=== PATIENT | male | born 1960 | race Caucasian/White ===

== ENCOUNTER 2020-11-05 05:53 | Inpatient (IN) | payer OTHER, SELFPAY ==
[~2020-11-05] VITALS: Ht 157.5 cm; Wt 48.1 kg
--- NOTE | 2020-11-05 05:54 | NUR ---
PT BIBA TO BED 08.
[2020-11-05] MEDS ORDERED: PIPERACILLIN/TAZOBACTAM 3.375 GM in DEXTROSE 5% 50 ML IV ONE (06:00)
[2020-11-05] MEDS ORDERED: ALBUTEROL SULFATE/IPRATROPIU 3 ML SOL IH ONE (06:00)
[2020-11-05] MEDS ORDERED: LEVOFLOXACIN 750 MG/D5W PREMIX 150 ML IV ONE (06:00)
[2020-11-05] MEDS ORDERED: VANCOMYCIN 1,000 MG in DEXTROSE 5% 250 ML IV ONE (06:00)
[2020-11-05] MEDS ORDERED: DEXAMETHASONE 4 MG/ML VIAL IVP ONE (06:00)
--- NOTE | 2020-11-05 06:00 | NUR ---
60 Y/O MALE BIBA FROM HOME WITH SOB, 76% ON CPAP. COVID+ ON 10/22/20. PT PLACED ON BIPAP BY RT. O2 SATURATION 93%. LUNGS SOUNDS WHEEZING. TACHYPNEA. MEDHX- DM NKA
--- NOTE | 2020-11-05 06:00 | NUR ---
20 G IV SITE ESTABLISHED TO R AC, SITE WAS PATENT. FLUSHED WITH 10 ML OF 0.9% NS. NO INFILTRATION, PAIN OR REDNESS NOTED. BLOOD WAS COLLECTED.
[2020-11-05 06:05] VITALS: BP 123/79
[2020-11-05] MEDS ORDERED: PIPERACILLIN/TAZOBACTAM 3.375 GM VIAL IV ONE (06:13)
[2020-11-05] MEDS ORDERED: VANCOMYCIN 1,000 MG VIAL ONE (06:13)
--- NOTE | 2020-11-05 06:15 | NUR ---
BLOOD DRAWS, LATONYA, NOVEL, AND FLU SAMPLES COLLECTED AND SENT TO LAB.
--- NOTE | 2020-11-05 06:44 | NUR ---
XRAY AT BEDSIDE
--- NOTE | 2020-11-05 06:44 | NUR ---
RT AT BEDSIDE
[2020-11-05 06:58] LABS: EOSINOPHILS % (AUTO) 0.2 % (0.0-4.0); HEMATOCRIT 44.7 % (36-52); HEMOGLOBIN 15.3 g/dL (12.0-18.0); LYMPHOCYTES # (AUTO) 0.9 K/uL (2.0-11.5); LYMPHOCYTES % (AUTO) 7.2 % (20.5-51.1); MEAN CORPUSCULAR HEMOGLOBIN 31 pg (27-31); MEAN CORPUSCULAR HGB CONC 34 g/dL (33-37); MEAN CORPUSCULAR VOLUME 89.9 fL (80-94); MONOCYTES # (AUTO) 0.6 K/uL (0.8-1.0); NEUTROPHILS # (AUTO) 10.7 K/uL (1.8-7.7); NEUTROPHILS % (AUTO) 87.6 % (42.2-75.2); PLATELET COUNT (AUTO) 304 K/uL (140-450); RED BLOOD CELL COUNT(AUTO) 4.97 MIL/uL (4.20-6.10); RED CELL DISTRIBUTION WIDTH 13.6 % (11.6-13.7); WHITE BLOOD COUNT (AUTO) 12.2 K/uL (4.8-10.8)
[2020-11-05 07:08] LABS: ALBUMIN 2.3 g/dL (3.4-5.0); ANION GAP 17.6 (8-16); CREATININE 0.8 mg/dL (0.6-1.3); POTASSIUM 3.6 mmol/L (3.5-5.1); TOTAL BILIRUBIN 1.4 mg/dL (0.0-1.0)
[2020-11-05] MEDS ORDERED: METF500T2 PO (07:11)
--- NOTE | 2020-11-05 07:21 | NUR ---
REPORT GIVEN TO TEE JOSEPH FOR CONTINUITY OF CARE
[2020-11-05 07:22] LABS: D-DIMER > 5000 ng/ml (0-400)
[2020-11-05] MEDS ORDERED: ENOXAPARIN 60 MG/0.6 ML SYR SUBQ ONE (07:45)
[2020-11-05 08:22] LABS: FIBRINOGEN > 475 mg/dL (200-400)
[2020-11-05] MEDS ORDERED: HYDROcodone/APAP 5/325 MG 1 TAB TAB PO ONE (08:30)
--- NOTE | 2020-11-05 08:46 | NUR ---
Performed WILBERT GUZMAN, walked to lab.
--- NOTE | 2020-11-05 09:10 | NUR ---
FAMILY CONTACT INFO TISHA (DAUGHTER) [phone] KARUNA (SON) [phone]
--- NOTE | 2020-11-05 10:15 | NUR ---
Lactic acid 2.8--critical value received from lab.
[2020-11-05] MEDS ORDERED: KCL 20 MEQ/WATER INJ PREMIX 200 ML IV PRN (11:00)
[2020-11-05] MEDS ORDERED: MORPHINE SULFATE 4 MG/ML SYR IVP PRN (11:00)
[2020-11-05] MEDS ORDERED: NACL 0.9% 1,000 ML IV SCH (11:00)
[2020-11-05] MEDS ORDERED: HYDROcodone/APAP 5/325 MG 1 TAB TAB PO PRN (11:00)
[2020-11-05] MEDS ORDERED: LORazepam 1 MG TAB PO PRN (11:00)
[2020-11-05] MEDS ORDERED: ONDANSETRON 4 MG/2 ML VIAL IVP PRN (11:00)
[2020-11-05] MEDS ORDERED: POTASSIUM CHLORIDE 10 MEQ TABER PO PRN (11:00)
[2020-11-05] MEDS ORDERED: MAGNESIUM OXIDE 400 MG TAB PO PRN (11:00)
[2020-11-05] MEDS ORDERED: MAG SULF 2000 MG/WATER PREMIX 50 ML IV PRN (11:00)
[2020-11-05] MEDS ORDERED: remdesivir COMMUNICATION ORDER 1 EA MISC MC PRN (11:05)
[2020-11-05] MEDS ORDERED: LORazepam 2 MG/ML VIAL IVP PRN (11:45)
[2020-11-05 11:46] VITALS: BP 118/69
[2020-11-05] MEDS ORDERED: AZITHROMYCIN 500 MG in DEXTROSE 5% 250 ML IV SCH (13:00)
[2020-11-05] MEDS ORDERED: AZITHROMYCIN 500 MG INJ VIAL IV ONE (13:03)
[2020-11-05] MEDS ORDERED: remdesivir CLINICAL MONITORING 1 EA MISC MC PRN (13:35)
--- NOTE | 2020-11-05 14:20 | NUR ---
PT AT LUNCH PT WAS PLACED ON HIGH FLOW NASAL CANNULA TO EAT. Sp02 WAS CONSISTENTLY IN THE MID 80S ALTHOUGH PT DENIED DYSPNEA/SOB AND WAS ABLE TO EAT ~1/2 HIS MEAL TRAY. PLACED PT BACK ON BiPAP 16 15/8 50%; Sp02 95% AND TOLERATING WELL.
[2020-11-05] MEDS ORDERED: REMDESIVIR (EUA) 200 MG in NACL 0.9% 100 ML IV SCH (17:00)
--- NOTE | 2020-11-05 18:16 | NUR ---
Spoke with grandson, Tanmay [phone] for pt updates.
[2020-11-05 18:42] VITALS: BP 116/70
--- NOTE | 2020-11-05 19:00 | NUR ---
RECEIVED TRANSFER OF CARE REPORT FROM TEE JOSEPH FOR CONTINUATION OF CARE.
--- NOTE | 2020-11-05 19:30 | NUR ---
60 YR OLD MALE AOX4. PATIENT WAS FOUND AWAKE ON BED IN SEMI-FOWLERS POSITION. PATIENT STATES NO PAIN, NO NAUSEA, AND NO VOMITING. PATIENT LUNG SOUNDS WHEEZES BILATERALLY. HEART SOUNDS WNL. BED LOCKED LOWEST POSITION WITH 2 SIDE RAILS UP AND CALL LIGHT WITHIN REACH. WILL CONTINUE TO MONITOR.
--- NOTE | 2020-11-05 21:45 | NUR ---
AOX4. PATIENT WAS FOUND AWAKE ON BED IN SEMI-FOWLERS POSITION. PATIENT STATES NO PAIN, NO NAUSEA, AND NO VOMITING. PATIENT LUNG SOUNDS WHEEZES BILATERALLY. HEART SOUNDS WNL. BED LOCKED LOWEST POSITION WITH 2 SIDE RAILS UP AND CALL LIGHT WITHIN REACH. WILL CONTINUE TO MONITOR.
[2020-11-05] MEDS: ENOXAPARIN 60 MG/0.6 ML SYR SUBQ SCH (21:57)
--- NOTE | 2020-11-05 22:40 | NUR ---
PATIENT WAS FOUND AWAKE ON BED IN SEMI-FOWLERS POSITION. PATIENT STATES NO PAIN, NO NAUSEA, AND NO VOMITING. PATIENT LUNG SOUNDS WHEEZES BILATERALLY WITH EQUAL RISE AND FALL UPON RESPIRATIONS. HEART SOUNDS WNL. BED LOCKED LOWEST POSITION WITH 2 SIDE RAILS UP AND CALL LIGHT WITHIN REACH. WILL CONTINUE TO MONITOR.
--- NOTE | 2020-11-05 22:54 | NUR ---
RT AT PATIENT BEDSIDE.
--- NOTE | 2020-11-06 01:20 | NUR ---
PATIENT WAS FOUND ASLEEP ON BED IN SEMI-FOWLERS POSITION. PATIENT HAS EQUAL RISE AND FALL UPON RESPIRATIONS. BED LOCKED LOWEST POSITION WITH 2 SIDE RAILS UP AND CALL LIGHT WITHIN REACH. WILL CONTINUE TO MONITOR.
--- NOTE | 2020-11-06 02:39 | NUR ---
PATIENT WAS FOUND AWAKE ON BED IN SEMI-FOWLERS POSITION. PATIENT STATES NO PAIN. PATIENT LUNG SOUNDS WHEEZES BILATERALLY WITH EQUAL RISE AND FALL UPON RESPIRATIONS. PATIENT REQUESTED URINAL. PATIENT WAS PROVIDED URINAL TO USE. BED LOCKED LOWEST POSITION WITH 2 SIDE RAILS UP AND CALL LIGHT WITHIN REACH. WILL CONTINUE TO MONITOR.
--- NOTE | 2020-11-06 03:37 | NUR ---
PATIENT WAS FOUND AWAKE ON BED IN SEMI-FOWLERS POSITION. PATIENT STATES NO PAIN. PATIENT HAS EQUAL RISE AND FALL UPON RESPIRATIONS. 425 ML OF CLEAR DARK YELLOW URINE EMPTIED FROM URINAL. BED LOCKED LOWEST POSITION WITH 2 SIDE RAILS UP AND CALL LIGHT WITHIN REACH. WILL CONTINUE TO MONITOR.
--- NOTE | 2020-11-06 04:25 | NUR ---
PATIENT FOUND ASLEEP IN SEMI-FOWLERS POSITION IN BED. PATIENT HAS EQUAL RISE AND FALL UPON RESPIRATIONS. BED LOCKED IN LOWEST POSITION WITH 2 SIDE RAILS UP. CALL LIGHT WITHIN REACH. [facility]
[2020-11-06 04:48] VITALS: BP 127/65
--- NOTE | 2020-11-06 06:06 | NUR ---
PATIENT FOUND ASLEEP IN SEMI-FOWLERS POSITION IN BED. PATIENT LUNG SOUNDS WHEEZES BILATERALLY. PATIENT HAS EQUAL RISE AND FALL UPON RESPIRATIONS. BED LOCKED IN LOWEST POSITION WITH 2 SIDE RAILS UP. CALL LIGHT WITHIN REACH. WILL CONTINUE TO MONTIOR.
--- NOTE | 2020-11-06 06:51 | NUR ---
PATIENT FOUND AWAKE IN SEMI-FOWLERS POSITION IN BED. PATIENT HAS EQUAL RISE AND FALL UPON RESPIRATIONS. PATIENT STATES NO PAIN. BED LOCKED IN LOWEST POSITION WITH 2 SIDE RAILS UP. CALL LIGHT WITHIN REACH. WILL CONTINUE TO MONTIOR.
[2020-11-06 07:17] LABS: BASOPHILS % (AUTO) 0.1 % (0.0-2.0); HEMATOCRIT 40.3 % (36-52); HEMOGLOBIN 13.5 g/dL (12.0-18.0); LYMPHOCYTES # (AUTO) 0.7 K/uL (2.0-11.5); MEAN CORPUSCULAR HEMOGLOBIN 30 pg (27-31); MEAN CORPUSCULAR HGB CONC 34 g/dL (33-37); MEAN CORPUSCULAR VOLUME 90.4 fL (80-94); MONOCYTES % (AUTO) 5.4 % (1.7-9.3); NEUTROPHILS # (AUTO) 17.2 K/uL (1.8-7.7); PLATELET COUNT (AUTO) 306 K/uL (140-450); RED BLOOD CELL COUNT(AUTO) 4.46 MIL/uL (4.20-6.10); RED CELL DISTRIBUTION WIDTH 13.8 % (11.6-13.7); WHITE BLOOD COUNT (AUTO) 18.9 K/uL (4.8-10.8)
--- NOTE | 2020-11-06 07:17 | NUR ---
TRANSFER OF CARE REPORT PROVIDED TO HEIDI JOSEPH.
--- NOTE | 2020-11-06 07:18 | NUR ---
REPORT RECEIVED FROM JAKE MORROW
[2020-11-06 07:26] VITALS: BP 103/64
[2020-11-06 07:44] LABS: LYMPHOCYTES % (AUTO) 3.5 % (20.5-51.1)
--- NOTE | 2020-11-06 07:45 | NUR ---
PT RESTING IN SEMI-FOWLERS. PT REPOSITIONED IN BED TO POSITION OF COMFORT. ALL PT NEEDS MET AT THIS TIME. VIDEO NETWORK ENGINEER IN PLACE. BED LOCKED IN LOWEST POSITION, SIDE RAILS X 2, CALL LIGHT IN REACH
--- NOTE | 2020-11-06 07:50 | NUR ---
FAMILY CALLED TO REQUEST UPDATE. STATUS UPDATE PROVIDED VIA PHONE CALL TO TISHA/SON (OSD CLERK).
[2020-11-06 07:56] LABS: ALBUMIN 1.9 g/dL (3.4-5.0); ANION GAP 14.9 (8-16); CARBON DIOXIDE 22.8 mmol/L (21-32); CREATININE 0.7 mg/dL (0.6-1.3); MAGNESIUM 2.3 mg/dL (1.8-2.4); POTASSIUM 3.7 mmol/L (3.5-5.1); TOTAL BILIRUBIN 0.6 mg/dL (0.0-1.0)
[2020-11-06] MEDS: DOCUSATE SODIUM 100 MG GELCAP PO SCH (08:25)
[2020-11-06] MEDS: ENOXAPARIN 60 MG/0.6 ML SYR SUBQ SCH ×2 (08:26→20:20)
[2020-11-06] MEDS: DEXAMETHASONE 4 MG/ML VIAL IVP SCH (08:26)
--- NOTE | 2020-11-06 08:27 | NUR ---
PATIENT HAS BEEN SCREENED AND CATEGORIZED MODERATE NUTRITION RISK. PATIENT WILL BE SEEN WITHIN 3-5 DAYS OF ADMISSION. 11/08/20 - 11/10/[address]
--- NOTE | 2020-11-06 08:50 | NUR ---
PT RESTING IN SEMI-FOWLERS POSITION. ALL PT NEEDS MET AT THIS TIME. AUXILIARY EQUIPMENT TENDER IN PLACE. EQUAL CHEST RISE AND FALL AND NO DISTRESS NOTED. BED LOCKED IN LOWEST POSITION, SIDE RAILS X2, CALL LIGHT IN REACH
--- NOTE | 2020-11-06 09:47 | NUR ---
STAYED AT BEDSIDE WHILE PT WAS SWITCHED TO 10L OXIMIZER DURING BREAKFAST, PT DESAT TO 80% WHILE EATING, PLACED BACK ON BIPAP.
--- NOTE | 2020-11-06 10:15 | NUR ---
GAVE REPORT TO JAKE BARTON VIA TELEPHONE
--- NOTE | 2020-11-06 10:15 | NUR ---
RECEIVED PHONE REPORT FROM ER NURSE BRISA, PT CC: WHEEING AND SOB WITH 60% PO2 ON ROOM AIR, ADMITTED FOR COVID PNA SEPSIS, HISTORY OF DM, ON BIPAP 90% FIO2, SATURATING @ 94-100%, IV TO R AC 20G, AND L FA 18G SL. PT ON CCHO 60GMN DIET, UNABLE TO EAT DUE TO DESATURATION. PT SKIN INTACT, USES URINAL. COVID POSITIVE ON RAPID, PENDING COVID PCR. FULL CODE, ADMITTING DR IS DR. REYEZ.
[2020-11-06 10:45] VITALS: BP 133/67
--- NOTE | 2020-11-06 10:45 | NUR ---
Patient will be admitted to care of Dr. Schulz. Admited to ICU. Will go to room 128-B. Belongings list completed. Report to JAKE Coyle.
--- NOTE | 2020-11-06 10:45 | NUR ---
Patient will be admitted to care of Dr. Schulz. Admited to Telemetry. Will go to room [facility]. [facility]-IT list completed. Report to JAKE Coyle. Addendum: 11/06/20 at 1105 by [facility] Amendment undone in EDM - 11/06/20 at 1110 by [facility] Patient will be admitted to care of Dr. Schulz. Admited to ICU. Will go to room 128-. [facility] list completed. Report to JAKE Coyle.
--- NOTE | 2020-11-06 11:00 | NUR ---
PT ARRIVED AT UNIT IN STABLE CONDITION, STABLE ON NON REBREATHER MASK 15LPM, SATURATING @ 96%. PT ABLE TO MOVE TO BED, TOLERATING WELL. WILL CONTINUE TO MONITOR.
--- NOTE | 2020-11-06 11:02 | NUR ---
PT MOVED FROM ER 8 TO [address] AND [address] ON NRB AT 15L 100% DOING WELL O2 SAT 98% AND HR 65 RR24 PT IS AWAKE AND ALERT BIPAP AT BEDSIDE RN ORALIA NOTIFIED
[2020-11-06 12:00] VITALS: BP 122/66
--- NOTE | 2020-11-06 15:33 | NUR ---
CALLED LAB TO FOLLOW-UP ON 1 UNIT CONVALESCENT PLASMA. PER LAB THEY HAVE ONE AND WILL CALL ME BACK. WILL CONTINUE TO MONITOR.
[2020-11-06 16:00] VITALS: BP 126/72
--- NOTE | 2020-11-06 16:52 | NUR ---
REC'D PT FROM ICU, PT ON 15L NRB, SATURATION 94%, A/Ox4, CCHO 60G DIET, LFA 15G, R.AC 20G SL. PT STABLE
--- NOTE | 2020-11-06 16:58 | NUR ---
GAVE REPORT TO TELEMETRY NURSE FOR CONTINUITY OF CARE. PATIENT IN STABLE CONDITION.
[2020-11-06] MEDS: REMDESIVIR (EUA) 100 MG in NACL 0.9% 100 ML IV SCH (17:00)
--- NOTE | 2020-11-06 18:00 | NUR ---
BEGAN PLASMA TRANSFUSION, PT STABLE NO SIGN OF DISTRESS. L. FOREARM 18G PATENT,
--- NOTE | 2020-11-06 18:30 | NUR ---
209ML OF PLASMA INFUSED PT TOLERATED PROCEDURE WELL.
--- NOTE | 2020-11-06 19:20 | NUR ---
RECEIVED BEDSIDE REPORT FROM DAY SHIFT NURSE. PATIENT AWAKE, RESPIRATION EVEN UNLABORED ON 15L NRB MASK O2 SATING 91% NO DISTRESS NOTED. SKIN IS WARM AND DRY. IV PATENT AND INTACT. S/P PLASMA. PLAN OF CARE WAS DISCUSSED. ALL SAFETY MEASURES IN PLACE. BED IS AT LOW POSITION. CALL LIGHT WITHIN REACH. WILL CONTINUE TO MONITOR
--- NOTE | 2020-11-06 19:30 | NUR ---
ENDORSED PT TO SAFE DEPOSIT ATTENDANT NURSE, PT STABLE, EATING. NO SIGN OF DISTRESS . 15L NRB SATURATION 92%
[2020-11-06 20:00] VITALS: BP 156/72
--- NOTE | 2020-11-06 20:20 | NUR ---
ALL SCHEDULED MEDS WERE GIVEN PER ORDER. NO ASE NOTED. WILL CONTINUE TO MONITOR
[2020-11-07] VITALS: BP 155/56
--- NOTE | 2020-11-07 00:20 | NUR ---
VITALS WERE TAKEN
--- NOTE | 2020-11-07 01:47 | NUR ---
MADE ROUNDS. PATIENT SLEEPING RESPIRATION EVEN UNLABORED ON 15L NRB MASK NO DISTRESS NOTED. WILL CONTINUE TO MONITOR
--- NOTE | 2020-11-07 02:50 | NUR ---
MADE ROUNDS. PATIENT SLEEPING RESPIRATION EVEN UNLABORED ON 15L NRB MASK NO DISTRESS NOTED. WILL CONTINUE TO MONITOR
[2020-11-07 04:00] VITALS: BP 148/74
--- NOTE | 2020-11-07 05:00 | NUR ---
MORNING CARE PROVIDED
--- NOTE | 2020-11-07 07:23 | NUR ---
ENDORSED PATIENT TO DAY SHIFT NURSE FOR CONTINUITY OF CARE.
[2020-11-07 08:00] VITALS: BP 153/78
--- NOTE | 2020-11-07 08:00 | NUR ---
RECEIVED REPORT FROM ANALYTICAL STRATEGIST FOR CONTINUITY OF CARE. PATIENT ALERT AWAKE ORIENTED X4. PATIENT ON 15L NRB SATURATION 96%. ON MONITOR SHOWS SR. WITH IV @ TKO, DRY AND INTACT. DENIES PAIN. INITIAL ASSESSMENT INITIATED. NEEDS ATTENDED. WILL CONTINUE TO MONITOR.
[2020-11-07 08:37] LABS: HEMATOCRIT 41.4 % (36-52); HEMOGLOBIN 13.9 g/dL (12.0-18.0); LYMPHOCYTES # (AUTO) 0.8 K/uL (2.0-11.5); LYMPHOCYTES % (AUTO) 3.5 % (20.5-51.1); MEAN CORPUSCULAR HEMOGLOBIN 31 pg (27-31); MEAN CORPUSCULAR HGB CONC 34 g/dL (33-37); MONOCYTES # (AUTO) 1.2 K/uL (0.8-1.0); MONOCYTES % (AUTO) 5.4 % (1.7-9.3); NEUTROPHILS # (AUTO) 20.3 K/uL (1.8-7.7); NEUTROPHILS % (AUTO) 91.1 % (42.2-75.2); PLATELET COUNT (AUTO) 373 K/uL (140-450); RED BLOOD CELL COUNT(AUTO) 4.55 MIL/uL (4.20-6.10); RED CELL DISTRIBUTION WIDTH 14.1 % (11.6-13.7); WHITE BLOOD COUNT (AUTO) 22.2 K/uL (4.8-10.8)
[2020-11-07] MEDS: DEXAMETHASONE 4 MG/ML VIAL IVP SCH (08:37)
[2020-11-07] MEDS: DOCUSATE SODIUM 100 MG GELCAP PO SCH (08:37)
[2020-11-07] MEDS: ENOXAPARIN 60 MG/0.6 ML SYR SUBQ SCH ×2 (08:38→20:46)
[2020-11-07 08:51] LABS: ALBUMIN 1.9 g/dL (3.4-5.0); ANION GAP 16.5 (8-16); CARBON DIOXIDE 22.2 mmol/L (21-32); CREATININE 0.6 mg/dL (0.6-1.3); MAGNESIUM 2.1 mg/dL (1.8-2.4); POTASSIUM 3.7 mmol/L (3.5-5.1); TOTAL BILIRUBIN 0.6 mg/dL (0.0-1.0)
[2020-11-07 12:00] VITALS: BP 142/75
[2020-11-07 13:17] LABS: FERRITIN 1739 ng/mL (30 - 400); LACTATE DEHYDROGENASE 631 IU/L (0-214)
--- NOTE | 2020-11-07 13:43 | NUR ---
SOCIAL WORK NOTE: Patient's Orientation Unable To Assess Information Provided By TISHA KING - DAUGHTER Comments SW WAS UNABLE TO MEET PATIENT AT BEDSIDE. SW COMPLETED ASSESSMENT WITH PATIENT'S DAUGHTER. Film Loader, Realtionship and Phone Number TISHA CARLOS [phone] [facility] Power of Secondary School Teacher No Does Patient Have a POLST No Identifying Problems No Social Work Triggers Is A Social Work Consult Needed No Mandate Report Filed No Explanation Of Identifying Problems PATIENT IS A 60-YEAR-OLD MALE ADMITTED FOR COVID, PNEUMONIA, AND SEPSIS. PATIENT HAS PMHX OF NIDDM. Admitted From Home Pre-Admission Level Of Functioning Status Independent/Ambulatory Prior Resources/Services Used In Last 12 Months No Prior Resources Used Prior DME No Prior DME Used Dialysis Comments N/A Living Situation Apartment Lives With Family Patient Had Caregiver No Home Support No Caregiver Issues Financial Issues No Known Financial Issue Referral To The Financial Counselor Needed No Factors/Needs No D/C Needs Identified Pt/Rep Participated In Discharge Plan Yes Patient/Family Agress With Discharge Plan Yes Discharge Plan Comments TENTATIVE DISCHARGE PLAN IS FOR PATIENT TO RETURN HOME. DC Plan Status Initiated Addendum: 12/02/20 at 0851 by Blas Bradshaw YEMI RECEIVED PHYSICIANS ORDER TO REMOVE TISHA MALIK DECISION MAKER. YEMI CONTACTED EVELIA MALIK PER PHYSICIANS ORDER [phone]. EVELIA PROVIDED PHONE TO FATHER, KARUNA MALIK WHO CAN BE CONTACTED [phone]. KARUNA STATED THAT PATIENT REQUESTED FOR CHANGE WELL. YEMI CONTACTED MEDICAL TECHNOLOGIST BLOOD BANK WHO STATED THAT PATIENT WAS NOT ALERT AND ORIENTED. YEMI CONTACTED EVELIA AND STATED THAT REQUEST CANNOT BE DONE WITHOUT CONSENT OF PATIENT.
[2020-11-07 16:00] VITALS: BP 137/68
--- NOTE | 2020-11-07 16:02 | NUR ---
DC PLANNIN YRS OLD MALE PATIENT WAS ADMITTED FROM HOME WITH A DX OF COVID PNEUMONIA AND SEPSIS. PT HAS A HX OF COVID ON 10/22/20 . CXR SHOWED CONSISTENT WITH COVID 19 MULTIFOCAL PNEUMONIA . ON 15L/NRB SATING 92%. STARTED COVID TREATMENT, ROCEPHIN AND AZITHROMYCIN IV ABX. CONSULTED WITH ID AND PULMO. DC PLAN TO GO HOME WHEN STABLE CM TO FOLLOW. Addendum: 11/11/20 at 0816 by Isaura Parnell RECEIVED A CALL FROM JUAN J OF [employer]. CM ASSIGNED IS ELIZABETH [phone], MAIN NUMBER [phone] [facility] FOR CASE MANAGEMENT AND FAX [phone]. Addendum: 11/14/20 at 1210 by Christine Figueroa RN DC PLANNING CALLED [facility] SPOKE WITH ISRAEL WOOD I NEED TO CALL [phone], CALLED THE NUMBER SPOKE WITH DAQUAN THE CASE SOCIAL SCIENCE MANAGER STATED [facility] IS NO AT RISK AND TO CALL [facility] IS AT RISK FOR HOSPITAL STAY [facility] NUMBER [phone]. CALLED THE NUMBER SPOKE WITH PAVITHRA BRINK UPDATED HER PT'S CLINICAL PROVIDE AUTH # [id number] STATED REVIEWED AND APPROVED THE STAY. KADE ARSHAD PROVIDE HER CELL # [phone] AND TO LET HER KNOW ANY DC PLAN OR UPDATE. CM TO FOLLOW Addendum: 11/15/20 at 1118 by Christine Figueroa RN DC PLANNING: CALLED PAVITHRA BRINK AT [facility] [phone] LEFT A MESSAGE. CM TO FOLLOW Addendum: 11/15/20 at 1347 by Christine Figueroa RN DC PLANNING: PT HAD LTAC ORDER FAXED TO [employer] AND FAXED TO JAMES AT [facility]. CUBA TO FOLLOW. CALLED PT'S DAUGHTER SPOKE WITH TISHA EXPLAIN THE NEED FOR LTAC AND JAMES FROM [facility] WILL CONTACT HER. CM TO FOLLOW Addendum: 11/16/20 at 1424 by Valery Petty CM NIKKO EARLY: SET UP WILL CALL TRANSPORTATION WITH [facility] [phone]. SET UP WITH AN RT. PENDING BED NUMBER FOR [facility]. Addendum: 11/16/20 at 1435 by Valery Petty CM NIKKO EARLY: SPOKE TO CUBA LAUREANO AT [facility] TO GET AUTH FOR TRANSPORTATION. SHE ASKED WHERE PATIENT WAS GOING PROVIDED HER WITH THE [facility] LOCATION. SHE STATED THAT SHE HAS TO GET APPROVAL FROM THE DOCTOR FIRST ON LOCATION BECAUSE PATIENT WAS SUPPOSED TO GO TO [facility] HOWEVER SHE SAID IT SHOULD BE APPROVED BECAUSE THERE IS AN OUTBREAK AT THIS TIME IN [facility]. SHE IS GOING TO REACH OUT TO THE DOCTOR. SHE IS REQUESTING THAT JAMES FROM [place] CONTACTS HER. PROVIDED JAMES WITH SRIDEVI'S NUMBER Addendum: 11/17/20 at 0924 by Valery Petty CM NIKKO FARM EQUIPMENT OPERATOR: SPOKE TO CUBA RIZO FOR [facility] [id number] AND AUTH FOR [facility] [id number] Addendum: 11/17/20 at 1521 by Christine Figueroa RN DC PLANNING: STILL AWAITING FOR BED AT [facility],PER JAMES AT [facility] WILL CALL BACK WHEN HE HAS A BED. CM TO FOLLOW Addendum: 11/18/20 at 1355 by Christine Figueroa RN DC PLANNING: CALLED JAMES JIMENEZ TO FOLLOW UP WITH THE TRANSFER TO [facility]. PER JAMES NO BED AVAILABLE AT THIS TIME. ON O2 HIGH FLOW 40L/NC FIO2 100% SATING 90%. CM TO FOLLOW UP Addendum: 11/18/20 at 1640 by Christine Figueroa RN DC PLANNING: RECEIVED A CALL FROM TONY TONG WITH [facility] [place] [phone] ACCEPTED PATIENT UNDER THE CARE OF DR RODRIGUEZ/DEVON ROOM NUMBER [id number]. BUT PT CONDITION CHANGED AND TRANSFERRED TO ICU, NOTIFIED JAMES AND CUBA TO FOLLOW. Addendum: 11/18/20 at 1645 by Christine Figueroa RN DC PLANNING: CALLED INSURANCE [employer] SPOKE WITH PAVITHRA NOTIFIED HER PT IS IN ICU AT THIS TIME, AND HEL THE TRANSFER TO LTAC. Addendum: 11/21/20 at 1409 by Isaura Parnell CM REMAINS IN ICU. INTUBATED TO VENT FIO2 40%, PEEP 10, O2 SAT 92%. SEDATED WITH FENTANYL AND PROPOFOL. ON TPN, ROCEPHIN. PER PULMO -DAILY SAT TOLERATED, O2 SAT GOAL 88% AND ABOVE. Addendum: 11/21/20 at 1618 by Isaura Parnell CM CONTACTED CUBA LAUREANO AT [employer] [phone] TO PROVIDE UPDATES, NO ANSWER. LEFT MESSAGE. Addendum: 11/29/20 at 1429 by Isaura Parnell CM REMAINS INTUBATED TO VENT FIO2 50%, PEEP 6, O2 SAT 93%. SEDATED WITH FENTANYL, PROPOFOL. PER PULMO - WEAN TOLERATED, O2 SAT GOAL 88% AND ABOVE.
[2020-11-07] MEDS: REMDESIVIR (EUA) 100 MG in NACL 0.9% 100 ML IV SCH (17:24)
--- NOTE | 2020-11-07 18:53 | NUR ---
PATIENT RESTING IN BED, TITRATE O2 TO 12L NRB, SATURATION 94%. WILL ENDORSE TO THE NEXT SHIFT.
--- NOTE | 2020-11-07 19:20 | NUR ---
RECEIVED BEDSIDE REPORT FROM DAY SHIFT NURSE. PATIENT AWAKE, RESPIRATION EVEN UNLABORED ON 15L NRB MASK O2 SATING 91-93% NO DISTRESS NOTED. SKIN IS WARM AND DRY. IV PATENT AND INTACT. PLAN OF CARE WAS DISCUSSED. ALL SAFETY MEASURES IN PLACE. BED IS AT LOW POSITION. CALL LIGHT WITHIN REACH. WILL CONTINUE TO MONITOR
[2020-11-07 20:00] VITALS: BP 137/72
--- NOTE | 2020-11-07 20:45 | NUR ---
ALL SCHEDULED MEDS WERE GIVEN PER ORDER. NO ASE NOTED. WILL CONTINUE TO MONITOR
--- NOTE | 2020-11-07 23:26 | NUR ---
MADE ROUNDS. PATIENT SLEEPING RESPIRATION EVEN UNLABORED ON 15L NRB MASK. NO DISTRESS NOTED. WILL CONTINUE TO MONITOR.
[2020-11-08] VITALS: BP 131/66
--- NOTE | 2020-11-08 02:07 | NUR ---
MADE ROUNDS. PATIENT SLEEPING RESPIRATION EVEN UNLABORED ON 15L NRB MASK. NO DISTRESS NOTED. WILL CONTINUE TO MONITOR.
[2020-11-08 04:00] VITALS: BP 138/68
--- NOTE | 2020-11-08 04:15 | NUR ---
MORNING CARE PROVIDED
--- NOTE | 2020-11-08 07:18 | NUR ---
ENDORSED PATIENT TO DAY SHIFT NURSE FOR CONTINUITY OF CARE
--- NOTE | 2020-11-08 07:22 | NUR ---
RECEIVED REPORT FROM NIGHT NURSE PATIENT IS AAOX4 ON 15LPM NON REBREATHER MASK SATURATION AT 90-91% S/P PLASMA ON NOVEMBER 06, 2020 SKIN INTACT, IV INTACT ON LEFT FA AND RIGHT AC, TKO SAFETY MEASURES IN PLACE AND CALL LIGHT WITHIN REACH.
[2020-11-08 08:00] VITALS: BP 131/67
[2020-11-08] MEDS: DOCUSATE SODIUM 100 MG GELCAP PO SCH (08:25)
[2020-11-08] MEDS: ENOXAPARIN 60 MG/0.6 ML SYR SUBQ SCH ×2 (08:26→20:34)
[2020-11-08] MEDS: DEXAMETHASONE 4 MG/ML VIAL IVP SCH (08:26)
[2020-11-08 08:38] LABS: BASOPHILS % (AUTO) 0.1 % (0.0-2.0); HEMATOCRIT 41.3 % (36-52); HEMOGLOBIN 13.9 g/dL (12.0-18.0); LYMPHOCYTES # (AUTO) 0.9 K/uL (2.0-11.5); LYMPHOCYTES % (AUTO) 4.9 % (20.5-51.1); MEAN CORPUSCULAR HEMOGLOBIN 31 pg (27-31); MEAN CORPUSCULAR HGB CONC 34 g/dL (33-37); MEAN CORPUSCULAR VOLUME 90.9 fL (80-94); MONOCYTES # (AUTO) 0.9 K/uL (0.8-1.0); MONOCYTES % (AUTO) 5.2 % (1.7-9.3); NEUTROPHILS # (AUTO) 15.8 K/uL (1.8-7.7); NEUTROPHILS % (AUTO) 89.8 % (42.2-75.2); PLATELET COUNT (AUTO) 366 K/uL (140-450); RED BLOOD CELL COUNT(AUTO) 4.54 MIL/uL (4.20-6.10); RED CELL DISTRIBUTION WIDTH 13.7 % (11.6-13.7); WHITE BLOOD COUNT (AUTO) 17.6 K/uL (4.8-10.8)
--- NOTE | 2020-11-08 08:40 | NUR ---
MEDICATION DUE GIVEN CHECK VITAL SIGNS PRIOR TO MEDICATION BP 131/67 AL 83 AND OXYGEN SATURATION AT 90% NO DISTRESS NOTED PATIENT TOLERATED WELL, GAVE PT BREAKFAST, SAFETY MEASURES IN PLACE AND CALL L8IGHT WITHIN REACH. WILL CONTINUE TO MONITOR.
[2020-11-08 09:53] LABS: CREATININE 0.6 mg/dL (0.6-1.3); MAGNESIUM 2.3 mg/dL (1.8-2.4); POTASSIUM 3.8 mmol/L (3.5-5.1); TOTAL BILIRUBIN 0.8 mg/dL (0.0-1.0)
[2020-11-08 12:00] VITALS: BP 118/65
--- NOTE | 2020-11-08 12:00 | NUR ---
MADE ROUNDS AT THIS TIME PATIENT IS STABLE NO DISTRESS NOTED AND VITAL SIGNS TAKEN.
[2020-11-08 12:53] LABS: ANION GAP 16.9 (8-16); CARBON DIOXIDE 19.9 mmol/L (21-32)
--- NOTE | 2020-11-08 14:00 | NUR ---
PATIENT IS STABLE NO DISTRESS NOTED
[2020-11-08] MEDS: REMDESIVIR (EUA) 100 MG in NACL 0.9% 100 ML IV SCH (16:41)
--- NOTE | 2020-11-08 16:48 | NUR ---
MEDICATION DUE GIVEN INFUSING WELL.
[2020-11-08 17:00] VITALS: BP 144/73
--- NOTE | 2020-11-08 19:30 | NUR ---
RECEIVED BEDSIDE REPORT FROM DAY SHIFT NURSE. PATIENT AWAKE EATING DINNER, RESPIRATION EVEN UNLABORED ON 15L NRB MASK O2 SATING 91-93% NO DISTRESS NOTED. SKIN IS WARM AND DRY. IV PATENT AND INTACT. PLAN OF CARE WAS DISCUSSED. ALL SAFETY MEASURES IN PLACE. BED IS AT LOW POSITION. CALL LIGHT WITHIN REACH. WILL CONTINUE TO MONITOR
--- NOTE | 2020-11-08 19:40 | NUR ---
GAVE ENDORSEMENT TO PROJECT ENGINEERING MANAGER NURSE. PATIENT IS IN STABLE CONDITION.
[2020-11-08 20:00] VITALS: BP 96/42
--- NOTE | 2020-11-08 20:30 | NUR ---
ALL SCHEDULED MEDS WERE GIVEN PER ORDER. NO ASE NOTED. WILL CONTINUE TO MONITOR
--- NOTE | 2020-11-08 22:25 | NUR ---
MADE ROUNDS. PATIENT IS AWAKE RESPIRATION EVEN UNLABORED ON 15LNRB MASK NO DISTRESS NOTED. WILL CONTINUE TO MONITOR
[2020-11-09] VITALS: BP 114/59
--- NOTE | 2020-11-09 01:27 | NUR ---
MADE ROUNDS. PATIENT SLEEPING RESPIRATION EVEN UNLABORED ON 15L NRB MASK NO DISTRESS NOTED. WILL CONTINUE TO MONITOR
--- NOTE | 2020-11-09 03:08 | NUR ---
MADE ROUNDS. PATIENT SLEEPING RESPIRATION EVEN UNLABORED ON 15L NRB MASK. NO DISTRESS NOTED. WILL CONTINUE TO MONITOR
[2020-11-09 04:00] VITALS: BP 129/68
--- NOTE | 2020-11-09 07:33 | NUR ---
ENDORSED PATIENT TO DAY SHIFT NURSE FOR CONTINUITY OF CARE
[2020-11-09 08:00] VITALS: BP 114/67
[2020-11-09 08:01] LABS: BASOPHILS % (AUTO) 0.1 % (0.0-2.0); EOSINOPHILS % (AUTO) 0.2 % (0.0-4.0); HEMATOCRIT 42.4 % (36-52); HEMOGLOBIN 14.1 g/dL (12.0-18.0); LYMPHOCYTES # (AUTO) 0.9 K/uL (2.0-11.5); LYMPHOCYTES % (AUTO) 4.9 % (20.5-51.1); MEAN CORPUSCULAR HEMOGLOBIN 30 pg (27-31); MEAN CORPUSCULAR HGB CONC 33 g/dL (33-37); MEAN CORPUSCULAR VOLUME 90.8 fL (80-94); MONOCYTES % (AUTO) 5.2 % (1.7-9.3); NEUTROPHILS # (AUTO) 16.8 K/uL (1.8-7.7); NEUTROPHILS % (AUTO) 89.6 % (42.2-75.2); PLATELET COUNT (AUTO) 359 K/uL (140-450); RED BLOOD CELL COUNT(AUTO) 4.67 MIL/uL (4.20-6.10); RED CELL DISTRIBUTION WIDTH 13.6 % (11.6-13.7); WHITE BLOOD COUNT (AUTO) 18.8 K/uL (4.8-10.8)
[2020-11-09] MEDS: ACETAMINOPHEN 325 MG TAB PO PRN (08:28)
[2020-11-09 09:23] LABS: ANION GAP 19.7 (8-16); CARBON DIOXIDE 19.2 mmol/L (21-32); CREATININE 0.6 mg/dL (0.6-1.3); MAGNESIUM 1.9 mg/dL (1.8-2.4); POTASSIUM 3.9 mmol/L (3.5-5.1); TOTAL BILIRUBIN 0.9 mg/dL (0.0-1.0)
[2020-11-09] MEDS: DOCUSATE SODIUM 100 MG GELCAP PO SCH (10:59)
[2020-11-09] MEDS: DEXAMETHASONE 4 MG/ML VIAL IVP SCH (10:59)
[2020-11-09] MEDS: ENOXAPARIN 60 MG/0.6 ML SYR SUBQ SCH ×2 (11:00→21:31)
[2020-11-09 12:00] VITALS: BP 103/51
[2020-11-09 16:00] VITALS: BP 117/70
[2020-11-09] MEDS: REMDESIVIR (EUA) 100 MG in NACL 0.9% 100 ML IV SCH (17:26)
[2020-11-09 20:00] VITALS: BP 108/63
[2020-11-10] VITALS: BP 100/52
--- NOTE | 2020-11-10 | NUR ---
MADE ROUNDS , NO S/SX OF ACUTE DISTRESS NOTED . WILL CONT. TO MONITOR
--- NOTE | 2020-11-10 02:00 | NUR ---
SLEEPING - O2 SAT WNL .
--- NOTE | 2020-11-10 02:08 | NUR ---
PT SEEN AND ASSESSED. PT ON NON REBREATHER 15L WITH SPO2 98%. PT IN NO RESPIRATORY DISTRESS AT THIS TIME. WILL CONTINUE TO MONITOR PT.
[2020-11-10 04:00] VITALS: BP 97/60
--- NOTE | 2020-11-10 04:00 | NUR ---
NO S/SX OF ACUTE DISTRESS NOTED - O2 SAT WNL .
--- NOTE | 2020-11-10 06:00 | NUR ---
NO COMPLAIN MADE . O2 SAT WNL .
[2020-11-10 06:07] LABS: LD2 FRACTION 25 % (25-40); LD3 FRACTION 27 % (17-27); LD5 FRACTION 18 % (4-20)
--- NOTE | 2020-11-10 07:40 | NUR ---
ENDORSED - PT - STABLE
[2020-11-10 09:10] LABS: BASOPHILS % (AUTO) 0.1 % (0.0-2.0); EOSINOPHILS % (AUTO) 0.1 % (0.0-4.0); HEMATOCRIT 41.5 % (36-52); HEMOGLOBIN 13.8 g/dL (12.0-18.0); LYMPHOCYTES # (AUTO) 0.8 K/uL (2.0-11.5); MEAN CORPUSCULAR HEMOGLOBIN 30 pg (27-31); MEAN CORPUSCULAR HGB CONC 33 g/dL (33-37); MEAN CORPUSCULAR VOLUME 91.1 fL (80-94); MONOCYTES # (AUTO) 1.2 K/uL (0.8-1.0); MONOCYTES % (AUTO) 6.2 % (1.7-9.3); NEUTROPHILS # (AUTO) 16.8 K/uL (1.8-7.7); NEUTROPHILS % (AUTO) 89.6 % (42.2-75.2); PLATELET COUNT (AUTO) 355 K/uL (140-450); RED BLOOD CELL COUNT(AUTO) 4.56 MIL/uL (4.20-6.10); RED CELL DISTRIBUTION WIDTH 13.6 % (11.6-13.7); WHITE BLOOD COUNT (AUTO) 18.8 K/uL (4.8-10.8)
[2020-11-10 09:17] VITALS: BP 97/60
[2020-11-10 10:17] LABS: ANION GAP 16.3 (8-16); CARBON DIOXIDE 20.9 mmol/L (21-32); CREATININE 0.6 mg/dL (0.6-1.3); MAGNESIUM 2.6 mg/dL (1.8-2.4); POTASSIUM 4.2 mmol/L (3.5-5.1); TOTAL BILIRUBIN 0.7 mg/dL (0.0-1.0)
[2020-11-10 10:25] LABS: ALBUMIN 1.9 g/dL (3.4-5.0)
[2020-11-10] MEDS: DEXAMETHASONE 4 MG/ML VIAL IVP SCH (11:51)
[2020-11-10] MEDS: DOCUSATE SODIUM 100 MG GELCAP PO SCH (11:51)
[2020-11-10] MEDS: ENOXAPARIN 60 MG/0.6 ML SYR SUBQ SCH ×2 (11:53→22:40)
[2020-11-10 12:00] VITALS: BP 102/60
[2020-11-10 14:08] LABS: LD1 FRACTION 10 % (17-32); LD4 FRACTION 20 % (5-13)
[2020-11-10 16:00] VITALS: BP 96/59
--- NOTE | 2020-11-10 16:32 | NUR ---
11/10/20 RD INITIAL ASSESSMENT COMPLETED PLEASE REFER TO NUTRITION ASSESSMENT UNDER CARE ACTIVITY FOR ESTIMATED NUTRITIONAL NEEDS. 1. CONTINUE [facility] DIET TOLERATED 2. RECOMMEND GLUCERNA TID 3. RD TO FOLLOW-UP 3-5 DAYS, MODERATE RISK JOSE LUIS DOS SANTOS, RD
--- NOTE | 2020-11-10 18:56 | NUR ---
Patient alert and oriented and remains on 15 L non rebreather oxygen. Vitals stable and able to verbalize needs. Breathing is labored when in supine position but improves with proning and side sleeping. Educated patient on importance of proning, coughing and deep breathing, patient verbalized understanding.
[2020-11-10 20:00] VITALS: BP 113/56
[2020-11-11] VITALS: BP 104/56
--- NOTE | 2020-11-11 | NUR ---
MADE ROUNDS , NO S/SX OF ACUTE DISTRESS NOTED - O2 SAT WNL .
[2020-11-11 04:00] VITALS: BP 101/58
--- NOTE | 2020-11-11 04:00 | NUR ---
MADE ROUNDS . NO S/SX OF ACUTE DISTRESS NOTED .
--- NOTE | 2020-11-11 05:00 | NUR ---
AWAKE C/O COUGH - WILL REFER TO DR. VERONICA . Addendum: 11/11/20 at 0847 by Yolette Davis RN NO REPONSE TO DR. VERONICA .
--- NOTE | 2020-11-11 07:30 | NUR ---
ENDORSED - PT - STABLE . INFORMED AM NURSE PT C/O COUGH AND I REFERRED ABOUT IT TO DR. VERONICA BUT NO RESPONSE
[2020-11-11 09:25] VITALS: BP 110/60
[2020-11-11] MEDS: DOCUSATE SODIUM 100 MG GELCAP PO SCH (10:49)
[2020-11-11] MEDS: DEXAMETHASONE 4 MG/ML VIAL IVP SCH (10:50)
[2020-11-11] MEDS: ENOXAPARIN 60 MG/0.6 ML SYR SUBQ SCH ×2 (10:51→21:38)
[2020-11-11 12:00] VITALS: BP 111/54
[2020-11-11 16:00] VITALS: BP 97/60
[2020-11-11 20:00] VITALS: BP 112/74
[2020-11-12] VITALS: BP 115/61
[2020-11-12 04:00] VITALS: BP 109/61
--- NOTE | 2020-11-12 07:35 | NUR ---
REC'D BEDSIDE ENDORSEMENT FROM NIGHTSHIFT NURSE TO PROCEED W/ CONTINUITY OF CARE.
[2020-11-12 08:00] VITALS: BP 99/58
[2020-11-12 08:32] LABS: BASOPHILS # (AUTO) 0.1 K/uL (0.00-0.22); EOSINOPHILS # (AUTO) 0.2 K/uL (0-0.4); LYMPHOCYTES # (AUTO) 0.9 K/uL (2.0-11.5); MEAN CORPUSCULAR HGB CONC 34 g/dL (33-37); MEAN CORPUSCULAR VOLUME 91.8 fL (80-94)
[2020-11-12 08:39] LABS: BASOPHILS % (AUTO) 0.6 % (0.0-2.0); EOSINOPHILS % (AUTO) 1.1 % (0.0-4.0); HEMATOCRIT 45.3 % (36-52); HEMOGLOBIN 15.2 g/dL (12.0-18.0); LYMPHOCYTES % (AUTO) 4.5 % (20.5-51.1); MEAN CORPUSCULAR HEMOGLOBIN 31 pg (27-31); MONOCYTES # (AUTO) 1.5 K/uL (0.8-1.0); MONOCYTES % (AUTO) 7.2 % (1.7-9.3); NEUTROPHILS # (AUTO) 17.8 K/uL (1.8-7.7); NEUTROPHILS % (AUTO) 86.6 % (42.2-75.2); PLATELET COUNT (AUTO) 419 K/uL (140-450); RED BLOOD CELL COUNT(AUTO) 4.94 MIL/uL (4.20-6.10); RED CELL DISTRIBUTION WIDTH 14.1 % (11.6-13.7); WHITE BLOOD COUNT (AUTO) 20.6 K/uL (4.8-10.8)
[2020-11-12 09:29] LABS: ANION GAP 16.9 (8-16); CARBON DIOXIDE 22.1 mmol/L (21-32); CREATININE 0.6 mg/dL (0.6-1.3); TOTAL BILIRUBIN 0.8 mg/dL (0.0-1.0)
[2020-11-12] MEDS: DOCUSATE SODIUM 100 MG GELCAP PO SCH (09:33)
[2020-11-12] MEDS: DEXAMETHASONE 4 MG/ML VIAL IVP SCH (09:33)
[2020-11-12] MEDS: ENOXAPARIN 60 MG/0.6 ML SYR SUBQ SCH ×2 (09:38→21:25)
--- NOTE | 2020-11-12 09:47 | NUR ---
ADMINISTERED PRESCRIBED MEDS PER MD ORDER. PATIENT TOLERATED WELL. MEDICATION REINFORCEMENT NEEDED DUE TO LANGUAGE BARRIER. SAFETY MEASURES IN PLACE. WILL CONT TO MONITOR.
[2020-11-12 12:00] VITALS: BP 124/61
--- NOTE | 2020-11-12 12:06 | NUR ---
HOURLY ROUNDING PERFORMED ON PATIENT. PATIENT LAYING DOWN IN BED. DENIES PAIN. SPO2 93%. NO SIGNS OF DISTRESS. SAFETY MEASURES IN PLACE. WILL CONT TO MONITOR.
--- NOTE | 2020-11-12 15:48 | NUR ---
PATIENT RR 35, SPO2 86%, PATIENT USING ACCESSORY MUSCLES. STATES FEELS LIKE THE O2 IS LEAKING OUT OF MASK. CALLED RT TO ASSESS. ADMINISTERED PRN ATIVAN PER MD ORDER. SAFETY MEASURES IN PLACE. WILL CONT TO MONITOR.
[2020-11-12 16:00] VITALS: BP 107/56
[2020-11-12 20:00] VITALS: BP 108/57
--- NOTE | 2020-11-12 23:30 | NUR ---
MID SHIFT NOTE: PT'S FAMILY AT WINDOW. PT APPEARED UNCOMFORTABLE W MASK. PT VERBALIZED BEING HUNGRY. FAMILY ON PHONE CALLED TO EXPRESS CONCERN. EXPLAINED TO PT'S FAMILY EATING W/O MASK COULD CAUSE OXYGENATION PROBLEMS (O2 SAT AT THIS TIME WAS 87% AND RR 44). ENCOURAGED PT TO DRINK ENSURE (AT BEDSIDE) WHILE STILL WEARING MASK. PT AGREED AND DID SO (COMPLETED ONE CARTON). PT DID STILL HAVE TROUBLE WEARING MASK, SO KERLIX PADDING APPLIED TO SIDES BUT PT REMOVED THEM. PT THEN GIVEN ATIVAN PER EMAR. MEDICATION VERY EFFECTIVE IN TREATING PT'S ANXIETY. RR DOWN TO 32, O2 SAT = 91%, AND PT APPEARS TO BE SLEEPING COMFORTABLY. PT'S FAMILY CALLED AGAIN AND THIS NURSE TRIED TO EXPLAIN TO FAMILY THAT PT IS NOW MORE RELAXED, SLEEPING, WITH A HIGHER O2 SAT AND BREATHING THAT IS MORE CLOSE TO A NORMAL RATE
[2020-11-13 02:49] VITALS: BP 111/63
[2020-11-13] MEDS ORDERED: LORazepam 1 MG TAB ONE (06:24)
--- NOTE | 2020-11-13 07:30 | NUR ---
RECEIVED BEDSIDE ENDORSEMENT FROM NIGHTSMTFT NURSE FOR CONTINUITY OF CARE.
[2020-11-13 08:00] VITALS: BP 106/60
[2020-11-13] MEDS: DOCUSATE SODIUM 100 MG GELCAP PO SCH (10:10)
[2020-11-13] MEDS: DEXAMETHASONE 4 MG/ML VIAL IVP SCH (10:10)
[2020-11-13] MEDS: ENOXAPARIN 60 MG/0.6 ML SYR SUBQ SCH ×2 (10:13→19:59)
--- NOTE | 2020-11-13 10:28 | NUR ---
ADMINISTERED PRESCRIBED MEDS PER MD ORDER. PATIENT TOLERATED WELL. MEDICATION EDUCATION REINFORCEMENT NEEDED DUE TO LANGUAGE BARRIER. ASSISTED PATIENT TO PRONE POSITION PER MD RECOMMENDATION. PATIENT SPO2 95% AFTER PRONING. SAFETY MEASURES IN PLACE. WILL CONT TO MONITOR.
[2020-11-13 12:00] VITALS: BP 106/56
--- NOTE | 2020-11-13 12:16 | NUR ---
HOURLY ROUNDING PERFORMED. PATIENT FOUND SIDE LYING W/ HIGH FLOW NC OFF. SPO2 81%. PLACED PATIENT BACK TO PRONE POSITION, PLACED HI FLOW NC BACK ON UNDERNEATH NRB. PATIENT SPO2 NOW AT 90%. ADVSD IMPORTANCE OF O2 CANNULA AND PRONE POSITION. REINFORCEMENT NEEDED. SAFETY MEASURES IN PLACE. WILL CONT TO MONITOR.
--- NOTE | 2020-11-13 14:21 | NUR ---
HOURLY ROUNDING PERFORMED. PATIENT SIDE LYING, SPO2 87%. ASSISTED PATIENT W/ HYDRATION NEEDS. ASKED IF HE WANTED ANY FOOD, PATIENT REFUSED FOOD AND ENSURE, ONLY WANTED WATER. ENCOURAGED PATIENT TO TURN TO PRONE POSITION. RESPIRATIONS CONT TO BE LABORED, UNEVEN AND USE OF ACCESSORY MUSCLES. SAFETY MEASURES IN PLACE. WILL CONT TO MONITOR.
[2020-11-13 16:00] VITALS: BP 99/48
--- NOTE | 2020-11-13 17:34 | NUR ---
HOURLY ROUNDING PERFORMED. PATIENT SELF TURNED TO SEMI FOWLERS , SPO2 92%; RR 46. ENCOURAGED PATIENT TO TURN TO PRONE POSITION. RESPIRATIONS CONTINUE TO BE LABORED, UNEVEN AND USE OF ACCESSORY MUSCLES. SAFETY MEASURES IN PLACE. WILL CONT TO MONITOR.
--- NOTE | 2020-11-13 18:06 | NUR ---
PATIENT RAC IV LINE PULLED OUT. REMOVED AND DISCARDED.
--- NOTE | 2020-11-13 19:15 | NUR ---
RECEIVED REPORT FROM DAY JAKE WASSERMAN. PT AOX3 ON HIFLOW 30L AND 15L NRB, O2 SAT 92%. NO S/S RESPIRATORY DISTRESS. NO C/O PAIN AT THIS TIME. IV SITE LFA 18G, S.L. SAFETY MEASURES IN PLACE. CALL LIGHT WITHIN REACH. WILL CONTINUE TO MONITOR
--- NOTE | 2020-11-13 19:44 | NUR ---
ENDORSED PATIENT TO NIGHTSHIFT NURSE FOR CONTINUITY OF CARE.
[2020-11-13 20:00] VITALS: BP 105/66
[2020-11-13] MEDS: LORazepam 1 MG TAB PO PRN (20:00)
--- NOTE | 2020-11-13 20:00 | NUR ---
ADMINISTERED SCHEDULED MEDICATION, TOLERATED WELL. WILL CONTINUE TO MONITOR
--- NOTE | 2020-11-13 22:30 | NUR ---
PT ASLEEP IN BED. HIFLOW AND NRB IN PLACE, O2 SAT 91%, NO S/S ACUTE RESPIRATORY DISTRESS. WILL CONTINUE TO MONITOR
[2020-11-14] VITALS: BP 97/60
--- NOTE | 2020-11-14 01:35 | NUR ---
FOUND PT NRB MASK AND HIFLOW OFF, DESAT TO LOW 70S, PLACED NRB AND HIFLOW BACK ON. INSTRUCTED PT TO PRONE, PT INSISTED TO SIDE LYING POSITION, CALLED RT. PT O2 SAT SLOWLY CLIMBING TO 85%. EXPLAINED THE RISKS AND BENEFITS OF KEEPING THE MASK AND HIFLOW ON. PT NODDED. PT IS STABLE. WILL CONTINUE TO MONITOR
--- NOTE | 2020-11-14 03:21 | NUR ---
PT RESTING IN BED. O2 SAT 86%, NRB AND HIFLOW IN PLACE. NO S/S ACUTE DISTRESS NOTED. WILL CONTINUE TO MONITOR
[2020-11-14 04:00] VITALS: BP 98/60
--- NOTE | 2020-11-14 05:00 | NUR ---
PT ASLEEP IN BED. NRB AND HIFLOW IN PLACE, O2 SAT 91%, NO S/S ACUTE DISTRESS NOTED. WILL CONTINUE TO MONITOR
--- NOTE | 2020-11-14 07:35 | NUR ---
ENDORSED PT TO DAY RN FOR CONTINUITY OF CARE. PT IS IN STABLE CONDITION
--- NOTE | 2020-11-14 07:36 | NUR ---
RECEIVED ENDORSEMENT FROM CARTON COUNTER FEEDER, AWAKE, ALERT, ORIENTEDX4, ON HIGH FLOW METER 100%, FLOW RATE-35L/MIN, L7VLH-73-99%, TACHYPNIEC-38 BPM, SLIGHT LABORED BREATHING NOTED. WITH IV CANNULA G18 AT LEFT FOREARM NOTED. SAFETY MEASURES IN PLACE AND CONTINUE MONITOR.
[2020-11-14 08:00] VITALS: BP 119/73
[2020-11-14] MEDS: DOCUSATE SODIUM 100 MG GELCAP PO SCH (08:58)
[2020-11-14] MEDS: DEXAMETHASONE 4 MG/ML VIAL IVP SCH (08:59)
[2020-11-14] MEDS: ENOXAPARIN 60 MG/0.6 ML SYR SUBQ SCH ×2 (09:03→21:00)
[2020-11-14] MEDS ORDERED: DEXTROSE 50% 50 ML SYR IVP PRN (09:25)
--- NOTE | 2020-11-14 09:35 | NUR ---
FULLY AWAKE AND ALERT, P0IIO-22%, DUE MEDICATION GIVEN
--- NOTE | 2020-11-14 10:27 | NUR ---
PT PLACED ON BIPAP DUE TO SOB AND REQUEST OF . SETTINGS 16/8, R12 AND FIO2 100% PT RECEIVING ADEQUATE VT. BIPAP ALARMS ON AND FUNCTIONING. WILL CONTINUE TO MONITOR.
--- NOTE | 2020-11-14 10:28 | NUR ---
RT AT BEDSIDE, PATIENT PLACE ON BIPAP 03/06, RATE-20, FIO2-100% ORDERED BY DR. BALLESTEROS PULMERT.
--- NOTE | 2020-11-14 10:55 | NUR ---
BIPAP SETTINGS CHANGED TO 18/10. PATIENT WITH INCREASED WORK OF BREATHING AND SPO2 BETWEEN. 78% -80%. SATURATIONS IMPROVED AFTER CHANGES.
[2020-11-14] MEDS: BLOOD GLUCOSE MONITORING 1 DEV DEV FS SCH ×3 (11:34→21:00)
--- NOTE | 2020-11-14 11:35 | NUR ---
GLUCOSE-128, NO INSULIN COVERAGE, APPARENTLY 02SAT-85%, COMPLAINING OF SOB, RT CONTACTED AND MADE AWARE. CONTINUE MONITOR
[2020-11-14 12:00] VITALS: BP 115/64
--- NOTE | 2020-11-14 13:23 | NUR ---
PATIENTS SON CALLED AND UPDATE PATIENT STATUS
--- NOTE | 2020-11-14 14:41 | NUR ---
ASLEEP, STILL ON BIPAP, D2PWI-86%
[2020-11-14 16:00] VITALS: BP 122/77
[2020-11-14] MEDS: INSULIN LISPRO SLIDING SCALE 100 UNITS/ML VIAL SUBQ PRN ×2 (16:25→22:06)
--- NOTE | 2020-11-14 16:31 | NUR ---
STILL ON BIPAP-/, O2 SAT-91%, AFTERNOON CARE DONE, GLUCOSE-200, HUMALOG 2UNITS SUBQ PER SLIDING SCALE GIVEN
--- NOTE | 2020-11-14 17:24 | NUR ---
11/14/20 RD INITIAL ASSESSMENT COMPLETED PLEASE REFER TO NUTRITION ASSESSMENT UNDER CARE ACTIVITY FOR ESTIMATED NUTRITIONAL NEEDS. 1. CONSIDER TPN PER PHARMACY ORDER D/T DIFFICULTY EATING WITH BIPAP 2. PT CURRENTLY ON CCHO 60GM WITH GLUCERNA TID 3. RECOMMEND GROUND CCHO 4. RD TO FOLLOW-UP 3-5 DAYS, MODERATE RISK JOSE LUIS DOS SANTOS RD
--- NOTE | 2020-11-14 18:10 | NUR ---
ASSISTED TO DRINK GLUCERNA, CONSUMED 1/2 NOTED
--- NOTE | 2020-11-14 19:30 | NUR ---
RECEIVED PATIENT FROM AM SHIFT NURSE FOR CONTINUITY OF CARE. ABLE TO MAKE NEEDS KNOWN. RESPIRATIONS EVEN AND UNLABORED. CONTINUES ON BIPAP 100%. NO S/S RESPIRATORY DISTRESS. NO C/O PAIN. NO S/S ACUTE DISTRESS. SKIN WARM, DRY. SALINE LOCK TO LEFT FOREARM 18G PATENT/INTACT. ABDOMEN SOFT, NONTENDER, NONDISTENDED. BOWEL SOUNDS ACTIVE X4 QUADRANTS. PATIENT CONTINENT OF B/B. PLAN OF CARE DISCUSSED. ISOLATION PRECAUTIONS OBSERVED. SAFETY PRECAUTIONS IN PLACE. CALL LIGHT WITHIN REACH.
--- NOTE | 2020-11-14 19:30 | NUR ---
ENDORSED TO DIALS SUPERVISOR FOR CONTINUITY OF CARE, STILL ON BIPAP, 02SAT-95% NOTED
[2020-11-14 20:00] VITALS: BP 139/80
--- NOTE | 2020-11-14 21:00 | NUR ---
DUE MEDS GIVEN. PATIENT CONTINUES TO BE COMPLIANT ON BIPAP. NO S/S ACUTE DISTRESS. ISOLATION PRECAUTIONS OBSERVED. CALL LIGHT WITHIN REACH.
--- NOTE | 2020-11-14 23:00 | NUR ---
ENCOURAGED PO INTAKE. PATIENT IS DRINKING GLUCERNA SHAKE AT THIS TIME. NO S/S ACUTE DISTRESS. ISOLATION PRECAUTIONS OBSERVED. CALL LIGHT WITHIN REACH.
[2020-11-15] VITALS: BP 158/89
--- NOTE | 2020-11-15 01:00 | NUR ---
MADE ROUNDS. PATIENT IS ASLEEP. NO S/S ACUTE DISTRESS. ISOLATION PRECAUTIONS OBSERVED. CALL LIGHT WITHIN REACH.
--- NOTE | 2020-11-15 03:00 | NUR ---
PATIENT IS AWAKE AND DRINKING SHAKE AT THIS TIME. NO S/S ACUTE DISTRESS. ISOLATION PRECAUTIONS OBSERVED. CALL LIGHT WITHIN REACH.
[2020-11-15 04:00] VITALS: BP 112/61
--- NOTE | 2020-11-15 05:00 | NUR ---
ALL NEEDS ANTICIPATED AND MET. NO S/S ACUTE DISTRESS. ISOLATION PRECAUTIONS OBSERVED. CALL LIGHT WITHIN REACH.
[2020-11-15] MEDS: BLOOD GLUCOSE MONITORING 1 DEV DEV FS SCH ×4 (06:36→21:38)
--- NOTE | 2020-11-15 07:31 | NUR ---
ENDORSED PATIENT TO AM SHIFT NURSE FOR CONTINUITY OF CARE.
--- NOTE | 2020-11-15 07:32 | NUR ---
RECEIVED ENDORSEMENT FROM CNA LTC, AWAKE,ALERT, ORIENTEDX4, ON BIPAP SETTING 06/07, [id number]%, O9UCI-07%. NOT IN DISTRESS NOTED. WITH IV CANNULA G18 AT LEFT FOREARM NOTED ON SALINE LOCK. SAFETY MEASURES IN PLACE AND CONTINUE MONITOR
[2020-11-15 07:43] LABS: EOSINOPHILS % (AUTO) 0.1 % (0.0-4.0); HEMATOCRIT 45.8 % (36-52); HEMOGLOBIN 15.1 g/dL (12.0-18.0); LYMPHOCYTES # (AUTO) 0.9 K/uL (2.0-11.5); LYMPHOCYTES % (AUTO) 3.8 % (20.5-51.1); MEAN CORPUSCULAR HEMOGLOBIN 31 pg (27-31); MEAN CORPUSCULAR HGB CONC 33 g/dL (33-37); MEAN CORPUSCULAR VOLUME 92.4 fL (80-94); MONOCYTES # (AUTO) 1.1 K/uL (0.8-1.0); MONOCYTES % (AUTO) 4.9 % (1.7-9.3); NEUTROPHILS # (AUTO) 20.8 K/uL (1.8-7.7); NEUTROPHILS % (AUTO) 91.2 % (42.2-75.2); PLATELET COUNT (AUTO) 271 K/uL (140-450); RED BLOOD CELL COUNT(AUTO) 4.95 MIL/uL (4.20-6.10); WHITE BLOOD COUNT (AUTO) 22.7 K/uL (4.8-10.8)
[2020-11-15 08:00] VITALS: BP 113/64
[2020-11-15] MEDS: DOCUSATE SODIUM 100 MG GELCAP PO SCH (09:09)
[2020-11-15] MEDS: ENOXAPARIN 60 MG/0.6 ML SYR SUBQ SCH ×2 (09:10→21:34)
--- NOTE | 2020-11-15 09:27 | NUR ---
FULLY AWAKE AND ALERT, MORNING CARE DONE, PLACE ON HIGH BACK REST POSITION, GLUCERNA OFFERED AND SIPS 50ML, DUE MEDICATION GIVEN
--- NOTE | 2020-11-15 10:24 | NUR ---
DR. VERONICA, ATTENDING PHYSICIAN MADE ROUNDS. SHAHEEN CONTACTED BY DR. VERONICA AND UPDATE PATIENT STATUS
--- NOTE | 2020-11-15 11:28 | NUR ---
GLUCOSE-122, NO INSULIN COVERAGE, GLUCERNA GIVEN, O2 SAT-91% ON BIPAP, CONTINUE MONITOR
[2020-11-15 12:00] VITALS: BP 129/60
--- NOTE | 2020-11-15 13:28 | NUR ---
GLUCERNA OFFERED, ABLE TO DRINK 100ML, TOLERATED WELL, MILD SOB NOTED
--- NOTE | 2020-11-15 15:23 | NUR ---
DR. SLOAN PULMO MADE ROUNDS AND UPDATE PATIENT STATUS
[2020-11-15 16:00] VITALS: BP 92/63
[2020-11-15] MEDS: INSULIN LISPRO SLIDING SCALE 100 UNITS/ML VIAL SUBQ PRN (17:19)
--- NOTE | 2020-11-15 17:26 | NUR ---
APPARENTLY ASLEEP, STILL ON BIPAP SETTING 06/08, FIO2-90%, R0RAI-40%, NOT IN DISTRESS NOTED
--- NOTE | 2020-11-15 18:10 | NUR ---
FULLY AWAKE AND ALERT, STILL ON BIPAP, NOT IN DISTRESS, N8FDA-38% NOTED
--- NOTE | 2020-11-15 19:29 | NUR ---
ENDORSED TO NUTRITION INTERNSHIP FOR CONTINUITY OF CARE, STILL ON BIPAP, W3XWK-47%, NOT IN DISTRESS NOTED
--- NOTE | 2020-11-15 19:30 | NUR ---
RECEIVED BEDSIDE ENDORSEMENT FROM AM SHIFT RN, PT IS AOX4, ON BIPAP, O2 SAT AT 94%, NO DISTRESS, SAFETY MEASURES IN PLACE, PLAN OF CARE DISCUSSED, CALL LIGHT WITHIN REACH.
[2020-11-15 20:00] VITALS: BP 126/66
--- NOTE | 2020-11-15 21:42 | NUR ---
DUE MEDS GIVEN ORDERED, TOLERATED WELL, O2 SAT 93%-95%, CALL LIGHT WITHIN REACH.
--- NOTE | 2020-11-15 23:30 | NUR ---
CHECKED PT, O2 SAT 96%, KEPT COMFORTABLE, CALL LIGHT WITHIN REACH.
[2020-11-16] VITALS: BP 103/65
--- NOTE | 2020-11-16 01:50 | NUR ---
PT IS NOT IN DISTRESS, O2 SAT AT 93%, WILL CONTINUE TO MONITOR, CALL LIGHT WITHIN REACH.
--- NOTE | 2020-11-16 03:02 | NUR ---
ASLEEP, O2 SAT 99% ON BIPAP, CALL LIGHT WITHIN REACH.
[2020-11-16 04:00] VITALS: BP 114/63
[2020-11-16] MEDS: BLOOD GLUCOSE MONITORING 1 DEV DEV FS SCH ×4 (06:13→20:03)
--- NOTE | 2020-11-16 06:16 | NUR ---
BLOOD SUGAR 118, NO INSULIN COVERAGE NEEDED, KEPT WARM AND COMFORTABLE, NO DISTRESS, ALL NEEDS ATTENDED, CALL LIGHT WITHIN REACH.
[2020-11-16 06:52] LABS: ALBUMIN 1.9 g/dL (3.4-5.0); ANION GAP 13.6 (8-16); CARBON DIOXIDE 24.7 mmol/L (21-32); CREATININE 0.6 mg/dL (0.6-1.3); POTASSIUM 4.3 mmol/L (3.5-5.1)
[2020-11-16 07:05] LABS: BASOPHILS # (AUTO) 0.1 K/uL (0.00-0.22); BASOPHILS % (AUTO) 0.5 % (0.0-2.0); EOSINOPHILS # (AUTO) 0.1 K/uL (0-0.4); EOSINOPHILS % (AUTO) 0.3 % (0.0-4.0); HEMATOCRIT 48.5 % (36-52); LYMPHOCYTES # (AUTO) 0.7 K/uL (2.0-11.5); LYMPHOCYTES % (AUTO) 3.1 % (20.5-51.1); MEAN CORPUSCULAR HEMOGLOBIN 31 pg (27-31); MEAN CORPUSCULAR HGB CONC 33 g/dL (33-37); MEAN CORPUSCULAR VOLUME 92.7 fL (80-94); MONOCYTES # (AUTO) 0.7 K/uL (0.8-1.0); MONOCYTES % (AUTO) 3.1 % (1.7-9.3); NEUTROPHILS # (AUTO) 20.7 K/uL (1.8-7.7); PLATELET COUNT (AUTO) 214 K/uL (140-450); RED BLOOD CELL COUNT(AUTO) 5.23 MIL/uL (4.20-6.10); RED CELL DISTRIBUTION WIDTH 13.9 % (11.6-13.7); WHITE BLOOD COUNT (AUTO) 22.2 K/uL (4.8-10.8)
--- NOTE | 2020-11-16 07:45 | NUR ---
PT STABLE, NO DISTRESS, BEDSIDE ENDORSEMENT GIVEN TO AM SHIFT RN FOR CONTINUITY OF CARE.
[2020-11-16 08:00] VITALS: BP 109/67
[2020-11-16] MEDS: ENOXAPARIN 60 MG/0.6 ML SYR SUBQ SCH ×2 (09:31→20:05)
[2020-11-16] MEDS: DOCUSATE SODIUM 100 MG GELCAP PO SCH (09:32)
--- NOTE | 2020-11-16 09:43 | NUR ---
ADMINISTERED PRESCRIBED MEDS PER MD ORDER. PATIENT TOLERATED WELL. MEDICATION EDUCATION REINFORCEMENT NEEDED DUE TO LANGUAGE BARRIER. SAFETY MEASURES IN PLACE. WILL CONT TO MONITOR.
[2020-11-16 12:00] VITALS: BP 112/66
[2020-11-16 16:00] VITALS: BP 89/55
--- NOTE | 2020-11-16 16:53 | NUR ---
11/16/20 RD INITIAL ASSESSMENT COMPLETED PLEASE REFER TO NUTRITION ASSESSMENT UNDER CARE ACTIVITY FOR ESTIMATED NUTRITIONAL NEEDS. 1. CONSIDER TPN PER PHARMACY ORDER D/T DIFFICULTY EATING WITH BIPAP 2. PT CURRENTLY ON GROUND CCHO 60GM WITH GLUCERNA TID 3. RD TO FOLLOW-UP 3-5 DAYS, MODERATE RISK JOSE LUIS DOS SANTOS RD
--- NOTE | 2020-11-16 17:14 | NUR ---
BG CHECK COMPLETED ON PATIENT. NO INSULIN COVERAGE NEEDED. PATIENT IS RESTING IN BED. SPO2 97%. NO SIGNS OF DISCOMFORT OR DISTRESS. SAFETY MEASURES IN PLACE. WILL CONT TO MONITOR.
--- NOTE | 2020-11-16 19:10 | NUR ---
RECEIVED BEDSIDE REPORT FROM DAY SHIFT NURSE FOR CONTINUITY OF CARE. PT IS AWAKE AND ALERT, A&OX4. ROMANIAN SPEAKING. ON BIPAP 75% FIO2 WITH BREATHING UNLABORED. PT APPEARS TO BE CALM AT THIS TIME. SR ON TELE MONITORING. SKIN IS WARM, DRY, AND INTACT. IV IS IN THE LEFT FOREARM 18 GAUGE SALINE LOCKED. COVID POSITIVE. DROPLET PRECAUTIONS AND FALL PRECAUTIONS IN PLACE. AWAITING BED AT [place] PER DAY SHIFT NURSE. PT IS STABLE. PLAN OF CARE DISCUSSED.
[2020-11-16 20:00] VITALS: BP 111/54
--- NOTE | 2020-11-16 21:30 | NUR ---
ROUNDED ON PT. HE IS SPEAKING APPROPRIATELY. NO SIGNS OF DISTRESS. PULSE OX CHANGED TO EARLOBE DUE TO COLD HANDS, POOR PERFUSION. O2 SAT IS AT 100% ON BIPAP FIO2 75%. RT AT BEDSIDE. RT TITRATED FIO2 TO 65%. O2 SAT IS NOW 98%. WILL CONTINUE TO MONITOR. PT IS STABLE AT THIS TIME.
--- NOTE | 2020-11-16 23:30 | NUR ---
PT IS ASLEEP. BIPAP IN PLACE WITH O2 SAT AT 99%. NO RESPIRATORY DISTRESS NOTED. NO COUGHING OR SOB. BELONGINGS WITHIN REACH AT BEDSIDE TABLE. BED IN LOWEST POSITION.
[2020-11-17] VITALS (8 sets, daily range): BP systolic 92–120; BP diastolic 60–70
--- NOTE | 2020-11-17 01:30 | NUR ---
PT IS SLEEPING IN HIGH FOWLERS POSITION. BIPAP IN PLACE WITH O2 SAT AT 99%. FIO2 IS AT 65%. RR IS 24. PT IS STABLE. WATER WITHIN REACH AND CALL LIGHT WITHIN REACH.
--- NOTE | 2020-11-17 03:30 | NUR ---
MADE ROUNDS ON PT. HE IS ASLEEP. NO RESPIRATORY DISTRESS NOTED. BIPAP IS AT 65% FIO2. O2 SAT IS 95%. CHEST RISE AND FALL IS SYMMETRICAL. WILL CONTINUE TO MONITOR.
--- NOTE | 2020-11-17 05:30 | NUR ---
PT IS AWAKE, RESTING COMFORTABLY. A&OX4. ON BIPAP. BREATHING UNLABORED. O2 SAT AT 98%. NO DISTRESS NOTED. PT IS STABLE.
[2020-11-17] MEDS: BLOOD GLUCOSE MONITORING 1 DEV DEV FS SCH ×4 (06:11→21:00)
--- NOTE | 2020-11-17 07:05 | NUR ---
ENDORSED PT TO DAY SHIFT NURSE FOR CONTINUITY OF CARE. PT IS STABLE AT THIS TIME. PLAN OF CARE DISCUSSED.
--- NOTE | 2020-11-17 07:05 | NUR ---
BIPAP FIO2 AT 50% AND O2 SAT AT 95%. BREATHING IS UNLABORED. NO RESPIRATORY DISTRESS NOTED.
--- NOTE | 2020-11-17 07:10 | NUR ---
RECEIVED BEDSIDE ENDORSEMENT FROM NIGHTSNMFT NURSE FOR CONTINUITY OF CARE.
[2020-11-17 07:26] LABS: BASOPHILS # (AUTO) 0.1 K/uL (0.00-0.22); BASOPHILS % (AUTO) 0.4 % (0.0-2.0); EOSINOPHILS # (AUTO) 0.2 K/uL (0-0.4); EOSINOPHILS % (AUTO) 1.2 % (0.0-4.0); HEMATOCRIT 46.6 % (36-52); HEMOGLOBIN 15.4 g/dL (12.0-18.0); LYMPHOCYTES # (AUTO) 0.9 K/uL (2.0-11.5); LYMPHOCYTES % (AUTO) 5.1 % (20.5-51.1); MEAN CORPUSCULAR HEMOGLOBIN 31 pg (27-31); MEAN CORPUSCULAR HGB CONC 33 g/dL (33-37); MEAN CORPUSCULAR VOLUME 92.7 fL (80-94); MONOCYTES # (AUTO) 0.6 K/uL (0.8-1.0); MONOCYTES % (AUTO) 3.6 % (1.7-9.3); NEUTROPHILS # (AUTO) 15.1 K/uL (1.8-7.7); NEUTROPHILS % (AUTO) 89.7 % (42.2-75.2); PLATELET COUNT (AUTO) 201 K/uL (140-450); RED BLOOD CELL COUNT(AUTO) 5.03 MIL/uL (4.20-6.10); RED CELL DISTRIBUTION WIDTH 13.8 % (11.6-13.7); WHITE BLOOD COUNT (AUTO) 16.8 K/uL (4.8-10.8)
[2020-11-17 07:52] LABS: ALBUMIN 1.7 g/dL (3.4-5.0); CARBON DIOXIDE 26.3 mmol/L (21-32); CREATININE 0.5 mg/dL (0.6-1.3); POTASSIUM 4.3 mmol/L (3.5-5.1)
[2020-11-17] MEDS: DOCUSATE SODIUM 100 MG GELCAP PO SCH (09:34)
[2020-11-17] MEDS: ENOXAPARIN 60 MG/0.6 ML SYR SUBQ SCH ×2 (09:35→23:13)
--- NOTE | 2020-11-17 09:45 | NUR ---
ADMINISTERED PRESCRIBED MEDS PER MD ORDER. PATIENT TOLERATED WELL. MEDICATION EDUCATION REINFORCEMENT NEEDED DUE TO LANGUAGE BARRIER. ASSISTED PATIENT W/ BREAKFAST TRAY. REFUSED FOOD, DRANK 1 GLUCERNA. SPO2 98% BIPAP FIO2 50%. SAFETY MEASURES IN PLACE. WILL CONT TO MONITOR.
--- NOTE | 2020-11-17 12:03 | NUR ---
BG CHECK PER MD ORDER, 122: NO INSULIN COVERAGE NEEDED. PATIENT LAYING IN BED, [place], SPO2 91%. NO SIGNS OF DISTRESS. RESPIRATIONS EVEN W/ SOME ACCESSORY MUSCLE USE. SAFETY MEASURES IN PLACE. WILL CONTINUE TO MONITOR.
--- NOTE | 2020-11-17 13:25 | NUR ---
HOURLY ROUNDING PERFORMED, PATIENT IS RESTING IN BED. NO SIGNS OF DISTRESS NOTED. SPO2 95%. SAFETY MEASURES IN PLACE. WILL CONT TO MONITOR.
--- NOTE | 2020-11-17 15:32 | NUR ---
HOURLY ROUNDING PERFORMED. PATIENT SLEEPING IN BED. RESPIRATIONS 36 BPM, SOME USE OF ACCESSORY MUSCLES. PATIENT DENIES PAIN. SAFETY MEASURES IN PLACE. WILL CONT TO MONITOR.
--- NOTE | 2020-11-17 17:21 | NUR ---
BG CHECK, 117 NO INSULIN COVERAGE NEEDED. PATIENT RESTING IN BED. EMPTIED 400 ML CAROLINE URINE FROM URINAL. PATIENT FAMILY AT WINDOW. SPO2 92%. SAFETY MEASURES IN PLACE. WILL CONT TO MONITOR.
--- NOTE | 2020-11-17 19:28 | NUR ---
GAVE BEDSIDE ENDORSEMENT TO NIGHTSHIFT NURSE FOR CONTINUITY OF CARE
[2020-11-18] VITALS (10 sets, daily range): BP systolic 99–145; BP diastolic 55–73
[2020-11-18 06:01] LABS: BASOPHILS # (AUTO) 0.1 K/uL (0.00-0.22); BASOPHILS % (AUTO) 0.4 % (0.0-2.0); EOSINOPHILS # (AUTO) 0.2 K/uL (0-0.4); EOSINOPHILS % (AUTO) 0.7 % (0.0-4.0); HEMATOCRIT 45.1 % (36-52); HEMOGLOBIN 14.8 g/dL (12.0-18.0); LYMPHOCYTES % (AUTO) 4.7 % (20.5-51.1); MEAN CORPUSCULAR HEMOGLOBIN 31 pg (27-31); MEAN CORPUSCULAR HGB CONC 33 g/dL (33-37); MEAN CORPUSCULAR VOLUME 93.1 fL (80-94); MONOCYTES # (AUTO) 0.7 K/uL (0.8-1.0); MONOCYTES % (AUTO) 3.5 % (1.7-9.3); NEUTROPHILS % (AUTO) 90.7 % (42.2-75.2); PLATELET COUNT (AUTO) 197 K/uL (140-450); RED BLOOD CELL COUNT(AUTO) 4.84 MIL/uL (4.20-6.10); RED CELL DISTRIBUTION WIDTH 13.8 % (11.6-13.7); WHITE BLOOD COUNT (AUTO) 20.9 K/uL (4.8-10.8)
[2020-11-18 06:28] LABS: ALBUMIN 1.7 g/dL (3.4-5.0); ANION GAP 12.7 (8-16); CARBON DIOXIDE 26.2 mmol/L (21-32); CREATININE 0.5 mg/dL (0.6-1.3); POTASSIUM 3.9 mmol/L (3.5-5.1)
[2020-11-18] MEDS: BLOOD GLUCOSE MONITORING 1 DEV DEV FS SCH ×4 (06:54→21:00)
--- NOTE | 2020-11-18 07:30 | NUR ---
RECEIVED BEDSIDE REPORT FROM KNITTING TEACHER NURSE FOR CONTINUITY OF CARE. PT IS AWAKE AND ALERT, A&OX4. TURKISH SPEAKING. ON BIPAP 35% FIO2 WITH BREATHING UNLABORED. PT APPEARS TO BE CALM AT THIS TIME. SR ON TELE MONITORING. SKIN IS WARM, DRY, AND INTACT. IV IS IN THE LEFT FOREARM 18 GAUGE SALINE LOCKED. PLAN OF CARE WAS DISCUSSED. DROPLET PRECAUTIONS IN PLACE. SAFETY PRECAUTIONS IN PLACE. AWAITING BED AT [place]. WILL CONTINUE TO MONITOR.
--- NOTE | 2020-11-18 09:25 | NUR ---
PT. WITH LOW LING SCALE AT RISK, CONTINUE TO FOLLOW PRESSURE INJURY PREVENTION INTERVENTIONS. -TURN AND REPOSITION PATIENT Q 2H -ASSESS AND MONITOR SKIN CONDITION DURING POSITION CHANGE -OFFLOAD BILATERAL HEELS BY PLACING PILLOWS UNDER CALVES AT ALL TIMES, UNLESS OTHERWISE CONTRAINDICATED -PRESSURE REDISTRIBUTION BY PLACING PILLOWS AND OFFLOADING SACRALCOCCYX -KEEP SKIN CLEAN AND DRY AT ALL TIMES.
--- NOTE | 2020-11-18 11:00 | NUR ---
ALL SCHEDULED MEDS GIVEN. PATIENT IS STABLE. NO DISTRESS NOTED. WILL CONTINUE TO MONITOR.
[2020-11-18] MEDS: DOCUSATE SODIUM 100 MG GELCAP PO SCH (11:02)
[2020-11-18] MEDS: ENOXAPARIN 60 MG/0.6 ML SYR SUBQ SCH ×2 (11:04→20:12)
[2020-11-18] MEDS: INSULIN LISPRO SLIDING SCALE 100 UNITS/ML VIAL SUBQ PRN ×2 (12:14→17:30)
--- NOTE | 2020-11-18 12:20 | NUR ---
PT DOING GOOD IN BIPAP. PT WAS PLACED ON VAPOTHERM 40L 100% TO TRY AND WEAN OFF OXYGEN. PT DID VERY WELL FOR AN HOUR. THEN PT STATED THAT WANTED TO BE PLACED BACK ON BIPAP. PT VITAL SIGNS REMAINED STABLE DURING VAPOTHERM TIME WHICH ENDED AT 1310 WITH HR OF 80 AND OXYGEN SATURATION OF 91%+. PT IS STABLE AND REMAINS NOW IN BIPAP.
--- NOTE | 2020-11-18 12:22 | NUR ---
PATIENT IS NOW ON HI FLOW 40%.PATIENT O2 SATURATION IS AT 96%. NO DISTRESS NOTED. WILL CONTINUE TO MONITOR.
--- NOTE | 2020-11-18 13:25 | NUR ---
PATIENT BACK ON BIPAP 75%. PATIENT IS STABLE. NO DISTRESS NOTED AT THIS MOMENT. WILL CONTINUE TO MONITOR.
[2020-11-18] MEDS ORDERED: LORazepam 2 MG/ML VIAL ONE (13:35)
--- NOTE | 2020-11-18 13:43 | NUR ---
PATIENT SHOWED SIGNS OF RESPIRATORY DISTRESS. MD REQUESTED ATIVAN TO BE ADMINISTERED STAT. PT IS NOW STABLE AND O2 SATURATION AT 96%
--- NOTE | 2020-11-18 14:45 | NUR ---
PATIENT IS ORDERED TO BE TRANSFERRED TO ICU. GAVE PATIENT REPORT TO ICU NURSE VIA TELEPHONE.
--- NOTE | 2020-11-18 14:50 | NUR ---
PATIENT TRANSFERRED TO ICU-06.
--- NOTE | 2020-11-18 14:50 | NUR ---
RECEIVED PT FROM CHECKER [employer] JOHN. PT IS AGITATED AT THIS TIME, NOT RESPONDING TO QUESTIONS. PT IS ON BIPAP FIO2 75% AT THIS TIME. RESPIRATIONS ARE DEEP AND LABORED. PT IS SATTING 95%. [facility]. AT THIS TIME PT IS ST ON THE MONITOR. TEMPERATURE WAS 97.5 TEMPORALLY. PT HAS LFA 18 G THAT IS SALINE LOCKED. PT HAD BOWEL MOVEMENT, WAS CLEANED AND SHEETS CHANGED. WILL CONTINUE TO MONITOR.
[2020-11-18] MEDS ORDERED: TPN PER PHARMACY MC PRN (15:45)
--- NOTE | 2020-11-18 16:00 | NUR ---
PT REQUESTED BED BOUCHER, HAD BOWEL MOVEMENT AND URINATED WELL. PT CLEANED AND SHEETS CHANGED
[2020-11-18] MEDS: DEXTROSE 10% 1,000 ML IV SCH (16:45)
--- NOTE | 2020-11-18 16:45 | NUR ---
BS 162, 2 UNITS INSULIN ADMINISTERED.
--- NOTE | 2020-11-18 19:25 | NUR ---
HANDOFF GIVEN TO ENGINE LATHE OPERATOR RN FOR CONTINUITY OF CARE
[2020-11-18 19:44] LABS: PROTHROMBIN TIME 11.4 secs (10.8-13.4)
[2020-11-18] MEDS: LORazepam 1 MG TAB PO PRN (20:13)
[2020-11-19] VITALS (29 sets, daily range): BP systolic 80–170; BP diastolic 46–87
[2020-11-19] MEDS: LORazepam 1 MG TAB PO PRN (04:44)
[2020-11-19 06:24] LABS: ALBUMIN 1.6 g/dL (3.4-5.0); ANION GAP 8.8 (8-16); CREATININE 0.5 mg/dL (0.6-1.3); POTASSIUM 3.8 mmol/L (3.5-5.1)
[2020-11-19 06:25] LABS: BASOPHILS % (AUTO) 0.1 % (0.0-2.0); CHOL/HDL RATIO 4.8 (1-4.5); EOSINOPHILS # (AUTO) 0.4 K/uL (0-0.4); EOSINOPHILS % (AUTO) 1.9 % (0.0-4.0); HEMATOCRIT 42.4 % (36-52); HEMOGLOBIN 14.3 g/dL (12.0-18.0); LYMPHOCYTES # (AUTO) 0.9 K/uL (2.0-11.5); LYMPHOCYTES % (AUTO) 4.3 % (20.5-51.1); MAGNESIUM 2.1 mg/dL (1.8-2.4); MEAN CORPUSCULAR HEMOGLOBIN 31 pg (27-31); MEAN CORPUSCULAR HGB CONC 34 g/dL (33-37); MONOCYTES # (AUTO) 0.6 K/uL (0.8-1.0); MONOCYTES % (AUTO) 2.5 % (1.7-9.3); NEUTROPHILS # (AUTO) 20.4 K/uL (1.8-7.7); NEUTROPHILS % (AUTO) 91.2 % (42.2-75.2); PHOSPHORUS 2.7 mg/dL (2.5-4.9); PLATELET COUNT (AUTO) 181 K/uL (140-450); RED BLOOD CELL COUNT(AUTO) 4.61 MIL/uL (4.20-6.10); RED CELL DISTRIBUTION WIDTH 13.9 % (11.6-13.7); WHITE BLOOD COUNT (AUTO) 22.3 K/uL (4.8-10.8)
[2020-11-19] MEDS: BLOOD GLUCOSE MONITORING 1 DEV DEV FS SCH (06:34)
[2020-11-19] MEDS: INSULIN LISPRO SLIDING SCALE 100 UNITS/ML VIAL SUBQ PRN ×3 (06:35→23:14)
--- NOTE | 2020-11-19 07:19 | NUR ---
RECEIVED WINDOW-SIDE REPORT FROM KEYBOARD SPECIALIST NURSE. PATIENT IN BED, SUPINE, HOB 30 DEGREES. ON BIPAP, 80% FIO2, TACHYPNEIC, LABORED BREATHING. PATIENT IN ENHANCED DROPLET PRECAUTIONS FOR COVID-19. NPO EXCEPT MEDS, URINAL BY BED. RFA 18G, RYNE PICC, CLEAN DRY INTACT. INFUSING: D10 @ 40 ML/HR. BED IN LOW POSITION, SAFETY MEASURES IN PLACE. CLEAN UP PERSON IN PLACE. NO SIGNS OF ACUTE DISTRESS NOTED.
--- NOTE | 2020-11-19 07:19 | NUR ---
ENDORSED TO DAY SHIFT RN FOR CONTINUITY OF CARE
[2020-11-19] MEDS: DOCUSATE SODIUM 100 MG GELCAP PO SCH (08:37)
[2020-11-19] MEDS: ENOXAPARIN 60 MG/0.6 ML SYR SUBQ SCH ×2 (08:43→20:35)
[2020-11-19] MEDS: LORazepam 2 MG/ML VIAL IVP PRN ×2 (08:50→12:46)
--- NOTE | 2020-11-19 08:50 | NUR ---
ADMINISTERED MEDS PER MD ORDER. 1MG ATIVAN IVP ADMINISTERED PER PATIENT COMPLAINT OF ANXIETY, TACHYPNEIC. MED EDUCATION PROVIDED, PATIENT VERBALIZES UNDERSTANDING. MORNING HYGIENE PROVIDED, ORAL CARE, HCG BATH, CHANGED ALL DIRTY LINEN. PATIENT REPOSITIONED AND OFFLOADED PRESSURE WITH PILLOWS. JACQUARD LACE WEAVER IN PLACE SAFETY MEASURES IN PLACE.
--- NOTE | 2020-11-19 09:20 | NUR ---
SPOKE WITH PATIENT DAUGHTER, TISHA MALIK VIA PHONE. SHE WAS UPDATED ON PATIENT STATUS. ANSWERED ALL QUESTIONS. MRS MALIK VERBALIZES UNDERSTANDING.
[2020-11-19] MEDS ORDERED: fentaNYL citrate 1 MG in NACL 0.9% 80 ML IV PRN (10:45)
[2020-11-19] MEDS ORDERED: SUCCINYLCHOLINE CHLORIDE 200 MG/10 ML VIAL IVP SCH (11:00)
[2020-11-19] MEDS ORDERED: ETOMIDATE 20 MG/10 ML VIAL IVP SCH (11:00)
--- NOTE | 2020-11-19 11:20 | NUR ---
INTUBATED WITH DR OSORIO AND RT ASSISTANCE. PATIENT STARTED ON PROPOFOL. URINARY CATHETER AND NG TUBE INSERTED AT THIS TIME. PENDING XRAY FOR PLACEMENT OF NG TUBE AND INTUBATION. XRAY ORDERED. ACTIVITY TOLERATED WELL, NO SIGNS OF ACUTE DISTRESS NOTED. SPO2 100%, RR 25.
[2020-11-19] MEDS: PROPOFOL 1000 MG/100 ML PREMIX 100 ML IV PRN ×2 (11:30→14:18)
[2020-11-19] MEDS: NOREPINEPHRINE 4 MG in DEXTROSE 5% 250 ML IV PRN (12:56)
--- NOTE | 2020-11-19 12:56 | NUR ---
BLOOD PRESSURE DROP TO 80/47, LEVOPHED STARTED PER MD ORDERS. WILL CONTINUE TO MONITOR CLOSELY.
--- NOTE | 2020-11-19 15:23 | NUR ---
11/19/20 RD FOLLOW UP COMPLETED PLEASE REFER TO NUTRITION PROGRESS NOTE UNDER CARE ACTIVITY FOR ESTIMATED NUTRITION NEEDS. RD RECOMMENDATIONS: 1. CONSIDER RE-EVALUATING THE NEED FOR PARENTERAL NUTRITION PER MD. 2. WHEN MEDICALLY APPROPRIATE, RECOMMEND GLUCERNA 1.2 AT GOAL RATE OF 55 ML/HR X 24 HRS. START AT 25 ML/HR AND INCREASE TOLERATED TO GOAL RATE. -THIS WILL PROVIDE 1320 ML TOTAL VOLUME, 1584 KCAL, AND 79 GM OF PROTEIN, WHICH IS ADEQUATE TO MEET 100% OF ESTIMATED NUTRITION NEEDS. 3. RECOMMEND 200 ML FREE WATER FLUSH Q8H. 4. IF PT WILL NEED TO BE IN PRONE POSITION, RECOMMEND GLUCERNA 1.2 AT 100 ML/HR X 8 HRS WITH PROSOURCE TID. 5. RD TO FOLLOW-UP 2-3 DAYS, HIGH RISK BOB CEDEÑO, RD
[2020-11-19] MEDS: DEXTROSE 10% 1,000 ML IV SCH (16:11)
--- NOTE | 2020-11-19 17:11 | NUR ---
SPOKE WITH PATIENT DAUGHTER, TISHA MALIK IN REGARDS TO PATIENT CONDITION. SHE VERBALIZES UNDERSTANDING OF PATIENT CONDITION AND ALL HER QUESTIONS WERE ANSWERED. MESSENGER FAMILY CALL ARRANGED FOR HER, MESSENGER CALL IN PATIENT ROOM ACTIVE AT THIS TIME.
--- NOTE | 2020-11-19 19:14 | NUR ---
ENDORSED PATIENT TO DEPUTY CONTROLLER NURSE FOR CONTINUITY OF CARE. PATIENT STABLE AT THIS TIME.
--- NOTE | 2020-11-19 19:15 | NUR ---
ASSUMED CARE OF PT.INITIAL ASSESSMENT COMPLETED.PT SEDATED.ORALLY INTUBATED FIO1 95% RATE 20 PC 26 PEEP 10; ORAL SECRETIONS SUCTIONED.MODERATE TO LARGE AMT OF WHITISH SECRETIONS.W/RYNE PICC LINE INTACT.GOOD BLOOD RETURN.INFUSING D10 AT 40ML/HR; LEVOPHED 4MG IN 250ML D5W AT 2MCG/MIN AND PROPOFOL DRIP 30MCG/KG/MIN PTS DRY WT 47.6KG.W/OGT INTACT.CLAMPED.PT NPO EXCEPT MEDS, WITH ORDER TO START TPN AT 1999.W/FRANCO CATHETER TO BSD DRAINING SMALL AMT OF YELLOW URINE.FLACC 0.W/PRESSURE ULCER TO NOSE FROM ADMINISTRATIVE NURSING SUPERVISOR; PT ON BIPAP PRIOR TO INTUBATION.REPOSITIONED.
[2020-11-19] MEDS: BLOOD GLUCOSE MONITORING 1 DEV DEV MC SCH ×2 (20:00→23:14)
--- NOTE | 2020-11-19 20:05 | NUR ---
ORAL CARE USING VAP KIT RENDERED.TPN STARTED ORDERED.D10 DC'D.
[2020-11-19] MEDS: DEXTROSE IV SCH ×4 (20:33)
[2020-11-19] MEDS: [UNRECOGNIZED DRUG - OTHER] IV SCH ×4 (20:33)
[2020-11-19] MEDS: AMINO ACIDS IV SCH ×4 (20:33)
[2020-11-19] MEDS: MULTIVITAMIN IV SCH ×4 (20:33)
--- NOTE | 2020-11-19 22:00 | NUR ---
PHONE CALL FROM FAMILY.FACE TIME DONE, PT GETTING AGITATED.EXPLAINED TO FAMILY TO CALL LATER, PT AGITATED.
--- NOTE | 2020-11-19 23:00 | NUR ---
BP 85/57; LEVOPHED DRIP RESTARTED AT 2 MCG/MIN.WILL CONTINUE TO CLOSELY MONITOR PT
[2020-11-20] VITALS (29 sets, daily range): BP systolic 87–134; BP diastolic 4–74
--- NOTE | 2020-11-20 | NUR ---
ORAL CARE USING VAP KIT RENDERED.STILL ON ETT TO VENT FIO2 95%.REPOSITIONED.FLACC 0
[2020-11-20] MEDS: PROPOFOL 1000 MG/100 ML PREMIX 100 ML IV PRN (01:07)
--- NOTE | 2020-11-20 04:00 | NUR ---
AFEBRILE.PTS CONDITION REMAINS UNCHANGED.FLACC 0.REPOSITIONED
[2020-11-20] MEDS: BLOOD GLUCOSE MONITORING 1 DEV DEV MC SCH ×3 (05:48→18:10)
[2020-11-20] MEDS: INSULIN LISPRO SLIDING SCALE 100 UNITS/ML VIAL SUBQ PRN (05:49)
--- NOTE | 2020-11-20 06:10 | NUR ---
MORNING CARE DONE.REPOSITIONED.FLACC 0
[2020-11-20 06:22] LABS: BASOPHILS # (AUTO) 0.2 K/uL (0.00-0.22); BASOPHILS % (AUTO) 0.5 % (0.0-2.0); EOSINOPHILS # (AUTO) 0.3 K/uL (0-0.4); EOSINOPHILS % (AUTO) 1.2 % (0.0-4.0); HEMATOCRIT 38.6 % (36-52); HEMOGLOBIN 12.6 g/dL (12.0-18.0); LYMPHOCYTES # (AUTO) 1.1 K/uL (2.0-11.5); MEAN CORPUSCULAR HEMOGLOBIN 30 pg (27-31); MEAN CORPUSCULAR HGB CONC 33 g/dL (33-37); MEAN CORPUSCULAR VOLUME 93.5 fL (80-94); MONOCYTES # (AUTO) 0.6 K/uL (0.8-1.0); MONOCYTES % (AUTO) 2.1 % (1.7-9.3); PLATELET COUNT (AUTO) 157 K/uL (140-450); RED BLOOD CELL COUNT(AUTO) 4.13 MIL/uL (4.20-6.10); RED CELL DISTRIBUTION WIDTH 14.3 % (11.6-13.7)
[2020-11-20 06:25] LABS: WHITE BLOOD COUNT (AUTO) 28.2 K/uL (4.8-10.8)
[2020-11-20 06:49] LABS: ALBUMIN 1.3 g/dL (3.4-5.0); ANION GAP 8.9 (8-16); CARBON DIOXIDE 27.7 mmol/L (21-32); CREATININE 0.5 mg/dL (0.6-1.3); POTASSIUM 3.6 mmol/L (3.5-5.1); TOTAL BILIRUBIN 0.7 mg/dL (0.0-1.0)
[2020-11-20 07:10] LABS: MAGNESIUM 1.9 mg/dL (1.8-2.4); PHOSPHORUS 2.4 mg/dL (2.5-4.9)
[2020-11-20 07:16] LABS: LYMPHOCYTES % (AUTO) 3.8 % (20.5-51.1); NEUTROPHILS % (AUTO) 92.4 % (42.2-75.2)
--- NOTE | 2020-11-20 07:20 | NUR ---
[facility]CE[facility], FOR CONTINUITY OF CARE. SEDATED TO RASS -2, PER MD ORDERS. PUPILS 3 MM, PERRL, SLUGGISH. FLACC 0. ETT TO VENT, ON PRESCRIBED SETTINGS. SPO2 100%. LUNGS DIMINISHED THROUGHOUT. +S1, S2 UPON AUSCULTATION. OGT IN PLACE, CLAMPED, NPO AT THIS TIME. ZERO RESIDUAL ASPIRATED. RYNE PICC IN PLACE INFUSING TPN @ 50 ML/HR. LEVOPHED (CONC:2/250ML) 2 MCG/MIN (7.5 ML/HR) PROPOFOL 30 MCG/KG/MIN. SEE IV SPREADSHEET. LINE ASYMPTOMATIC WITH GOOD BLOOD RETURN. BOWEL SOUNDS ACTIVE X4. NO DISTENTION NOTED. FRANCO IN PLACE WITH CLOUDY ORANGE URINE NOTED. SKIN WARM AND DRY, SEE WOUND ASSESSMENT FOR DETAILS. SAFETY PRECAUTIONS IN PLACE WITH BED LOW AND LOCKED. HOB >30 DEGREES. WILL CONT TO MONITOR FOR CHANGES.
[2020-11-20] MEDS: DOCUSATE SODIUM 100 MG GELCAP PO SCH (08:56)
[2020-11-20] MEDS ORDERED: ENOXAPARIN 60 MG/0.6 ML SYR SUBQ ONE (09:37)
--- NOTE | 2020-11-20 11:11 | NUR ---
DR OSORIO AT BEDSIDE. UPDATED ON PT STATUS. NO NEW ORDERS AT THIS TIME.
--- NOTE | 2020-11-20 19:20 | NUR ---
ENDORSED PT REPORT TO NIGHTSHIFT NURSE, AT WINDOW, FOR CONTINUITY OF CARE. PICC LINE PATENT AT THIS TIME.
--- NOTE | 2020-11-20 20:00 | NUR ---
RECEIVED PATIENT IN SUPINE, ETT TO VENT WITH FIO2 90%, OG TUBE IS CLAMPED , ON TPN AT 50 ML/HR, PROPOFOL 40MCG/KG/MIN, LEVOPHED 2 MCG/MIN , ALL IV MEDICATION INFUSING AT RYNE PICC LINE, FRANCO CATHETER IN PLACE AND DRAINING TO GRAVITY, SINUS TACHY ON THE MONITOR. WILL CONTINUE TO MONITOR.
[2020-11-20] MEDS: AMINO ACIDS IV SCH ×4 (21:14)
[2020-11-20] MEDS: [UNRECOGNIZED DRUG - OTHER] IV SCH ×4 (21:14)
[2020-11-20] MEDS: MULTIVITAMIN IV SCH ×4 (21:14)
[2020-11-20] MEDS: DEXTROSE IV SCH ×4 (21:14)
[2020-11-21] VITALS (31 sets, daily range): BP systolic 93–156; BP diastolic 54–81
--- NOTE | 2020-11-21 | NUR ---
BS 146 AND NO COVERAGE PER SLIDING SCALE.
[2020-11-21] MEDS: BLOOD GLUCOSE MONITORING 1 DEV DEV MC SCH ×4 (00:36→18:36)
--- NOTE | 2020-11-21 05:00 | NUR ---
AM CARE GIVEN , TURN AND REPOSITION Q2H TO KEEP SKIN CLEAN ADN DRY.
[2020-11-21] MEDS: INSULIN LISPRO SLIDING SCALE 100 UNITS/ML VIAL SUBQ PRN ×3 (05:53→18:37)
--- NOTE | 2020-11-21 06:00 | NUR ---
BS 205 HUMALOG 4 UNIT GIVEN PER SLIDING SCALE.
[2020-11-21 06:40] LABS: HEMATOCRIT 42.5 % (36-52); HEMOGLOBIN 13.9 g/dL (12.0-18.0); MEAN CORPUSCULAR HEMOGLOBIN 31 pg (27-31); MEAN CORPUSCULAR HGB CONC 33 g/dL (33-37); MEAN CORPUSCULAR VOLUME 93.4 fL (80-94); PLATELET COUNT (AUTO) 142 K/uL (140-450); RED BLOOD CELL COUNT(AUTO) 4.55 MIL/uL (4.20-6.10); RED CELL DISTRIBUTION WIDTH 13.9 % (11.6-13.7)
[2020-11-21 06:58] LABS: ALBUMIN 1.3 g/dL (3.4-5.0); ANION GAP 12.4 (8-16); CARBON DIOXIDE 26.1 mmol/L (21-32); CREATININE 0.5 mg/dL (0.6-1.3); POTASSIUM 3.5 mmol/L (3.5-5.1); TOTAL BILIRUBIN 0.7 mg/dL (0.0-1.0)
[2020-11-21 07:02] LABS: MAGNESIUM 2.1 mg/dL (1.8-2.4); PHOSPHORUS 2.7 mg/dL (2.5-4.9)
--- NOTE | 2020-11-21 07:15 | NUR ---
RECEIVED REPORT FROM VISUALLY IMPAIRED TEACHER RN FOR CONTINUITY OF CARE. RASS -3, FLACC 0, DRY WEIGHT 47.6 KG, ETT TO VENT, AC/PC FIO2 40%, RATE 20, PEEP 10, RYNE PICC CLEAN, DRY AND INTACT, INURSING PROPOFOL AT 50 MCG/KG/MIN, TPN 50ML/HR, NS AT 5ML/HR TKO, LEVO AT 2 MCG/MIN, OGT IN PLACE. FRANCO IN PLACE WITH YELLOW URINE, CENTRAL SCHEDULER, PULSE OXIMETER, AND SAFETY MEASURES IN PLACE, BED IN LOW POSITION, WILL CONTINUE TO MONITOR.
[2020-11-21 08:31] LABS: LYMPHOCYTES % (MANUAL) 3 % (20-46); MONOCYTES % (MANUAL) 4 % (5-12)
[2020-11-21] MEDS: DOCUSATE 100 MG/10 ML UDC GT SCH (09:08)
--- NOTE | 2020-11-21 09:10 | NUR ---
CHECKED OGT FOR RESIDUAL, NO RESIDUAL, ADMINISTERED SCHEDULED AM MEDS. FLUSHED BEFORE AND AFTER, HYGIENE CARE, ORAL CARE, FRANCO CARE, AND CHG BATH PROVIDED, PATIENT TURNED, SUPERVISOR MIXING, PULSE OXIMETER, AND SAFET MEASURES IN PLACE, BED IN LOW POSITION, WILL CONTINUE TO MONITOR.
[2020-11-21] MEDS: PROPOFOL 1000 MG/100 ML PREMIX 100 ML IV PRN ×2 (10:34→19:09)
[2020-11-21] MEDS: fentaNYL citrate - 50mL vial 2.5 MG in NACL 0.9% 200 ML IV PRN (10:45)
--- NOTE | 2020-11-21 12:29 | NUR ---
DR. DEREJE ROBERTSON, UPDATED ON PATIENTS STATUS AND AWARE OF 30.0 WBC. WILL CONTINUE TO MONITOR.
--- NOTE | 2020-11-21 13:00 | NUR ---
CHECKED PATIENT BLOOD SUGAR, 192, COVERED 2 UNITS PER MD SLIDING SCALE, WILL CONTINUE TO MONITOR.
--- NOTE | 2020-11-21 15:30 | NUR ---
CHECKED BLOOD SUGAR, 192, CIOVERED WITH 2 UNITS PER MD SLIDING SCALE, WILL CONTINUE TO MONITOR. Addendum: 11/21/20 at 1918 by Jesenia Jain RN RN DISREGARD ABOVE NOTE, MEANT FOR [id number]
--- NOTE | 2020-11-21 17:30 | NUR ---
CHECKED BLOOD SUGAR, 192, CIOVERED WITH 2 UNITS PER MD SLIDING SCALE, WILL CONTINUE TO MONITOR.
--- NOTE | 2020-11-21 19:00 | NUR ---
CHECK PLACEMENT OF TUBE, OGT IN PLACE, STARTED TUBE FEEDING AT 10ML/HR. WILL CONTINUE TO MONITOR.
--- NOTE | 2020-11-21 19:30 | NUR ---
ENDORSED TO DIVISIONAL HUMAN RESOURCES DIRECTOR RN BRENNA FOR CONTINUITY OF CARE.
--- NOTE | 2020-11-21 19:49 | NUR ---
RECEIVED PATIENT IN SUPINE POSITION , INTUBATED AND SEDATED , ETT TO VENT WITH FIO2 40% , SINUS TACHY WITH RATE OF 138 ON THE MONITOR. RR 64 , IV DRIP: FENTANYL 2 MCG/KG/MIN PROPOFOL 45 MCG/KG/MIN, TPN 50 ML/HR, ALL IV MEDS GIVEN VIA RYNE PICC LINE WITH SITE CLEAN INTACT. OG TUBE FEEDING WITH GLUCENATE AT 10 ML/HR FRANCO CATHETER IN PLACE AND DRAINING TO GRAVITY, COOL MEASURE WITH ICE PACK APPLIED TO NECK AND HEAD , HR NOW IS 127 , WILL CONTINUE TO MONITOR.
[2020-11-21] MEDS ORDERED: MULTIVITAMIN-12 10 ML in DEXTROSE 50% 600 ML, AMINO ACIDS 8.5% 500 ML, FAT EMULSION 20%... IV SCH ×4 (20:00)
[2020-11-21] MEDS: DEXTROSE IV SCH ×4 (20:00)
[2020-11-21] MEDS: MULTIVITAMIN IV SCH ×4 (20:00)
[2020-11-21] MEDS: AMINO ACIDS IV SCH ×4 (20:00)
[2020-11-21] MEDS: [UNRECOGNIZED DRUG - OTHER] IV SCH ×4 (20:00)
[2020-11-22] VITALS (35 sets, daily range): BP systolic 92–139; BP diastolic 48–76
--- NOTE | 2020-11-22 00:37 | NUR ---
HUMALOG 2 UNITS SQ GIVEN PER SLIDING SCALE FOR BS 161.
--- NOTE | 2020-11-22 01:32 | NUR ---
increased fio2 to 50% sats 88%
[2020-11-22] MEDS: PROPOFOL 1000 MG/100 ML PREMIX 100 ML IV PRN ×3 (01:36→17:32)
[2020-11-22] MEDS: BLOOD GLUCOSE MONITORING 1 DEV DEV MC SCH ×5 (05:34→23:49)
[2020-11-22] MEDS: INSULIN LISPRO SLIDING SCALE 100 UNITS/ML VIAL SUBQ PRN ×3 (05:35→19:28)
[2020-11-22 06:08] LABS: MAGNESIUM 2.4 mg/dL (1.8-2.4); PHOSPHORUS 4.3 mg/dL (2.5-4.9)
--- NOTE | 2020-11-22 07:00 | NUR ---
RECEIVED A CALL FROM LAB FOR GLUCOSE 488 , ACCUCHECK DONE 108, PATIENT RUN TPN, REDREW BLOOD FROM PERIPHERAL LINE FOR RECHECK GLUCOSE.
--- NOTE | 2020-11-22 07:05 | NUR ---
RECEIVED REPORT FROM SECOND CUTTER RN FOR CONTINUITY OF CARE. RASS -2, FLACC 0, DRY WEIGHT 47.6 KG, ETT TO VENT, AC/PC FIO2 40%, RATE 20, PEEP 10, RYNE PICC CLEAN, DRY AND INTACT, INURSING PROPOFOL AT 50 MCG/KG/MIN, TPN 50ML/HR, NS AT 5ML/HR TKO, FENTANYL AT 2 MCG/HR, OGT IN PLACE, RUNNING GLUCERNA 1.2 AT 50ML/HR. FRANCO IN PLACE WITH URINE IN BAG, TRAINING ENGINEER, PULSE OXIMETER, AND SAFETY MEASURES IN PLACE, BED IN LOW POSITION, WILL CONTINUE TO MONITOR.
[2020-11-22 07:15] LABS: ANION GAP 6.8 (8-16); CARBON DIOXIDE 30.3 mmol/L (21-32); CREATININE 0.4 mg/dL (0.6-1.3); POTASSIUM 4.1 mmol/L (3.5-5.1)
[2020-11-22 07:53] LABS: HEMATOCRIT 41.4 % (36-52); HEMOGLOBIN 13.5 g/dL (12.0-18.0); MEAN CORPUSCULAR HEMOGLOBIN 30 pg (27-31); MEAN CORPUSCULAR HGB CONC 33 g/dL (33-37); PLATELET COUNT (AUTO) 126 K/uL (140-450); RED BLOOD CELL COUNT(AUTO) 4.46 MIL/uL (4.20-6.10); RED CELL DISTRIBUTION WIDTH 14.5 % (11.6-13.7)
[2020-11-22] MEDS: DOCUSATE 100 MG/10 ML UDC GT SCH (08:02)
--- NOTE | 2020-11-22 08:05 | NUR ---
CHECKED OGT FOR RESIDUAL, NO RESIDUAL, ADMINISTERED SCHEDULED AM MEDS. FLUSHED BEFORE AND AFTER, HYGIENE CARE, ORAL CARE, FRANCO CARE, AND CHG BATH PROVIDED, PATIENT TURNED, CHECKED TEMPERATURE, 99.9, STARTED COOLING MEASURES, BENCH SCIENTIST, PULSE OXIMETER, AND SAFETY MEASURES IN PLACE, BED IN LOW POSITION, WILL CONTINUE TO MONITOR.
[2020-11-22 09:12] LABS: WHITE BLOOD COUNT (AUTO) 31.5 K/uL (4.8-10.8)
[2020-11-22 09:13] LABS: EOSINOPHILS % (MANUAL) 1 % (0-4); LYMPHOCYTES % (MANUAL) 2 % (20-46); MONOCYTES % (MANUAL) 3 % (5-12)
--- NOTE | 2020-11-22 10:40 | NUR ---
DR. DEVON ROBERTSON, UPDATED ON PATIENTS STATUS AND AWARE OF WBC 31.5, ORDERED FLAGYL. WILL CONTINUE TO MONITOR.
--- NOTE | 2020-11-22 12:20 | NUR ---
DUE TO CURRENT PT CONDITION I AM UNABLE TO START PT ON SBT. CURRENTLY PT IS RECEIVING A PEEP OF 10 CMH20. THE GOAL IS TO DROP IT TO A PEEP OF 6CMH20. DUE TO CURRENT PT SATURATION HE NEEDS THE CURRENT PEEP OF [address] OSORIO HAS BEEN NOTIFIED ABOUT THE CURRENT PT STATUS AND WILL FOLLOW UP WITH DR. OSORIO IF THE CURRENT PT CONDITION IMPROVES AND IS ABLE TO DO SBT.
--- NOTE | 2020-11-22 12:50 | NUR ---
CHECKED PATIENT BLOOD SUGAR, 148, NO COVERAGE, WILL CONTINUE TO MONITOR.
[2020-11-22] MEDS: metroNIDAZOLE 500 MG/NS PREMIX 100 ML IV SCH ×2 (12:59→20:48)
[2020-11-22] MEDS: ACETAMINOPHEN 325 MG TAB PO PRN (13:38)
--- NOTE | 2020-11-22 13:45 | NUR ---
PRN TYLENOL GIVEN VIA OGT FOR TEMP 101.0
--- NOTE | 2020-11-22 16:33 | NUR ---
11/22/20 RD FOLLOW UP COMPLETED PLEASE REFER TO NUTRITION ASSESSMENT UNDER CARE ACTIVITY FOR ESTIMATED NUTRITIONAL NEEDS. 1. CONSIDER GLUCERNA 1.2 AT GOAL RATE OF 50 ML/HR X 24 HRS. START AT 25 ML/HR AND INCREASE TOLERATED TO GOAL RATE. -THIS WILL PROVIDE 1200 ML TOTAL VOLUME, 1440 KCAL, AND 72 GM OF PROTEIN, WHICH IS ADEQUATE TO MEET 100% OF ESTIMATED NUTRITION NEEDS. 2. RECOMMEND 200 ML FREE WATER FLUSH Q8H. 3. IF PT WILL NEED TO BE IN PRONE POSITION, RECOMMEND GLUCERNA 1.2 AT 100 ML/HR X 8 HRS WITH PROSOURCE TID. 4. RECOMMEND VITAMIN C 500 MG DAILY, ZINC 220 MG X 14 DAYS AND VITAMIN D [address] TO FOLLOW-UP 2-3 DAYS, HIGH RISK JOSE LUIS DOS SANTOS RD
--- NOTE | 2020-11-22 18:30 | NUR ---
CHECKED BLOOD SUGAR, 188, COVER 2 UNITS PER MD SLIDING SCALE. WILL CONTINUE TO MONITOR.
--- NOTE | 2020-11-22 19:30 | NUR ---
ENDORSED TO SUSTAINABLE AGRICULTURE FACULTY RNBRENNA, FOR CONTINUITY OF CARE.
--- NOTE | 2020-11-22 19:30 | NUR ---
RECEIVED PATIENT FROM AM SHIFT. PATIENT WAS SEEN AND ASSESSED. FOUND PT IN SUPINE POSITION. PATIENT IS INTUBATED WITH ETT SIZE 7.5 AND SECURED WITH BITTING BLOCK ANCHOR-FAST AT 25cm @ LIP. PATIENT IS ON VENT SETTINGS: AC/PC 26, RR 20, PEEP 10, FiO2 60% WITH SPO2 OF 93%. AMBU BAG AT BEDSIDE. VENT IS PLUGGED IN RED OUTLET. ALARMS SET AND AUDIBLE TO ENVIRONMENT. SUCTIONED SCANT AMOUNT OF CLEAR WHITE SECRETIONS FROM ETT. AIRWAY IS PATENT. AUSCULTATION REVEALS BILATERAL DIMINISHED ON THE UPPER LOBES AND RALES ON THE BASES. PATIENT IS IN NO APPARENT RESPIRATORY DISTRESS AT THIS TIME. WILL CONTINUE TO MONITOR PATIENT.
--- NOTE | 2020-11-22 19:57 | NUR ---
RECEIVED PATIENT INTUBATED AND SEDATED, ETT TO VENT WITH FIO2 60% PEEP 10 , OG TUBE FEEDING WITH GLUCENA AT 50 ML/HR, IV DRIP: FENTANYL 2 MCG/KG/HR PROPOFOL 50 MCG/KG/MIN LEVOPHED 2 MCG/MIN WITH SBP 79, INCREASED TO 4 , RECYCLED STILL LOW 76, PUT LEVOPHED TO 6 MCG/MIN AT THIS TIME SBP 104, ALL IV INFUSING AT RYNE , SITE IS CLEAR, FRANCO CATHETER IN PLACE AND DRAINING TO GRAVITY. WILL CONTINUE TO MONITOR.
--- NOTE | 2020-11-22 21:50 | NUR ---
FELT CREPITUS AROUND PT'S CHEST DURING ASSESSMENT. REVIEWED PT'S XRAY. ETT INTERPRETATION SAYS 8mm ABOVE ZAK. ORDERED XRAY TO VERIFY SUBCUTANEOUS EMPHYSEMA. RN NOTIFIED.
--- NOTE | 2020-11-22 22:00 | NUR ---
PATIENT IS NOT RESPONSIVE, TITRATE OFF PROPOFOL.
--- NOTE | 2020-11-22 23:30 | NUR ---
XRAY TAKEN AT BEDSIDE. ETT JUST ABOVE THE ZAK. PULLED BACK ETT FROM 25cm @LIP TO 22cm @ TEETH. XRAY WAS RETAKEN AT BEDSIDE AND ETT LOOKS GOOD. WILL WAIT FOR OFFICIAL INTERPRETATION.
[2020-11-23] VITALS (34 sets, daily range): BP systolic 91–163; BP diastolic 51–75
--- NOTE | 2020-11-23 00:20 | NUR ---
DR. OSORIO CALLED BACK. REPORTED THAT PT HAVE SUBCUTANEOUS EMPHYSEMA AND ALSO ETT WAS RETRACTED BACK.
--- NOTE | 2020-11-23 01:07 | NUR ---
SUBCUTANEOUS EMPHYSEMA FOUND AROUND PATIENT'S CHEST , CONFIRMED BY CXR , RT SPOKE TO DR YOMAIRA OSORIO OVER THE PHONE, NO NEW ORDER NOTED.
--- NOTE | 2020-11-23 03:26 | NUR ---
SPO2 99%. FiO2 TITRATED TO 50%. PT TOLERATING WELL AT THIS TIME. RN NOTIFIED. WILL CONTINUE TO MONITOR.
--- NOTE | 2020-11-23 05:00 | NUR ---
TITRATE OFF LEVOPHED FOR SBP 130
--- NOTE | 2020-11-23 05:17 | NUR ---
TITRATED SET PEAK INSPIRATORY PRESSURE FROM [id number] TO 22 cmH20 DUE TO PT PULLING TIDAL VOLUMES GREATER THAN 500cc AND INCREASE SET RR TO 24 bpm. WILL CONTINUE TO MONITOR PT.
[2020-11-23] MEDS: metroNIDAZOLE 500 MG/NS PREMIX 100 ML IV SCH ×3 (05:40→20:33)
[2020-11-23] MEDS: BLOOD GLUCOSE MONITORING 1 DEV DEV MC SCH ×4 (05:40→23:28)
[2020-11-23] MEDS: INSULIN LISPRO SLIDING SCALE 100 UNITS/ML VIAL SUBQ PRN ×2 (05:41→13:12)
--- NOTE | 2020-11-23 06:09 | NUR ---
PT IS STILL ON VENT SUPPORT. PT TOLERATING WELL. ADEQUATE CHEST RISE AND FALL. ETT SECURED WITH BITTING BLOCK ANCHOR-FAST. WILL CONTINUE TO MONITOR PT.
[2020-11-23 06:15] LABS: HEMATOCRIT 38.9 % (36-52); HEMOGLOBIN 12.8 g/dL (12.0-18.0); MEAN CORPUSCULAR HEMOGLOBIN 31 pg (27-31); MEAN CORPUSCULAR HGB CONC 33 g/dL (33-37); MEAN CORPUSCULAR VOLUME 94.9 fL (80-94); PLATELET COUNT (AUTO) 117 K/uL (140-450); RED CELL DISTRIBUTION WIDTH 14.1 % (11.6-13.7)
[2020-11-23 06:43] LABS: MAGNESIUM 2.8 mg/dL (1.8-2.4); PHOSPHORUS 7.8 mg/dL (2.5-4.9)
[2020-11-23 06:56] LABS: WHITE BLOOD COUNT (AUTO) 34.9 K/uL (4.8-10.8)
--- NOTE | 2020-11-23 06:56 | NUR ---
WBC 34.9 AND 31.3 YESTERDAY , MD ALREADY ADD NEW IV ANTIBIOTIC, WILL ENDORSE TO DAY SHIFT NURSE.
[2020-11-23 07:01] LABS: ANION GAP 12.8 (8-16); CARBON DIOXIDE 28.9 mmol/L (21-32); CREATININE 1.8 mg/dL (0.6-1.3)
[2020-11-23] MEDS: PROPOFOL 1000 MG/100 ML PREMIX 100 ML IV PRN ×2 (07:25→21:01)
--- NOTE | 2020-11-23 07:25 | NUR ---
RECEIVED REPORT FROM YARN PREPARATION SUPERVISOR RN, BRENNA, FOR CONTINUITY OF CARE. RASS -1, FLACC 0, ETT TO VENT ACPC FIO2 50, RATE 20, PEEP 10, RYNE PICC CLEAN DRY INTACT, INFUSING FENTANYL AT 2 MCG/KG/HR, NS AT 5ML/HR TKO, OGT IN PLACE RUNNING GLUCERNA 1.2 AT 50ML/HR, FRANCO CATH HANGING WITH URINE IN THE BAG, FIRST LEVELER, PULSE OXIMETER, AND SAFETY MEASURES IN PLACE, BED IN LOW POSITION, WILL CONTINUE TO MONITOR.
[2020-11-23 07:37] LABS: POTASSIUM 5.7 mmol/L (3.5-5.1)
--- NOTE | 2020-11-23 07:48 | NUR ---
PAGED DR. OSORIO FOR CRITICAL LAB VALUE, WAITING FOR CALL BACK.
[2020-11-23 08:52] LABS: LYMPHOCYTES % (MANUAL) 2 % (20-46); MONOCYTES % (MANUAL) 2 % (5-12)
[2020-11-23 08:53] LABS: EOSINOPHILS % (MANUAL) 1 % (0-4)
--- NOTE | 2020-11-23 09:40 | NUR ---
CHECKED PATIENT OGT RESIDUAL, >300 ML, HELD FEEDING, ADMINISTERED SCHEDULED AM MEDS, FLUSHED BEFORE AND AFTER, FRANCO CARE, ORAL, CARE, HYGIENE CARE, AND CHG BATH GIVEN, SOLUTIONS DELIVERY CONSULTANT, PULSE OXIMETER, AND SAFETY MEASURES IN PLACE, BED IN LOW POSITION, WILL CONTINUE TO MONITOR.
[2020-11-23] MEDS: DOCUSATE 100 MG/10 ML UDC GT SCH (09:49)
[2020-11-23] MEDS: fentaNYL citrate - 50mL vial 2.5 MG in NACL 0.9% 200 ML IV PRN (11:07)
[2020-11-23] MEDS ORDERED: SODIUM ZIRCONIUM CYCLOSILICATE 10 GM POWD.PACK GT/PO SCH (11:10)
--- NOTE | 2020-11-23 11:20 | NUR ---
DR. DEVON ROBERTSON UPDATED ON PATIENTS STATUS AND AWARE OF POSTASSIUM AT 5.7, ORDERS GIVEN, WILL CONTINUE TO MONITOR PATIENT.
[2020-11-23] MEDS: NACL 0.9% 1,000 ML IV SCH ×2 (11:42→20:50)
[2020-11-23] MEDS ORDERED: CALCIUM GLUCONATE 10% 1,000 MG in NACL 0.9% 50 ML IV SCH (12:00)
--- NOTE | 2020-11-23 12:20 | NUR ---
DR. MOLLY ROBERTSON. UPDATED ON PATIENT STATUS, AWARE OF POTASSIUM 5.7, ORDERS PLACED, WILL CONTINUE TO MONITOR.
[2020-11-23] MEDS ORDERED: SODIUM ZIRCONIUM CYCLOSILICATE 10 GM POWD.PACK PO SCH (12:25)
--- NOTE | 2020-11-23 13:00 | NUR ---
CHECKED RESIDUAL, 150 ML, RESTARTED FEEDING, CHECKED INSULIN, 178, COVED 2 UNITS PER MD SLIDING SCALE, ADMINISTERED SCHEDULED AFTERNOON MEDS, FLUSHED BEFORE AND AFTER, WILL CONTINUE TO MONITOR.
--- NOTE | 2020-11-23 14:49 | NUR ---
PT. LIZABETH WITH LOW LING SCALE AT RISK, BAG HANGER RELATED SKIN FAILURE TO NOSE BRIDGE 1X1CM DRY SCAB DARK PURPLE COLOR, KIRK-WOUND SKIN INTACT,WILL CONTINUE TO FOLLOW PRESSURE INJURY PREVENTION INTERVENTIONS. POC DISCUSSED WITH PRIMARY RN, FOAM DRESSING TO APPLY TO NOSE AND KEEP AREA DRY AND CLEAN AT ALL TIME. -TURN AND REPOSITION PATIENT Q 2H -ASSESS AND MONITOR SKIN CONDITION DURING POSITION CHANGE -OFFLOAD BILATERAL HEELS BY PLACING PILLOWS UNDER CALVES AT ALL TIMES, UNLESS OTHERWISE CONTRAINDICATED -PRESSURE REDISTRIBUTION BY PLACING PILLOWS AND OFFLOADING SACRALCOCCYX -KEEP SKIN CLEAN AND DRY AT ALL TIMES.
--- NOTE | 2020-11-23 17:30 | NUR ---
CHECKED PATIENTS INSULIN, 113, NO COVERAGE, WILL CONTINUE TO MONITOR.
--- NOTE | 2020-11-23 19:20 | NUR ---
ENDORSED TO SURVEY STATISTICIAN NURSE, BRENNA JOSEPH, FOR CONTINUITY OF CARE.
--- NOTE | 2020-11-23 19:33 | NUR ---
RECEIVED PATIENT FROM AM SHIFT. PATIENT WAS SEEN AND ASSESSED. FOUND PT IN SUPINE POSITION. PATIENT IS INTUBATED WITH ETT SIZE 7.5 AND SECURED WITH BITTING BLOCK ANCHOR-FAST AT 22cm. PATIENT IS ON VENT SETTINGS: AC/PC 22, RR 28, PEEP 9, FiO2 50% WITH SPO2 OF 95%. AMBU BAG AT BEDSIDE. VENT IS PLUGGED IN RED OUTLET. ALARMS SET AND AUDIBLE TO ENVIRONMENT. SUCTIONED SCANT AMOUNT OF CLEAR WHITE SECRETIONS FROM ETT. AIRWAY IS PATENT. AUSCULTATION REVEALS BILATERAL DIMINISHED ON THE UPPER LOBES AND RALES ON THE BASES. FELT CREPITUS AROUND THE CHEST. PATIENT IS IN NO APPARENT RESPIRATORY DISTRESS AT THIS TIME. WILL CONTINUE TO MONITOR PATIENT.
--- NOTE | 2020-11-23 19:47 | NUR ---
RECEIVED PATIENT IN VENT VIA ETT, SEDATED WITH PROPOFOL 25 MCG/KG/MIN AND FENTANYL 2 MCG/KG/HR, PATIENT HAS GASPING BREATH, INCREASED PROPOFOL TO 30 MCG/KG/MIN, IVF NS AT 100 ML/HR, ALL IV INFUSING AT RYNE PICC LINE, SITE IS CLEAR, OG TUBE FEEDING WITH GLUCENA AT 50 ML/HR, FRANCO CATHETER IN PLACE AND DRAINING TO GRAVITY. WILL CONTINUE TO MONITOR.
--- NOTE | 2020-11-23 20:57 | NUR ---
PAGED DR. CAMACHO @ 2054. DR. CAMACHO CALLED BACK @ THIS TIME AND ABG CRITICAL RESULTS WERE REPORTED. CHANGE SET RATE FROM 24 bpm TO 28 bpm. RN NOTIFIED. WILL CONTINUE TO MONITOR PT.
[2020-11-23] MEDS ORDERED: PIPERACILLIN/TAZOBACTAM 2.25 GM VIAL IV ONE (23:47)
[2020-11-23] MEDS: PIPER/TAZO 2.25GM/D5W PREMIX 50 ML IV SCH (23:54)
[2020-11-24] VITALS (33 sets, daily range): BP systolic 103–153; BP diastolic 46–70
[2020-11-24] MEDS ORDERED: PIPERACILLIN/TAZOBACTAM 3.375 GM in DEXTROSE 5% 50 ML IV SCH ×2
[2020-11-24] MEDS ORDERED: PIPERACILLIN/TAZOBACTAM 2.25 GM VIAL IV ONE (00:17)
--- NOTE | 2020-11-24 01:51 | NUR ---
BLOOD SUGAR CHECKED 137 , NO COVERAGE PER SLIDING SCALE.
--- NOTE | 2020-11-24 04:00 | NUR ---
SKIN CARE AND ORAL CARE GIVEN , TOLERATED FEEDING AND VENT SETTING , NO DISTRESS NOTED. WILL CONTINUE TO MONITOR.
[2020-11-24] MEDS: metroNIDAZOLE 500 MG/NS PREMIX 100 ML IV SCH ×3 (04:24→21:19)
[2020-11-24] MEDS: PIPER/TAZO 2.25GM/D5W PREMIX 50 ML IV SCH (04:25)
[2020-11-24] MEDS: BLOOD GLUCOSE MONITORING 1 DEV DEV MC SCH ×4 (05:30→23:53)
[2020-11-24] MEDS: INSULIN LISPRO SLIDING SCALE 100 UNITS/ML VIAL SUBQ PRN ×2 (05:31→23:52)
[2020-11-24 06:17] LABS: BASOPHILS % (AUTO) 0.2 % (0.0-2.0); EOSINOPHILS # (AUTO) 0.1 K/uL (0-0.4); EOSINOPHILS % (AUTO) 0.2 % (0.0-4.0); HEMATOCRIT 32.8 % (36-52); HEMOGLOBIN 10.8 g/dL (12.0-18.0); LYMPHOCYTES # (AUTO) 0.6 K/uL (2.0-11.5); LYMPHOCYTES % (AUTO) 2.2 % (20.5-51.1); MEAN CORPUSCULAR HEMOGLOBIN 31 pg (27-31); MEAN CORPUSCULAR HGB CONC 33 g/dL (33-37); MEAN CORPUSCULAR VOLUME 94.7 fL (80-94); MONOCYTES # (AUTO) 0.6 K/uL (0.8-1.0); MONOCYTES % (AUTO) 2.5 % (1.7-9.3); NEUTROPHILS # (AUTO) 24.3 K/uL (1.8-7.7); NEUTROPHILS % (AUTO) 94.9 % (42.2-75.2); PLATELET COUNT (AUTO) 102 K/uL (140-450); RED BLOOD CELL COUNT(AUTO) 3.47 MIL/uL (4.20-6.10); RED CELL DISTRIBUTION WIDTH 14.6 % (11.6-13.7)
[2020-11-24 06:29] LABS: ANION GAP 15.6 (8-16); CARBON DIOXIDE 22.6 mmol/L (21-32); CREATININE 2.4 mg/dL (0.6-1.3); POTASSIUM 4.2 mmol/L (3.5-5.1)
[2020-11-24 06:30] LABS: MAGNESIUM 2.7 mg/dL (1.8-2.4); PHOSPHORUS 6.4 mg/dL (2.5-4.9)
[2020-11-24] MEDS: NACL 0.9% 1,000 ML IV SCH ×2 (07:15→17:16)
--- NOTE | 2020-11-24 07:30 | NUR ---
RECEIVED BEDSIDE REPORT FROM LINEN ROOM SUPERVISOR NURSE BRENNA RN, PT SEDATED RASS -3, DRY WEIGHT 47.6 KG. PT ON ETT TO VENT, ACVC FIO2 50%, PEEP 9, RATE 28, NO SOB NOTED, SATURATING @ 96%, PICC LINE TO R UPPER ARM, PATENT INTACT, INFUSING PROPOFOL @ 35MCG/KG/MIN, FENTANYL @ 2MCG/KG/HR, NS @ 100ML/HR, INFUSING WELL, OGT INPLACE, WITH FEEDING, CONFIRMED PLACEMENT WITH AUSCULTATION. RESIDUAL 700ML, FEEDING HELD, WILL NOTIFIED DR. FRANCO CATH IN PLACE DRAINING TO GRAVITY. INITIAL ASSESSMENT DONE, ALL SAFETY PRECAUTION MET, CALL LIGHT WITHIN REACH, WILL CONTINUE TO MONITOR.
[2020-11-24 07:32] LABS: WHITE BLOOD COUNT (AUTO) 25.6 K/uL (4.8-10.8)
[2020-11-24] MEDS: DOCUSATE 100 MG/10 ML UDC GT SCH (08:44)
[2020-11-24] MEDS: PROPOFOL 1000 MG/100 ML PREMIX 100 ML IV PRN ×2 (09:00→17:30)
--- NOTE | 2020-11-24 12:01 | NUR ---
NOTIFIED DR. OSORIO REGARDING PT RESIDUAL 700 THIS MORNING, DR STATED TO HOLD FEEDING FOR NOW, WILL FOLLOW WITH ORDERS.
[2020-11-24] MEDS: PIPERACILLIN/TAZOBACTAM 2.25 GM in DEXTROSE 5% 50 ML IV SCH ×2 (13:01→18:48)
[2020-11-24] MEDS: fentaNYL citrate - 50mL vial 2.5 MG in NACL 0.9% 200 ML IV PRN (13:09)
--- NOTE | 2020-11-24 14:47 | NUR ---
PT IS DOING GOOD FROM THE VENTILATOR SETTINGS OF PEEP OF 9CMH20 TO 8CMH20. PER WEANING PARAMETERS ILL CONTINUE FURTHER WEANING DOWN THE PEEP TOLERATED BY PATIENT.
--- NOTE | 2020-11-24 19:08 | NUR ---
RECEIVED PATIENT FROM AM SHIFT. PATIENT WAS SEEN AND ASSESSED. FOUND PT IN SUPINE POSITION. PATIENT IS INTUBATED WITH ETT SIZE 7.5 AND SECURED WITH BITTING BLOCK ANCHOR-FAST AT 22cm. PATIENT IS ON VENT SETTINGS: AC/PC 22, RR 28, PEEP 7, FiO2 50% WITH SPO2 OF 97%. NOTICED ADEQUATE CHEST RISE AND FALL. AMBU BAG AT BEDSIDE. VENT IS PLUGGED IN RED OUTLET. ALARMS SET AND AUDIBLE TO ENVIRONMENT. SUCTIONED SMALL AMOUNT OF THAO THICK SECRETIONS FROM ETT. ORAL CARE DONE. SUCTIONED SMALL AMOUNT OF CLEAR WHITE THIN SECRETIONS ORALLY. AIRWAY IS PATENT. AUSCULTATION REVEALS BILATERAL DIMINISHED ON THE UPPER LOBES AND RALES ON THE BASES. FELT CREPITUS AROUND THE CHEST. PATIENT IS IN NO APPARENT RESPIRATORY DISTRESS AT THIS TIME. WILL CONTINUE TO MONITOR PATIENT.
--- NOTE | 2020-11-24 19:40 | NUR ---
RECEIVED REPORT FROM ORALIA JOSEPH AM SHIFT . ON ETT TO VENT, ACVC FIO2 50%, PEEP 7, RATE 28.SPO2 96%. BILATERAL LUNGS SOUND DIMINISH.COLD ROLLING COORDINATOR SHOW SINUS TACHY . PT IS ON SEDATION.PICC LINE TO RYNE DOUBLE LUMENS. CONT ON PROPOFOL AT 20 MCG/KG/MIN,CONT ON FENTANYL AT 2 MCG/KG/HR AND NS AT 100 CC/HR,ONE DOSE ALBUMIN STILL RUNNING. OGT INPLACE NO RESIDUAL CONT NEPRO ORDER START AT 20 TO REACH GOAL AT 40 CC/HR. SKIN WARM TO TOUCH. SKIN INTACT.SCAB ON TOP NOSE. FRANCO CATH IN PLACE DRAINING YELLOW CLOUDY URINE. INITIAL ASSESSMENT DONE, ALL SAFETY PRECAUTION MET,KEPT CLEAN AND DRY. CALL LIGHT WITHIN REACH, WILL CONTINUE TO MONITOR.
--- NOTE | 2020-11-24 19:45 | NUR ---
ENDORSED PT TO FORMULA CHECKER NURSE FOR CONTINUOUS OF CARE.
[2020-11-24] MEDS: ASCORBIC ACID 500 MG/5 ML ORASYR GT SCH (21:19)
--- NOTE | 2020-11-24 21:40 | NUR ---
NIGHT MED GIVEN JOEY WELL.
[2020-11-24] MEDS ORDERED: ZOLPIDEM 10 MG TAB ONE (22:46)
--- NOTE | 2020-11-24 22:46 | NUR ---
COLIN BUTT RN FROM TELE NURSE ACCIDENTLY PULLED AMBIEN UNDER KING GOLDSMITH NAME. AND MEDICATION WAS RETURN TO PHARMACY BY COLIN BUTT RN. KING GOLDSMITH BANDAR NO ORDER FOR AMBALEJANDRO. PT IS UNDER SEDATION RASS-2.
[2020-11-25] VITALS (35 sets, daily range): BP systolic 95–149; BP diastolic 50–72
[2020-11-25] MEDS: PIPERACILLIN/TAZOBACTAM 2.25 GM in DEXTROSE 5% 50 ML IV SCH ×4 (00:02→17:51)
--- NOTE | 2020-11-25 00:30 | NUR ---
T 97.7,BLOOD USGAR 159 AND 2 UNITS INSULIN GIVEN ORDER. NO DISTRESS AT THIS TIME.
[2020-11-25] MEDS: NACL 0.9% 1,000 ML IV SCH ×2 (03:15→13:15)
--- NOTE | 2020-11-25 03:30 | NUR ---
URINE SPECIMEN FOR RANDOM SODIUM COLLECTED AND SENT TO LABS
--- NOTE | 2020-11-25 03:30 | NUR ---
AM CARE GIVEN. JOEY WELL. KEPT PT CLEAN AND DRY.
--- NOTE | 2020-11-25 05:30 | NUR ---
AM MEDS GIVEN JOEY WELL. BLOOD SUGAR 105 NO INSULIN GIVEN.
[2020-11-25] MEDS: metroNIDAZOLE 500 MG/NS PREMIX 100 ML IV SCH ×3 (05:31→20:27)
[2020-11-25] MEDS: BLOOD GLUCOSE MONITORING 1 DEV DEV MC SCH ×3 (05:32→17:53)
[2020-11-25 06:08] LABS: ANION GAP 12.8 (8-16); CARBON DIOXIDE 25.9 mmol/L (21-32); CREATININE 2.8 mg/dL (0.6-1.3); POTASSIUM 4.7 mmol/L (3.5-5.1)
[2020-11-25 06:22] LABS: BASOPHILS % (AUTO) 0.1 % (0.0-2.0); EOSINOPHILS # (AUTO) 0.1 K/uL (0-0.4); EOSINOPHILS % (AUTO) 0.2 % (0.0-4.0); HEMATOCRIT 35.2 % (36-52); HEMOGLOBIN 11.3 g/dL (12.0-18.0); LYMPHOCYTES # (AUTO) 0.5 K/uL (2.0-11.5); LYMPHOCYTES % (AUTO) 1.9 % (20.5-51.1); MEAN CORPUSCULAR HEMOGLOBIN 31 pg (27-31); MEAN CORPUSCULAR HGB CONC 32 g/dL (33-37); MEAN CORPUSCULAR VOLUME 95.6 fL (80-94); MONOCYTES # (AUTO) 0.6 K/uL (0.8-1.0); MONOCYTES % (AUTO) 2.3 % (1.7-9.3); NEUTROPHILS # (AUTO) 24.9 K/uL (1.8-7.7); NEUTROPHILS % (AUTO) 95.5 % (42.2-75.2); PLATELET COUNT (AUTO) 118 K/uL (140-450); RED BLOOD CELL COUNT(AUTO) 3.68 MIL/uL (4.20-6.10)
[2020-11-25 06:27] LABS: WHITE BLOOD COUNT (AUTO) 26.1 K/uL (4.8-10.8)
--- NOTE | 2020-11-25 07:36 | NUR ---
REPORT GIVEN TO AM SHIFT. PT NO DISTRESS AT THIS TIME
[2020-11-25] MEDS ORDERED: PANTOPRAZOLE 40 MG INJ VIAL IVP SCH (09:00)
--- NOTE | 2020-11-25 09:00 | NUR ---
HEPARIN NOT GIVEN DUE TO PT GETTING DIALYSIS CATH INSERTION AT THIS MOMENT AND PT PLATELETS IS 113. WILL CONTINUE TO MONITOR.
[2020-11-25] MEDS: VITAMIN D 400 IU TAB NG SCH (09:31)
[2020-11-25] MEDS: DOCUSATE 100 MG/10 ML UDC GT SCH (09:31)
[2020-11-25] MEDS: ASCORBIC ACID 500 MG/5 ML ORASYR GT SCH ×2 (09:31→20:27)
[2020-11-25] MEDS: PROPOFOL 1000 MG/100 ML PREMIX 100 ML IV PRN (11:41)
[2020-11-25] MEDS: INSULIN LISPRO SLIDING SCALE 100 UNITS/ML VIAL SUBQ PRN ×2 (12:06→17:54)
--- NOTE | 2020-11-25 14:38 | NUR ---
11/25/20 RD FOLLOW UP COMPLETED PLEASE REFER TO NUTRITION ASSESSMENT UNDER CARE ACTIVITY FOR ESTIMATED NUTRITIONAL NEEDS. 1. CONT.NEPRO 1.8 @ 40 ML/HR; CONTINUE FLUSH OF 100 ML Q6H -THIS PROVIDES 1728 KCAL AND 78 GM OF PROTEIN, MEETING 100% OF ESTIMATED NUTRIENT NEEDS 2. CONT. VITAMIN C 500 MG DAILY AND VITAMIN D [address] TO FOLLOW-UP 2-3 DAYS, HIGH RISK JOSE LUIS DOS SANTOS, RD
[2020-11-25] MEDS: fentaNYL citrate - 50mL vial 2.5 MG in NACL 0.9% 200 ML IV PRN (15:14)
--- NOTE | 2020-11-25 17:56 | NUR ---
PT NOT IN ANY DISTRESS AT THIS TIME. VENT ALARMS ON AND FUNCTIONING. ETT IS SECURE WITH A PATENT AIRWAY.
--- NOTE | 2020-11-25 19:00 | NUR ---
REPORT RECEIVED FROM AM SHIFT RN FOR CONTINUITY OF CARE. ST ON MONITOR. SEDATED, RASS -3. ETT TO VENT. AC/PC MODE. FIO2 55%, RATE 20, PEEP 7. IV SITE RIJ JUAN CATH IN SALINE LOCKED AND RT UPPER ARM PICC LINE, INFUSING PROPOFOL 20 MCG/KG/MIN, AND FENTANYL 2MCG/KG/MIN, AND NORMAL SALINE 100ML/HR. OGT TO FEEDING. 0 RESIDUALS NOTED. FRANCO CATHETER IN PLACE. HOB 30 DEGREES, BED LOCKED IN LOWEST POSITION. SAFETY PRECAUTIONS IN PLACE. WILL CONTINUE TO MONITOR.
--- NOTE | 2020-11-25 21:00 | NUR ---
REPORT GIVEN TO CARLIE JOSEPH FOR CONTINUITY OF CARE
--- NOTE | 2020-11-25 21:00 | NUR ---
RECEIVED PT ORALLY INTUBATED AND CONNECTED TO VENT AT ORDERED SETTING. O2= 93%. HE I SEDATED WITH PROPOFOL RUNNING AT 20 MCG/KGC/MINUTE. NO S/SX OF PAIN OR DISCOMFORT NOTICED. RASS=-3. OGT ON PLACE, THE FEEDING NEPRO RUNNING AT 20 ML /HR . THE GOAL IS 40ML/HR. RESIDUAL=10MML AT THIS TIME..NOTICED EDEMA NONPITTING EDEMA +2 T0 BOTH FEET.F/C ON PLACE DRAINING CLEAR URINE.
[2020-11-26] VITALS (31 sets, daily range): BP systolic 82–128; BP diastolic 38–81
[2020-11-26] MEDS: PROPOFOL 1000 MG/100 ML PREMIX 100 ML IV PRN (02:40)
[2020-11-26] MEDS: NACL 0.9% 1,000 ML IV SCH ×3 (02:41→19:15)
[2020-11-26] MEDS: metroNIDAZOLE 500 MG/NS PREMIX 100 ML IV SCH ×3 (05:00→21:36)
[2020-11-26] MEDS: PIPERACILLIN/TAZOBACTAM 2.25 GM in DEXTROSE 5% 50 ML IV SCH ×5 (05:43→17:33)
[2020-11-26 06:36] LABS: BASOPHILS # (AUTO) 0.3 K/uL (0.00-0.22); BASOPHILS % (AUTO) 1.4 % (0.0-2.0); HEMATOCRIT 31.4 % (36-52); HEMOGLOBIN 10.1 g/dL (12.0-18.0); LYMPHOCYTES # (AUTO) 0.4 K/uL (2.0-11.5); LYMPHOCYTES % (AUTO) 1.8 % (20.5-51.1); MEAN CORPUSCULAR HEMOGLOBIN 31 pg (27-31); MEAN CORPUSCULAR HGB CONC 32 g/dL (33-37); MONOCYTES # (AUTO) 0.6 K/uL (0.8-1.0); MONOCYTES % (AUTO) 2.3 % (1.7-9.3); NEUTROPHILS # (AUTO) 22.6 K/uL (1.8-7.7); NEUTROPHILS % (AUTO) 94.5 % (42.2-75.2); PLATELET COUNT (AUTO) 117 K/uL (140-450); RED BLOOD CELL COUNT(AUTO) 3.27 MIL/uL (4.20-6.10); RED CELL DISTRIBUTION WIDTH 15.2 % (11.6-13.7)
[2020-11-26] MEDS: INSULIN LISPRO SLIDING SCALE 100 UNITS/ML VIAL SUBQ PRN ×2 (06:41)
[2020-11-26] MEDS: BLOOD GLUCOSE MONITORING 1 DEV DEV MC SCH ×4 (06:44→18:00)
--- NOTE | 2020-11-26 06:51 | NUR ---
RECEIVED INTUBATED PT WITH A 7.5 ETT SECURED@23 TEETH/GUM ON VENT. SETTINGS PC Pinsp 22, R28, PEEP 7 AND FIO2 TITRATED TO 45%. PT NOT IN ANY DISTRESS AT THIS TIME. VENT IS PLUGGED INTO A RED OUTLET WITH ALARMS ON AND FUNCTIONING. WILL CONTINUE TO MONITOR.
[2020-11-26 06:55] LABS: ANION GAP 17.8 (8-16); CARBON DIOXIDE 20.4 mmol/L (21-32); POTASSIUM 5.2 mmol/L (3.5-5.1)
--- NOTE | 2020-11-26 07:00 | NUR ---
CREATININ=3.47
[2020-11-26 07:05] LABS: CREATININE 3.5 mg/dL (0.6-1.3)
[2020-11-26] MEDS: ASCORBIC ACID 500 MG/5 ML ORASYR GT SCH ×2 (08:46→21:35)
[2020-11-26] MEDS: VITAMIN D 400 IU TAB NG SCH (08:46)
[2020-11-26] MEDS: DOCUSATE 100 MG/10 ML UDC GT SCH (08:46)
--- NOTE | 2020-11-26 08:48 | NUR ---
HEPARIN NOT GIVEN, LOW PLATELETS 117
[2020-11-26] MEDS: PANTOPRAZOLE 40 MG INJ VIAL IVP SCH (09:04)
--- NOTE | 2020-11-26 09:19 | NUR ---
DR. JAX BARNES WAS INFORMED ABOUT CHEST XRAY RESULT -RIGHT HEMOTHORAX CALLED BY RADIOLOGIST
--- NOTE | 2020-11-26 09:52 | NUR ---
FIO2 INCREASED TO 50% DUE TO LOW SPO2, NURSE MADE AWARE. WILL CONTINUE TO MONITOR.
[2020-11-26] MEDS: fentaNYL citrate - 50mL vial 2.5 MG in NACL 0.9% 200 ML IV PRN (17:34)
--- NOTE | 2020-11-26 20:30 | NUR ---
RECEIVED PT ORALLY SEDATED AND CONNECTED TO VENT AT ORDERED SETTING .. HE IS SEDATED WITH WITH PROPOFOL.RASS=-3. V/S ARE WNL LIVOPHED IS STOPPED IS STOPPED AT THIS TIME.' NO S/SX OF PAIN OR DISCOMFORT IS NOTICED. F/C ON PLACE DRAINING BROWN URINE.NGT RUNNING AT 40 ML/HR. PT TOLERATING WELL THE FEEDING NO RESIDUAL RECEIVED . .
--- NOTE | 2020-11-26 22:30 | NUR ---
PT'S B/R=1122' THE LIVOPHED IIS RESUMED AT 5MCG/KG/MIN.
--- NOTE | 2020-11-26 23:00 | NUR ---
PT'S B/P=96/52 =96/56 AT THIS TIME.
[2020-11-27] VITALS (26 sets, daily range): BP systolic 84–122; BP diastolic 2–68
[2020-11-27] MEDS: PIPERACILLIN/TAZOBACTAM 2.25 GM in DEXTROSE 5% 50 ML IV SCH ×4 (00:01→17:19)
[2020-11-27] MEDS: INSULIN LISPRO SLIDING SCALE 100 UNITS/ML VIAL SUBQ PRN ×2 (00:22→06:37)
[2020-11-27] MEDS: NOREPINEPHRINE 4 MG in DEXTROSE 5% 250 ML IV PRN ×2 (03:15→23:30)
[2020-11-27] MEDS: metroNIDAZOLE 500 MG/NS PREMIX 100 ML IV SCH ×3 (05:27→21:00)
[2020-11-27] MEDS: NACL 0.9% 1,000 ML IV SCH ×3 (05:31→20:31)
[2020-11-27 06:26] LABS: HEMOGLOBIN 9.3 g/dL (12.0-18.0); MEAN CORPUSCULAR HEMOGLOBIN 31 pg (27-31); MEAN CORPUSCULAR HGB CONC 32 g/dL (33-37); MEAN CORPUSCULAR VOLUME 96.5 fL (80-94); PLATELET COUNT (AUTO) 138 K/uL (140-450); RED CELL DISTRIBUTION WIDTH 15.6 % (11.6-13.7)
[2020-11-27 06:33] LABS: ALBUMIN 1.2 g/dL (3.4-5.0); CARBON DIOXIDE 24.9 mmol/L (21-32); CREATININE 3.6 mg/dL (0.6-1.3); POTASSIUM 4.9 mmol/L (3.5-5.1)
[2020-11-27] MEDS: BLOOD GLUCOSE MONITORING 1 DEV DEV MC SCH ×4 (06:38→18:37)
--- NOTE | 2020-11-27 07:20 | NUR ---
RECEIVED PT REPORT AT THIS TIME FROM NIGHTSMEFT RN. PT LYING IN BED, SEDATED TO RASS -3. DRY WEIGHT 47.6 KG. PUPILS 3 MM, PERRL. RESPONDS TO PAINFUL STIMULI. ETT TO VENT ON PRESCRIBED SETTINGS, SPO2 98%. LUNG SOUNDS DIMINISHED THROUGHOUT. +S1, S2 UPON AUSCULTATION. SR ON MONITOR. OGT IN PLACE. 200 ML RESIDUAL ASPIRATED AND REPLACED. TUBE FEEDING CONTINUES ON HOLD, PER MD PARAMETERS. FRANCO IN PLACE DRAINING ORANGE COLORED-URINE TO GRAVITY. RT UPPER ARM PICC IN PLACE, INFUSING FENTANYL, LEVOPHED, AND PROPOFOL, AND NS. SEE IV SPREADSHEET FOR DETAILS. SKIN NOT INTACT, SEE WOUND ASSESSMENT. SAFETY PRECAUTIONS IN PLACE. BED LOW AND LOCKED WITH HOB >30 DEGREES. WILL CONT TO MONITOR FOR CHANGES.
[2020-11-27 07:34] LABS: WHITE BLOOD COUNT (AUTO) 26.9 K/uL (4.8-10.8)
[2020-11-27 07:35] LABS: LYMPHOCYTES % (MANUAL) 4 % (20-46); MONOCYTES % (MANUAL) 5 % (5-12)
[2020-11-27] MEDS: ASCORBIC ACID 500 MG/5 ML ORASYR GT SCH ×2 (09:31→21:00)
[2020-11-27] MEDS: DOCUSATE 100 MG/10 ML UDC GT SCH (09:31)
[2020-11-27] MEDS: PANTOPRAZOLE 40 MG INJ VIAL IVP SCH (09:31)
[2020-11-27] MEDS: VITAMIN D 400 IU TAB NG SCH (09:31)
--- NOTE | 2020-11-27 09:50 | NUR ---
DR BARNES IN TO SEE PT. UPDATED ON PT STATUS. NO NEW ORDERS AT THIS TIME.
[2020-11-27] MEDS: PROPOFOL 1000 MG/100 ML PREMIX 100 ML IV PRN (11:54)
--- NOTE | 2020-11-27 12:00 | NUR ---
FACETIME CALL WITH FAMILY AT THIS TIME
--- NOTE | 2020-11-27 16:00 | NUR ---
FLACC 0. BED BATH PROVIDED. REPOSITIONED WITH PRESSURE AREAS OFFLOADED. VAP ORAL CARE AND CATH CARE ADMINISTERED WITHOUT INCIDENT. SAFETY PRECAUTIONS IN PLACE WITH BED LOW AND LOCKED. WILL CONT TO MONITOR FOR CHANGES.
--- NOTE | 2020-11-27 20:45 | NUR ---
RECEIVED PT ORALLY INTUBATED AND CONNECTED TO VENT AT ORDERED SETTING. NO S/S OF PAIN O DISTRAIT NOTICED . PT IS ON PROPOFOL FOR SEDATION. RASS=- . LIVOPHED IS RUNNING TO KEEP SYSTOLIC B/P ABOVE 90.. V/S- WNL .F/C ON PLACE MINIMAL [place] OF BROWN URINE. PT IS ON HD.
[2020-11-27] MEDS: fentaNYL citrate - 50mL vial 2.5 MG in NACL 0.9% 200 ML IV PRN (23:35)
[2020-11-28] VITALS (30 sets, daily range): BP systolic 83–168; BP diastolic 32–69
[2020-11-28] MEDS: PIPERACILLIN/TAZOBACTAM 2.25 GM in DEXTROSE 5% 50 ML IV SCH ×4 (00:24→17:09)
[2020-11-28] MEDS: metroNIDAZOLE 500 MG/NS PREMIX 100 ML IV SCH ×2 (05:33→13:00)
[2020-11-28] MEDS: PROPOFOL 1000 MG/100 ML PREMIX 100 ML IV PRN ×2 (05:39→22:49)
[2020-11-28 06:10] LABS: BASOPHILS % (AUTO) 0.2 % (0.0-2.0); EOSINOPHILS % (AUTO) 0.1 % (0.0-4.0); HEMATOCRIT 30.1 % (36-52); HEMOGLOBIN 9.7 g/dL (12.0-18.0); LYMPHOCYTES # (AUTO) 0.5 K/uL (2.0-11.5); LYMPHOCYTES % (AUTO) 2.3 % (20.5-51.1); MEAN CORPUSCULAR HEMOGLOBIN 31 pg (27-31); MEAN CORPUSCULAR HGB CONC 32 g/dL (33-37); MEAN CORPUSCULAR VOLUME 96.3 fL (80-94); MONOCYTES # (AUTO) 0.3 K/uL (0.8-1.0); MONOCYTES % (AUTO) 1.3 % (1.7-9.3); NEUTROPHILS # (AUTO) 21.2 K/uL (1.8-7.7); NEUTROPHILS % (AUTO) 96.1 % (42.2-75.2); PLATELET COUNT (AUTO) 135 K/uL (140-450); RED BLOOD CELL COUNT(AUTO) 3.13 MIL/uL (4.20-6.10); RED CELL DISTRIBUTION WIDTH 15.8 % (11.6-13.7)
[2020-11-28] MEDS: INSULIN LISPRO SLIDING SCALE 100 UNITS/ML VIAL SUBQ PRN (06:30)
[2020-11-28] MEDS: BLOOD GLUCOSE MONITORING 1 DEV DEV MC SCH ×4 (06:36→17:46)
[2020-11-28 06:39] LABS: ALBUMIN 1.2 g/dL (3.4-5.0); ANION GAP 19.3 (8-16); CARBON DIOXIDE 20.8 mmol/L (21-32); POTASSIUM 5.1 mmol/L (3.5-5.1); TOTAL BILIRUBIN 1.4 mg/dL (0.0-1.0)
[2020-11-28 06:43] LABS: CREATININE 4.4 mg/dL (0.6-1.3)
--- NOTE | 2020-11-28 07:20 | NUR ---
RECEIVED PT REPORT AT THIS TIME FROM NIGHTSAKFT RN. PT LYING IN BED, SEDATED TO RASS -3. DRY WEIGHT 47.6 KG. PUPILS 3 MM, PERRL. RESPONDS TO PAINFUL STIMULI. ETT TO VENT ON PRESCRIBED SETTINGS, SPO2 98%. LUNG SOUNDS DIMINISHED THROUGHOUT. +S1, S2 UPON AUSCULTATION. SR ON MONITOR. OGT IN PLACE. 380 ML RESIDUAL ASPIRATED AND REPLACED. TUBE FEEDING CONTINUES ON HOLD, PER MD PARAMETERS. FRANCO IN PLACE DRAINING ORANGE COLORED-URINE TO GRAVITY. RT UPPER ARM PICC IN PLACE, INFUSING FENTANYL, LEVOPHED, AND PROPOFOL, NS. SEE IV SPREADSHEET FOR DETAILS. SKIN NOT INTACT, SEE WOUND ASSESSMENT. SAFETY PRECAUTIONS IN PLACE. BED LOW AND LOCKED WITH HOB >30 DEGREES. WILL CONT TO MONITOR FOR CHANGES.
--- NOTE | 2020-11-28 08:50 | NUR ---
DR BARNES AT WINDOW. UPDATED ON PT CONDITION. NEW ORDERS OBTAINED AND IMPLEMENTED.
--- NOTE | 2020-11-28 09:00 | NUR ---
XRAY AT BEDSIDE
--- NOTE | 2020-11-28 09:30 | NUR ---
NOTIFIED [facility] RESPIRATORY THERAPIST, OF NEED TO PULL ETT BACK BY 2 CM, PER RADIOLOGY @ THIS TIME.
[2020-11-28] MEDS: PANTOPRAZOLE 40 MG INJ VIAL IVP SCH (09:52)
[2020-11-28] MEDS: ASCORBIC ACID 500 MG/5 ML ORASYR GT SCH ×2 (09:52→21:21)
[2020-11-28] MEDS: VITAMIN D 400 IU TAB NG SCH (09:52)
[2020-11-28] MEDS: DOCUSATE 100 MG/10 ML UDC GT SCH (09:52)
--- NOTE | 2020-11-28 10:00 | NUR ---
HEMODIALYSIS NURSE AT BEDSIDE.
--- NOTE | 2020-11-28 15:50 | NUR ---
11/28/20 RD FOLLOW UP COMPLETED PLEASE REFER TO NUTRITION ASSESSMENT UNDER CARE ACTIVITY FOR ESTIMATED NUTRITIONAL NEEDS. 1. CONT. NEPRO 1.8 @ 40 ML/HR; CONTINUE FLUSH OF 100 ML Q6H -THIS PROVIDES 1728 KCAL AND 78 GM OF PROTEIN, MEETING 100% OF ESTIMATED NUTRIENT NEEDS 2. CONT. VITAMIN C 500 MG DAILY AND VITAMIN D [address] TO FOLLOW-UP 2-3 DAYS, HIGH RISK JOSE LUIS DOS SANTOS, RD
[2020-11-28] MEDS ORDERED: hePARIN / DEXT 5% PREMIX 250 ML IV SCH ×2 (16:40→16:55)
[2020-11-28] MEDS ORDERED: HEPARIN PER PHARMACY MC PRN (16:40)
[2020-11-28] MEDS: METOCLOPRAMIDE 10 MG/2 ML INJ VIAL IVP SCH (17:09)
[2020-11-28 17:53] LABS: PROTHROMBIN TIME 11.1 secs (10.8-13.4)
[2020-11-28] MEDS: NOREPINEPHRINE 4 MG in DEXTROSE 5% 250 ML IV PRN (20:00)
--- NOTE | 2020-11-28 20:45 | NUR ---
Large 1 inch in diameter chunk of blood clot obtained from mouth w/ bloody secretions suctioned w/ kennedy. VAP oral care done w/ CHG. Heparin Drip not started. Will make MD aware. SR on the scope. On Levophed, Propofol & Fentanyl Drips. On vent via ETT on AC/PC mode Rate 28, FiO2 55% PEEP +8. U2Til=42-21% Repositioned. Will cont. to monitor.
[2020-11-29] VITALS (54 sets, daily range): BP systolic 85–173; BP diastolic 38–77
[2020-11-29] MEDS: BLOOD GLUCOSE MONITORING 1 DEV DEV MC SCH ×4 (01:00→18:15)
[2020-11-29] MEDS: METOCLOPRAMIDE 10 MG/2 ML INJ VIAL IVP SCH ×4 (01:38→18:15)
--- NOTE | 2020-11-29 02:00 | NUR ---
Pt. had large continuous BM after adm. of Reglan IVP. Kept clean and dry, Repositioned. CHG bath rendered. Will cont. to monitor.
[2020-11-29] MEDS ORDERED: NOREPINEPHRINE 4 MG/4 ML VIAL IV ONE (03:59)
[2020-11-29] MEDS: NOREPINEPHRINE 4 MG in DEXTROSE 5% 250 ML IV PRN (05:00)
[2020-11-29 06:06] LABS: ALBUMIN 1.1 g/dL (3.4-5.0); ANION GAP 18.5 (8-16); CARBON DIOXIDE 22.5 mmol/L (21-32); CREATININE 3.7 mg/dL (0.6-1.3); TOTAL BILIRUBIN 1.6 mg/dL (0.0-1.0)
[2020-11-29 06:07] LABS: HEPATITIS A ANTIBODY IGM Negative (Negative); HEPATITIS B CORE AB TOTAL Negative (Negative); HEPATITIS B SURFACE ANTIBODY Non Reactive (.); HEPATITIS B SURFACE ANTIGEN Negative (Negative)
[2020-11-29 06:14] LABS: BASOPHILS % (AUTO) 0.1 % (0.0-2.0); EOSINOPHILS % (AUTO) 0.2 % (0.0-4.0); HEMATOCRIT 28.5 % (36-52); HEMOGLOBIN 9.4 g/dL (12.0-18.0); LYMPHOCYTES # (AUTO) 0.4 K/uL (2.0-11.5); MEAN CORPUSCULAR HEMOGLOBIN 31 pg (27-31); MEAN CORPUSCULAR HGB CONC 33 g/dL (33-37); MEAN CORPUSCULAR VOLUME 94.3 fL (80-94); MONOCYTES # (AUTO) 0.2 K/uL (0.8-1.0); MONOCYTES % (AUTO) 1.1 % (1.7-9.3); NEUTROPHILS # (AUTO) 18.6 K/uL (1.8-7.7); NEUTROPHILS % (AUTO) 96.6 % (42.2-75.2); PLATELET COUNT (AUTO) 126 K/uL (140-450); RED BLOOD CELL COUNT(AUTO) 3.03 MIL/uL (4.20-6.10); RED CELL DISTRIBUTION WIDTH 15.7 % (11.6-13.7); WHITE BLOOD COUNT (AUTO) 19.2 K/uL (4.8-10.8)
--- NOTE | 2020-11-29 06:30 | NUR ---
Dr. Aguirre, immigration investigator for Dr. Hernandez, made aware of blood clot obtained from mouth & of bloodtinged to bloody oral secretions; and that Heparin Drip was not started. said it is okay to hold Heparin Drip for now. SR on the scope. Kept clean & dry. Will cont. to monitor.
--- NOTE | 2020-11-29 07:30 | NUR ---
Report given to JAKE Quarles w/ all questions answered. Care endorsed.
--- NOTE | 2020-11-29 07:30 | NUR ---
RECEIVED PT REPORT AT THIS TIME FROM NIGHTSRIFT RN. PT LYING IN BED, SEDATED TO RASS -3. DRY WEIGHT 47.6 KG. PUPILS 3 MM, PERRL. RESPONDS TO PAINFUL STIMULI. ETT TO VENT ON PRESCRIBED SETTINGS, SPO2 98%. LUNG SOUNDS DIMINISHED THROUGHOUT. +S1, S2 UPON AUSCULTATION. SR ON MONITOR. OGT IN PLACE. 50 ML RESIDUAL ASPIRATED AND REPLACED. TUBE FEEDING RUNNING AT 10 ML/HR (GOAL 40 ML/HR) FRANCO IN PLACE DRAINING SCANT AMOUNT OF ORANGE COLORED-URINE TO GRAVITY. RT UPPER ARM PICC IN PLACE, INFUSING FENTANYL, LEVOPHED, AND PROPOFOL, AND NS. SEE IV SPREADSHEET FOR DETAILS. RT IJ JUAN IN PLACE FOR HD. ASYMPTOMATIC IN APPEARANCE. SKIN NOT INTACT, SEE WOUND ASSESSMENT. SAFETY PRECAUTIONS IN PLACE. BED LOW AND LOCKED WITH HOB >30 DEGREES. WILL CONT TO MONITOR FOR CHANGES.
[2020-11-29] MEDS: ASCORBIC ACID 500 MG/5 ML ORASYR GT SCH ×2 (08:52→20:22)
[2020-11-29] MEDS: PANTOPRAZOLE 40 MG INJ VIAL IVP SCH (08:52)
[2020-11-29] MEDS: DOCUSATE 100 MG/10 ML UDC GT SCH (08:52)
[2020-11-29] MEDS: VITAMIN D 400 IU TAB NG SCH (08:53)
[2020-11-29] MEDS: PROPOFOL 1000 MG/100 ML PREMIX 100 ML IV PRN (09:56)
[2020-11-29] MEDS ORDERED: fentaNYL citrate 1 MG in NACL 0.9% 80 ML IV PRN (12:25)
--- NOTE | 2020-11-29 12:28 | NUR ---
SPOKE WITH DR KRAMER AT THIS TIME. FENTANYL ORDER RENEWED.
--- NOTE | 2020-11-29 14:05 | NUR ---
WOUND CARE RE-EVALUATION NOTE: NOSE BRIDGE 1X1 CM DARK BROWN DRY SCAB NO CHANGE OF CONDITION, KIRK WOUND SKIN INTACT.
[2020-11-29] MEDS: fentaNYL citrate - 50mL vial 2.5 MG in NACL 0.9% 200 ML IV PRN (14:23)
--- NOTE | 2020-11-29 16:18 | NUR ---
DR MCKEON AT BEDSIDE, WITH TEAM, TO PERFORM EGD. Addendum: 11/29/20 at 1620 by Robina Pacheco RN ERROR WRONG CHART.
--- NOTE | 2020-11-29 19:10 | NUR ---
Received report from VIRIDIANA Quarles PROCESS TREATER. Patient on OGT= Nephro @10ml/hr, ETT->Vent= AC/PC: Rate=26, FiO2=55%, PEEP=6, RICHELLE Jaime for HD access, RYNE PICC= Propofol Drip @20mcg= 5.71, Fentanyl Drip @1mcg= 4.7ml/hr, Levophed @5mcg= 11.25ml/hr, [place], BM x5, Accucheck q6H.
--- NOTE | 2020-11-29 20:03 | NUR ---
RECEIVED PATIENT FROM AM SHIFT. PATIENT WAS SEEN AND ASSESSED. FOUND PT IN SUPINE POSITION. PATIENT IS INTUBATED WITH ETT SIZE 7.5 AND SECURED WITH BITTING BLOCK ANCHOR-FAST AT 22cm. PATIENT IS ON VENT SETTINGS: AC/PC 27, RR 28, PEEP 6, FiO2 50% WITH SPO2 OF 92%. NOTICED ADEQUATE CHEST RISE AND FALL. AMBU BAG AT BEDSIDE. VENT IS PLUGGED IN RED OUTLET. ALARMS SET AND AUDIBLE TO ENVIRONMENT. SUCTIONED SMALL AMOUNT OF YELLOW THICK SECRETIONS FROM ETT. ORAL CARE DONE. SUCTIONED SMALL AMOUNT OF CLEAR WHITE THIN SECRETIONS ORALLY. AIRWAY IS PATENT. AUSCULTATION REVEALS BILATERAL DIMINISHED ON THE UPPER LOBES AND RALES ON THE BASES. FELT SMALL CREPITUS AROUND THE CHEST. PATIENT IS IN NO APPARENT RESPIRATORY DISTRESS AT THIS TIME. WILL CONTINUE TO MONITOR PATIENT.
[2020-11-29] MEDS: PIPERACILLIN/TAZOBACTAM 2.25 GM in DEXTROSE 5% 50 ML IV SCH ×3 (20:10)
[2020-11-30] VITALS (30 sets, daily range): BP systolic 87–148; BP diastolic 42–73
[2020-11-30] MEDS: METOCLOPRAMIDE 10 MG/2 ML INJ VIAL IVP SCH ×3 (00:24→15:12)
[2020-11-30] MEDS: BLOOD GLUCOSE MONITORING 1 DEV DEV MC SCH ×3 (00:25→12:00)
[2020-11-30] MEDS: PIPERACILLIN/TAZOBACTAM 2.25 GM in DEXTROSE 5% 50 ML IV SCH ×3 (05:07→20:43)
[2020-11-30 06:21] LABS: ALBUMIN 1.1 g/dL (3.4-5.0); ANION GAP 18.9 (8-16); CARBON DIOXIDE 21.2 mmol/L (21-32); POTASSIUM 4.1 mmol/L (3.5-5.1); TOTAL BILIRUBIN 1.5 mg/dL (0.0-1.0)
[2020-11-30 06:38] LABS: CREATININE 4.3 mg/dL (0.6-1.3)
[2020-11-30] MEDS: ASCORBIC ACID 500 MG/5 ML ORASYR GT SCH ×2 (09:00→21:15)
[2020-11-30] MEDS: PANTOPRAZOLE 40 MG INJ VIAL IVP SCH (09:00)
[2020-11-30] MEDS: DOCUSATE 100 MG/10 ML UDC GT SCH (09:00)
[2020-11-30] MEDS: VITAMIN D 400 IU TAB NG SCH (09:00)
[2020-11-30 14:45] LABS: HEMOGLOBIN 8.1 g/dL (12.0-18.0); MEAN CORPUSCULAR HEMOGLOBIN 31 pg (27-31); MEAN CORPUSCULAR HGB CONC 34 g/dL (33-37); MEAN CORPUSCULAR VOLUME 92.4 fL (80-94); PLATELET COUNT (AUTO) 122 K/uL (140-450); RED CELL DISTRIBUTION WIDTH 15.4 % (11.6-13.7)
[2020-11-30 14:53] LABS: WHITE BLOOD COUNT (AUTO) 25.8 K/uL (4.8-10.8)
[2020-11-30 15:03] LABS: PROTHROMBIN TIME 10.9 secs (10.8-13.4)
[2020-11-30 15:24] LABS: EOSINOPHILS % (MANUAL) 1 % (0-4); LYMPHOCYTES % (MANUAL) 1 % (20-46); MYELOCYTES % 1 % (0-0); PROMYELOCYTES % 2 % (0-0)
--- NOTE | 2020-11-30 19:30 | NUR ---
RECEIVED PATIENT FROM AM SHIFT. PATIENT WAS SEEN AND ASSESSED. FOUND PT IN SUPINE POSITION. PATIENT IS INTUBATED WITH ETT SIZE 7.5 AND SECURED WITH BITTING BLOCK ANCHOR-FAST AT 22cm @ TEETH. PATIENT IS ON VENT SETTINGS: AC/PC 27, RR 28, PEEP 6, FiO2 50% WITH SPO2 OF 92%. NOTICED ADEQUATE CHEST RISE AND FALL. AMBU BAG AT BEDSIDE. VENT IS PLUGGED IN RED OUTLET. ALARMS SET AND AUDIBLE TO ENVIRONMENT. SUCTIONED SMALL AMOUNT OF YELLOW THICK SECRETIONS FROM ETT. ORAL CARE DONE. SUCTIONED SMALL AMOUNT OF CLEAR WHITE THIN SECRETIONS ORALLY AND PT TOLERATED PROCEDURE WELL. AIRWAY IS PATENT. AUSCULTATION REVEALS BILATERAL DIMINISHED ON THE UPPER LOBES AND RALES ON THE BASES. FELT SMALL CREPITUS AROUND THE CHEST. PATIENT IS IN NO APPARENT RESPIRATORY DISTRESS AT THIS TIME. WILL CONTINUE TO MONITOR PATIENT.
[2020-11-30] MEDS ORDERED: NOREPINEPHRINE 4 MG/4 ML VIAL IV ONE (22:06)
[2020-12-01] VITALS (34 sets, daily range): BP systolic 95–152; BP diastolic 45–63
[2020-12-01] MEDS: PIPERACILLIN/TAZOBACTAM 2.25 GM in DEXTROSE 5% 50 ML IV SCH ×3 (05:27→20:49)
[2020-12-01] MEDS: METOCLOPRAMIDE 10 MG/2 ML INJ VIAL IVP SCH ×4 (05:31→17:48)
[2020-12-01 06:13] LABS: EOSINOPHILS # (AUTO) 0.1 K/uL (0-0.4); EOSINOPHILS % (AUTO) 0.3 % (0.0-4.0); HEMATOCRIT 25.2 % (36-52); HEMOGLOBIN 8.3 g/dL (12.0-18.0); LYMPHOCYTES # (AUTO) 0.7 K/uL (2.0-11.5); LYMPHOCYTES % (AUTO) 3.2 % (20.5-51.1); MEAN CORPUSCULAR HEMOGLOBIN 31 pg (27-31); MEAN CORPUSCULAR HGB CONC 33 g/dL (33-37); MEAN CORPUSCULAR VOLUME 93.3 fL (80-94); MONOCYTES # (AUTO) 0.6 K/uL (0.8-1.0); MONOCYTES % (AUTO) 2.5 % (1.7-9.3); NEUTROPHILS # (AUTO) 22.1 K/uL (1.8-7.7); PLATELET COUNT (AUTO) 135 K/uL (140-450); RED CELL DISTRIBUTION WIDTH 15.6 % (11.6-13.7); WHITE BLOOD COUNT (AUTO) 23.5 K/uL (4.8-10.8)
[2020-12-01 06:18] LABS: ANION GAP 17.2 (8-16); CARBON DIOXIDE 21.6 mmol/L (21-32); CREATININE 3.8 mg/dL (0.6-1.3); POTASSIUM 3.8 mmol/L (3.5-5.1); TOTAL BILIRUBIN 1.3 mg/dL (0.0-1.0)
[2020-12-01] MEDS ORDERED: NOREPINEPHRINE 4 MG/4 ML VIAL IV ONE ×2 (06:18→21:51)
[2020-12-01] MEDS: BLOOD GLUCOSE MONITORING 1 DEV DEV MC SCH ×4 (06:29→17:49)
--- NOTE | 2020-12-01 07:20 | NUR ---
RECEIVED PT REPORT AT THIS TIME FROM NIGHTSKYFT RN. PT LYING IN BED, SEDATED TO RASS -3. DRY WEIGHT 47.6 KG. PUPILS 3 MM, PERRL. RESPONDS TO PAINFUL STIMULI. ETT TO VENT ON PRESCRIBED SETTINGS, SPO2 98%. LUNG SOUNDS DIMINISHED THROUGHOUT. +S1, S2 UPON AUSCULTATION. SR ON MONITOR. OGT IN PLACE. 50 ML RESIDUAL ASPIRATED AND REPLACED. TUBE FEEDING RUNNING ORDERED. FRANCO IN PLACE DRAINING SCANT AMOUNT OF ORANGE COLORED-URINE TO GRAVITY. RT UPPER ARM PICC IN PLACE, INFUSING FENTANYL, LEVOPHED, AND PROPOFOL. SEE IV SPREADSHEET FOR DETAILS. SKIN NOT INTACT, SEE WOUND ASSESSMENT. SAFETY PRECAUTIONS IN PLACE. BED LOW AND LOCKED WITH HOB >30 DEGREES. WILL CONT TO MONITOR FOR CHANGES.
--- NOTE | 2020-12-01 07:29 | NUR ---
DR KRAMER PAGED BY PM SHIFT. NOTIFIED OF CXR RESULTS AT THIS TIME. NO NEW ORDERS, HE WILL BE IN TO SEE PT TODAY.
[2020-12-01] MEDS: DOCUSATE 100 MG/10 ML UDC GT SCH (08:39)
[2020-12-01] MEDS: PANTOPRAZOLE 40 MG INJ VIAL IVP SCH (08:39)
[2020-12-01] MEDS: VITAMIN D 400 IU TAB NG SCH (08:39)
[2020-12-01] MEDS: ASCORBIC ACID 500 MG/5 ML ORASYR GT SCH ×2 (08:39→20:49)
--- NOTE | 2020-12-01 09:00 | NUR ---
LAB IN TO DRAW PTT, WILL FOLLOW UP WITH HEPARIN DRIP, PER PROTOCOL.
--- NOTE | 2020-12-01 11:06 | NUR ---
HEPARIN BOLUS ADMINISTERED ORDERED. HEPARIN DRIP STARTED AT THIS TIME, PER PROTOCOL.
[2020-12-01] MEDS: PROPOFOL 1000 MG/100 ML PREMIX 100 ML IV PRN (11:08)
[2020-12-01] MEDS: INSULIN LISPRO SLIDING SCALE 100 UNITS/ML VIAL SUBQ PRN ×2 (12:00→17:51)
--- NOTE | 2020-12-01 17:00 | NUR ---
DR KRAMER AT BEDSIDE. UPDATED ON PT CONDITION.NEW VERBAL ORDER TO STOP HEPARIN DRIP STAT D/T BLEEDING
[2020-12-01] MEDS ORDERED: MORPHINE SULFATE 4 MG/ML SYR ONE (18:45)
[2020-12-01] MEDS ORDERED: LIDOCAINE MPF 1% 5 ML ONE (18:50)
--- NOTE | 2020-12-01 18:50 | NUR ---
DR RICE AND DR KRAMER AT BEDSIDE TO PLACE RT-SIDED CX TUBE. MORPHINE/LIDOCAINE ADMINISTERED PER VERBAL ORDER.
[2020-12-01] MEDS ORDERED: MORPHINE SULFATE 4 MG/ML SYR IVP SCH (19:25)
[2020-12-01] MEDS ORDERED: LIDOCAINE MPF 1% 10 MG/ML VIAL INJ SCH (19:25)
--- NOTE | 2020-12-01 19:25 | NUR ---
PT REPORT GIVEN TO NIGHTSHIFT RN, AT BEDSIDE, FOR CONTINUITY OF CARE. PICC IN PLACE, PATENT AND INFUSING DRIPS ORDERED.
[2020-12-01] MEDS: fentaNYL citrate - 50mL vial 2.5 MG in NACL 0.9% 200 ML IV PRN (19:34)
--- NOTE | 2020-12-01 19:45 | NUR ---
RECEIVED PT FROM AM SHIFT RN. PT ETT TO VENT.SETTING AC/PC FIO2 80%,PEEP 6 PRESSURE CONTROL [address]OH YADI BELL INSERT RIGHT CHEST TUBE. YELLOW CLEAR DRAINAGE ABOUT 100 CC ON THE BOTTLE. CONTINUOUS ON LOW SUCTION SETTING.PT IS, SEDATED TO RASS -3. DRY WEIGHT 47.6 KG. CONT ON PROPOFOL 25 MCG/KG/MIN, FENTANYL 2 MCG/KG/HR AND LEVOPHED 3 MCG/MIN. IVS RUNNING TO RYNE PICC LINE.RESPONDS TO PAINFUL STIMULI. SR ON MONITOR. OGT IN PLACE. 30 ML RESIDUAL YELLOWISH COLOR ASPIRATED AND REPLACED.NEPRO TUBE FEEDING RUNNING AT 40 CC/HR AND H20 AT 100 CC Q 6 HRS. F/C IN PLACE NO URINE AT THIS TIME. SKIN NOT INTACT, SCAB ON THE TOP OF NOSE. SAFETY PRECAUTIONS IN PLACE. WILL CONT TO MONITOR FOR CLOSELY.
--- NOTE | 2020-12-01 21:00 | NUR ---
NIGHT MEDS GIVEN AND JOEY WELL.
[2020-12-01] MEDS: NOREPINEPHRINE 4 MG in DEXTROSE 5% 250 ML IV PRN (22:05)
--- NOTE | 2020-12-01 22:28 | NUR ---
B/P WAS 90/43,HR 103 ,SPO2 90 AND LEVOPHED INCREASE TO 5MCG/MIN JOEY WELL BP INCREASE TO 96/45 HR 103 SPO2 91 % CONT TO MONITOR.
[2020-12-02] VITALS (34 sets, daily range): BP systolic 0–142; BP diastolic 0–68
[2020-12-02] MEDS: METOCLOPRAMIDE 10 MG/2 ML INJ VIAL IVP SCH ×4 (00:20→18:15)
[2020-12-02] MEDS: BLOOD GLUCOSE MONITORING 1 DEV DEV MC SCH ×4 (00:21→18:14)
--- NOTE | 2020-12-02 00:30 | NUR ---
BLOOD SUGAR 126 NO COVERAGE NEED IT.
--- NOTE | 2020-12-02 01:38 | NUR ---
DELIA JAMISON CALLED AND UP DATED PT CONDITION. MADE AWARE THAT CHEST TUBE IS ALREADY IN PLACE AND WORKING WELL.
[2020-12-02] MEDS: PROPOFOL 1000 MG/100 ML PREMIX 100 ML IV PRN (01:46)
--- NOTE | 2020-12-02 03:00 | NUR ---
B/P WAS 89/46,HR 101 ,SPO2 93 AND LEVOPHED INCREASE TO 8 MCG/MIN FROM 5 MCG/MIN JOEY WELL BP INCREASE TO 98/47 HR 100 SPO2 93 % CONT TO MONITOR.
[2020-12-02] MEDS: PIPERACILLIN/TAZOBACTAM 2.25 GM in DEXTROSE 5% 50 ML IV SCH ×2 (04:39→13:28)
[2020-12-02] MEDS: INSULIN LISPRO SLIDING SCALE 100 UNITS/ML VIAL SUBQ PRN ×2 (05:25→11:23)
--- NOTE | 2020-12-02 05:48 | NUR ---
AM CARE GIVEN,BED BATH AND ORAL CARE. JOEY WELL. CHEST TUBE IN PLACE ABOUT DRAIN OUT 200 CC YELLOWISH COLOR.
--- NOTE | 2020-12-02 06:00 | NUR ---
BLOOD SUGAR 160 AND 2 UNITS GIVEN ORDER.
[2020-12-02 06:14] LABS: ALBUMIN 1.1 g/dL (3.4-5.0); CARBON DIOXIDE 20.1 mmol/L (21-32); POTASSIUM 4.1 mmol/L (3.5-5.1); TOTAL BILIRUBIN 1.2 mg/dL (0.0-1.0)
--- NOTE | 2020-12-02 07:09 | NUR ---
REPORT GIVEN TO AM SHIFT . PT CONT ON SEDATION. NO DISTRESS NOTED.
--- NOTE | 2020-12-02 07:20 | NUR ---
RECEIVED PT REPORT AT THIS TIME FROM NIGHTSTXFT RN. PT LYING IN BED, SEDATED TO RASS -3. DRY WEIGHT 47.6 KG. PUPILS 3 MM, PERRL. RESPONDS TO PAINFUL STIMULI. ETT TO VENT ON PRESCRIBED SETTINGS, SPO2 92%. LUNG SOUNDS DIMINISHED THROUGHOUT. CX TUBE TO RT LATERAL CX WALL FUNCTIONING PROPERLY AND SECURED IN PLACE. CONTINUES ON LOW CONTINUOUS SUCTION PER MD ORDER. +S1, S2 UPON AUSCULTATION. SR ON MONITOR. OGT IN PLACE. 80 ML RESIDUAL ASPIRATED AND REPLACED. TUBE FEEDING RUNNING ORDERED. FRANCO IN PLACE DRAINING SCANT AMOUNT OF ORANGE COLORED-URINE TO GRAVITY. RECTAL TUBE IN PLACE WITH MODERATE AMOUNT OF BROWN, LIQUID-STOOL NOTED TO BAG. RT UPPER ARM PICC IN PLACE, INFUSING FENTANYL, LEVOPHED, AND PROPOFOL. SEE IV SPREADSHEET FOR DETAILS. SKIN NOT INTACT, SEE WOUND ASSESSMENT. SAFETY PRECAUTIONS IN PLACE. BED LOW AND LOCKED WITH HOB >30 DEGREES. WILL CONT TO MONITOR FOR CHANGES.
[2020-12-02 07:39] LABS: CREATININE 4.5 mg/dL (0.6-1.3)
--- NOTE | 2020-12-02 09:00 | NUR ---
DR ADELAIDE BARNES AT WINDOW. UPDATED ON PT CONDITION. NO NEW ORDERS AT THIS TIME.
[2020-12-02] MEDS: DOCUSATE 100 MG/10 ML UDC GT SCH (09:03)
[2020-12-02] MEDS: NOREPINEPHRINE 4 MG in DEXTROSE 5% 250 ML IV PRN (09:03)
[2020-12-02] MEDS: ASCORBIC ACID 500 MG/5 ML ORASYR GT SCH (09:03)
[2020-12-02] MEDS: VITAMIN D 400 IU TAB NG SCH (09:04)
[2020-12-02] MEDS: PANTOPRAZOLE 40 MG INJ VIAL IVP SCH (09:04)
--- NOTE | 2020-12-02 10:30 | NUR ---
FAMILY PROVIDED FACETIME CALL
--- NOTE | 2020-12-02 10:59 | NUR ---
LAB AT BEDSIDE.
--- NOTE | 2020-12-02 11:24 | NUR ---
RESTING BLOOD SUGAR 184. INSULIN ADMINISTERED, PER ORDER. WILL CONT TO MONITOR
[2020-12-02 11:32] LABS: BASOPHILS % (AUTO) 0.2 % (0.0-2.0); EOSINOPHILS # (AUTO) 0.1 K/uL (0-0.4); EOSINOPHILS % (AUTO) 0.2 % (0.0-4.0); HEMATOCRIT 25.9 % (36-52); HEMOGLOBIN 8.3 g/dL (12.0-18.0); LYMPHOCYTES # (AUTO) 0.5 K/uL (2.0-11.5); LYMPHOCYTES % (AUTO) 1.9 % (20.5-51.1); MEAN CORPUSCULAR HEMOGLOBIN 30 pg (27-31); MEAN CORPUSCULAR HGB CONC 32 g/dL (33-37); MEAN CORPUSCULAR VOLUME 95.1 fL (80-94); MONOCYTES # (AUTO) 0.5 K/uL (0.8-1.0); NEUTROPHILS # (AUTO) 25.2 K/uL (1.8-7.7); NEUTROPHILS % (AUTO) 95.7 % (42.2-75.2); PLATELET COUNT (AUTO) 138 K/uL (140-450); RED BLOOD CELL COUNT(AUTO) 2.73 MIL/uL (4.20-6.10); RED CELL DISTRIBUTION WIDTH 16.4 % (11.6-13.7)
[2020-12-02 11:42] LABS: WHITE BLOOD COUNT (AUTO) 26.3 K/uL (4.8-10.8)
--- NOTE | 2020-12-02 14:25 | NUR ---
SPOKE TO DELIA BECKMAN, UPDATED ON PT CONDITION, EDUCATED REGARDING OPTIONAL CODE STATUSES. HE WILL SPEAK WITH FAMILY AND CALL BACK TO UPDATE.
--- NOTE | 2020-12-02 14:31 | NUR ---
LEFT MESSAGES FOR JAYESH SAMUELS IN CASE MANAGEMENT AT THIS TIME FOR F/U WITH FAMILY R/T CODE STATUS AND APPOINTED DECISION MAKER. AWAITING CALL BACK
--- NOTE | 2020-12-02 14:40 | NUR ---
HEMODIALYSIS STARTED AT THIS TIME.
--- NOTE | 2020-12-02 14:50 | NUR ---
PAGED DR KRAMER FOR AN ADDITIONAL PRESSOR ORDER AT THIS TIME. PT LEVOPHED MAXED, HEMODIALYSIS IN PROGRESS.
[2020-12-02] MEDS ORDERED: NOREPINEPHRINE 4 MG/4 ML VIAL IV ONE (15:14)
--- NOTE | 2020-12-02 15:30 | NUR ---
RE-PAGED DR KRAMER AT THIS TIME. AWAITING CALL-BACK.
--- NOTE | 2020-12-02 15:55 | NUR ---
PAGED DR NATION AT THIS TIME FOR NEW ORDERS. AWAITING CALL BACK.
[2020-12-02] MEDS ORDERED: NOREPINEPHRINE 16 MG in DEXTROSE 5% 250 ML IV PRN (16:10)
[2020-12-02] MEDS ORDERED: VASOPRESSIN 20 UNITS in NACL 0.9% 250 ML IV SCH (16:10)
[2020-12-02] MEDS ORDERED: PHENYLEPHRINE 10 MG in NACL 0.9% 250 ML IV PRN (17:00)
--- NOTE | 2020-12-02 18:56 | NUR ---
1848 CODE BLUE CALLED. COMPRESSIONS STARTED AND ACLS DRUGS GIVEN. HEART RATE WAS BROUGHT BACK. PATIENT ON VENTILATOR SAME SETTING PLUS 100% FIO2
--- NOTE | 2020-12-02 19:22 | NUR ---
REPORT GIVEN TO NIGHTSHIFT NURSE, AT BEDSIDE, FOR CONTINUITY OF CARE. PT REMAINS IN CRITICAL CONDITION.
[2020-12-02] MEDS ORDERED: PHENYLEPHRINE 10 MG/ML VIAL ONE ×3 (19:25→20:24)
--- NOTE | 2020-12-02 19:30 | NUR ---
RECEIVED REPORT FROM LOLY RANGEL PATIENT IS S/P CPR ,AT THIS TIME IS ALREADY ON MAXI OF PRESSORES MAX OF LEVO AT 30 MCG,MAX OF VASOPRESSIN AT 0.04,MAX OF AURE AT 150.PATIENT IS UNRESPONSIVE HAVING AGONAL RESPIRATION ON 100% FIO2 ON VENTILATOR,FEMORAL PULSE IS FAINT BY DOPPLER BLOOD PRESSURWE IS IN THE 40 SYSTOLIC.SILHOUETTE ARTIST SPOKE TO FAMILY AND ARE BEING ALLOWED TO SEE HIM PATIENT REMAIN LASHAWN CRITICAL,
--- NOTE | 2020-12-02 19:40 | NUR ---
DAUGHTER TISHA MALIK AND SON KARUNA MALIK WITH DAUGHTER IN LAW AT [facility], EXPLAINED PT'S CONDITION, THEY STATED THAT ALL FAMILY MEMBER DISCUSSED CODE STATUS, WANT TO MAKE MODIFIED CODE: NO MORE CHEST COMPRESSIONS, NO DEFIBRILLATIONS, THEY ONLY WANT ACLS MEDS GIVEN, POLST FORM FILLED OUT AND SIGNED BY DAUGHTER TISHA MALIK, DR OSORIO CALLED TO NOTIFY OF FAMILY'S DECISION, TORB FOR MODIFIED CODE.
--- NOTE | 2020-12-02 20:36 | NUR ---
CODE BLUE INITIATED; ACLS MEDS ONLY PER FAMILY. PT @ 2041, FAMILY MADE AWARE. SEE CODE BLUE SHEET FOR FURTHER DETAILS.
--- NOTE | 2020-12-02 20:42 | NUR ---
PRONOUNCED BY DR ANABELA GARCIAS.
--- NOTE | 2020-12-02 21:00 | NUR ---
FAMILY MEMBERS ALLOWED TO SEE THE BODY .
--- NOTE | 2020-12-02 21:43 | NUR ---
BUSINESS ANALYTICS DIRECTOR, [facility], DISPATCH, [place] [phone] WILL HAVE BUSINESS ANALYTICS DIRECTOR CALL BACK.
--- NOTE | 2020-12-02 22:00 | NUR ---
[facility] INFORMED THE NO IS [id number]
--- NOTE | 2020-12-02 22:30 | NUR ---
POST MORTEM CARE DONE
== END 2020-12-02 20:42 | DRG 870 ==
LOC: MED 05:53 → MTU 11:04 → MMU 11-06 10:13 → MTU 11-06 16:48 → MIC 11-18 14:54
PROVIDERS: ADMIT Internal Medicine; ATTEND Internal Medicine
PROC: 5A09457 Assistance with Respiratory Ventilation, 24-96 Consecutive Hours, Continuous Positive Airway Pressure (ICD-10-PCS; 2020-11-05)
PROC: XW033E5 Introduction of Remdesivir Anti-infective into Peripheral Vein, Percutaneous Approach, New Technology Group 5 (ICD-10-PCS; 2020-11-05)
PROC: XW13325 Transfusion of Convalescent Plasma (Nonautologous) into Peripheral Vein, Percutaneous Approach, New Technology Group 5 (ICD-10-PCS; 2020-11-06)
PROC: 5A09457 Assistance with Respiratory Ventilation, 24-96 Consecutive Hours, Continuous Positive Airway Pressure (ICD-10-PCS; 2020-11-14)
PROC: 5A09357 Assistance with Respiratory Ventilation, Less than 24 Consecutive Hours, Continuous Positive Airway Pressure (ICD-10-PCS; 2020-11-18)
PROC: 02HV33Z Insertion of Infusion Device into Superior Vena Cava, Percutaneous Approach (ICD-10-PCS; 2020-11-18)
PROC: 5A1955Z Respiratory Ventilation, Greater than 96 Consecutive Hours (ICD-10-PCS; principal; 2020-11-19)
PROC: 0BH17EZ Insertion of Endotracheal Airway into Trachea, Via Natural or Artificial Opening (ICD-10-PCS; 2020-11-19)
PROC: 5A09357 Assistance with Respiratory Ventilation, Less than 24 Consecutive Hours, Continuous Positive Airway Pressure (ICD-10-PCS; 2020-11-19)
PROC: 02HV33Z Insertion of Infusion Device into Superior Vena Cava, Percutaneous Approach (ICD-10-PCS; 2020-11-25)
PROC: B548ZZA Ultrasonography of Superior Vena Cava, Guidance (ICD-10-PCS; 2020-11-25)
PROC: 0W9930Z Drainage of Right Pleural Cavity with Drainage Device, Percutaneous Approach (ICD-10-PCS; 2020-12-01)
PROC: 5A12012 Performance of Cardiac Output, Single, Manual (ICD-10-PCS; 2020-12-02)
DX: A41.9 Sepsis, unspecified organism (principal); U07.1 COVID-19; J96.01 Acute respiratory failure with hypoxia; N17.0 Acute kidney failure with tubular necrosis; R65.21 Severe sepsis with septic shock; J15.6 Pneumonia due to other Gram-negative bacteria; J12.82 Pneumonia due to coronavirus disease 2019; S27.0XXA Traumatic pneumothorax, initial encounter; E46 Unspecified protein-calorie malnutrition; Z68.1 Body mass index [BMI] 19.9 or less, adult; E11.9 Type 2 diabetes mellitus without complications; E87.5 Hyperkalemia; I25.10 Atherosclerotic heart disease of native coronary artery without angina pectoris; I10 Essential (primary) hypertension; X58.XXXA Exposure to other specified factors, initial encounter; Y93.89 Activity, other specified; Z83.3 Family history of diabetes mellitus; Z82.49 Family history of ischemic heart disease and other diseases of the circulatory system; Y92.89 Other specified places as the place of occurrence of the external cause; Y99.8 Other external cause status
CPT/HCPCS: 36415; 36430; 36600; 71045; 80048; 80053; 82550; 82728; 82803; 82948; 83605; 83625; 83735; 83880; 84100; 84300; 84484; 85025; 85379; 85384; 85610; 85730; 86140; 86704; 86706; 86708; 86709; 86803; 86900; 86901; 87040; 87070; 87081; 87205; 87340; 87804; 92950; 93005; 94003; 94640; 94660; 96365; 96368; 96372; 96375; 99291; A9153; C9113; J0456; J0610; J0696; J1100; J1644; J1650; J1815; J1956; J2001; J2060; J2270; J2370; J2543; J2704; J2765; J3010; J3370; J3490; J7030; J7060; P9017; U0003